=== PATIENT | female | born 1950 | race Caucasian/White ===

== ENCOUNTER → 2023-04-11 | Outpatient (CLI) | payer MEDICARE, OTHER ==
--- NOTE | 2023-04-11 14:58 | XR ---
EXAMINATION TYPE: XR chest 2V DATE OF EXAM: 04/11/2023 2:51 PM CLINICAL INDICATION:Female, 72 years old with history of Z01.818 ENCOUNTER FOR OTHER PREPROCEDURAL EX AM; [facility] COMPARISON: Chest radiographs from 04/11/2023 TECHNIQUE: XR chest 2V Frontal and lateral views of the chest. FINDINGS: Lungs/Pleura: There is no evidence of pleural effusion, focal consolidation, or pneumothorax. Pulmonary vascularity: Unremarkable. Heart/mediastinum: Cardiomediastinal silhouette is unremarkable. Musculoskeletal: No acute osseous pathology. IMPRESSION: No acute cardiopulmonary disease/process.
[2023-04-11 21:05] LABS: Basophils # (A) 0.05 X 10*3/uL (0.00-0.10); Basophils % (A) 0.5 %; Eosinophils # (A) 0.06 X 10*3/uL (0.04-0.35); Eosinophils % (A) 0.6 %; HCT 46.4 % (37.2-46.3); HGB 14.9 d/dL (12.0-15.0); Lymphocytes % (A) 24.9 %; MCH 29.6 pg (27.0-32.0); MCHC 32.1 d/dL (32.0-37.0); MCV 92.2 FL (80.0-97.0); Mean Platelet Volume 12.2 FL (9.5-12.2); Monocytes # (A) 0.76 X 10*3/uL (0.20-1.00); Monocytes % (A) 7.6 %; NRBC Per 100 WBC 0 X 10*3/uL (0.00-0.01); Neutrophils # (A) 6.64 X 10*3/uL (1.80-7.70); Neutrophils % (A) 66.1 %; Platelet Count 211 X 10*3/uL (140-440); RBC 5.03 X 10*6/uL (4.10-5.20); RDW 14.1 % (11.5-14.5); WBC 10.04 X 10*3/uL (4.50-10.00)
[2023-04-11 21:41] LABS: Blood Urea Nitrogen 21.7 mg/dL (9.0-27.0); Calcium 9.8 mg/dL (8.7-10.3); Carbon Dioxide 23.7 mmol/L (21.6-31.8); Chloride 103 mmol/L (96-109); Glucose 96 mg/dL (70-110); Potassium 3.8 mmol/L (3.5-5.5); Sodium 141 mmol/L (135-145)
== END | disposition home or self-care (01) ==
LOC: LABWHC1 13:47
PROVIDERS: ATTEND Orthopaedic Surgery
DX: Z01.818 Encounter for other preprocedural examination (principal); I49.3 Ventricular premature depolarization; R94.31 Abnormal electrocardiogram [ECG] [EKG]
CPT/HCPCS: 36415; 71046; 80048; 85025; 86850; 86900; 86901; 87070; 93005

== ENCOUNTER → 2023-04-22 | Outpatient (CLI) | payer MEDICARE, OTHER ==
[2023-04-22 21:48] LABS: Chol/HDL Ratio 4.85 Ratio; T4, Free (Free Thyroxine) 1.18 ng/dL (0.80-1.80)
== END | disposition home or self-care (01) ==
LOC: LABWHC1 13:21
PROVIDERS: ATTEND Internal Medicine Clinical Cardiac Electrophysiology
DX: I49.3 Ventricular premature depolarization (principal); E78.5 Hyperlipidemia, unspecified
CPT/HCPCS: 36415; 80061; 83721; 84439; 84443

== ENCOUNTER 2023-05-30 10:35 | Inpatient (IN) | payer MEDICARE, OTHER ==
[~2023-05-30 10:35] MED LIST: ALPRAZolam 0.25 MG TAB PO PRN; ASPIRIN 325 MG TAB PO STA; ATORVASTATIN 80 MG TAB PO STA; HEPARIN SODIUM,PORCINE (1 ML) 2,500 UNIT in SODIUM CHLORIDE 0.9% 250 ML IRRIGATION PRN; HEPARIN SODIUM,PORCINE 10,000 UNIT in SODIUM CHLORIDE 0.9% 1,000 ML IRRIGATION PRN; NITROGLYCERIN SL TABS 0.4 MG TAB SUBLINGUAL PRN; SODIUM CHLORIDE 0.9% 1,000 ML IV ONE
[2023-05-30] MEDS: ALPRAZolam 0.5 MG TAB PO PRN (11:02)
[2023-05-30] MEDS ORDERED: ACETAMINOPHEN TAB 500 MG TAB PO ONE (11:03)
[2023-05-30 11:09] LABS: Basophils # (A) 0.1 k/uL (0-0.2); Basophils % (A) 1 %; Eosinophils # (A) 0.1 k/uL (0-0.7); Eosinophils % (A) 1 %; HCT 44.2 % (34.0-46.0); HGB 14.6 gm/dL (11.4-16.0); Lymphocytes # (A) 2.6 k/uL (1.0-4.8); Lymphocytes % (A) 27 %; MCH 30.5 pg (25.0-35.0); MCHC 33.1 g/dL (31.0-37.0); MCV 92.2 fL (80.0-100.0); Mean Platelet Volume 8.7; Monocytes # (A) 0.5 k/uL (0-1.0); Monocytes % (A) 5 %; Neutrophils # (A) 6.3 k/uL (1.3-7.7); Neutrophils % (A) 65 %; Platelet Count 203 k/uL (150-450); RDW 14.2 % (11.5-15.5); WBC 9.6 k/uL (3.8-10.6)
[2023-05-30 11:44] LABS: African American GFR (CKD) >90 (>60 ml/min/1.73 sqM); Anion Gap 13 mmol/L; Blood Urea Nitrogen 21 mg/dL (7-17); Calcium 9.6 mg/dL (8.4-10.2); Carbon Dioxide 23 mmol/L (22-30); Chloride 102 mmol/L (98-107); Glucose 102 mg/dL (74-99); Non-African American GFR(CKD) >90 (>60 ml/min/1.73 sqM); Potassium 4.3 mmol/L (3.5-5.1); Sodium 138 mmol/L (137-145)
[2023-05-30] MEDS ORDERED: fentaNYL (PF) 50 MCG/ML 2 ML AMP ONE ×2 (13:41→14:19)
[2023-05-30] MEDS ORDERED: VERAPAMIL 2.5 MG/ML 2 ML AMP ONE ×2 (13:41→16:09)
[2023-05-30] MEDS: fentaNYL (PF) 50 MCG/ML 2 ML AMP IVP ONE ×8 (13:45→15:04)
[2023-05-30] MEDS: MIDAZOLAM 2 MG/2 ML VIAL IVP ONE ×8 (13:55→15:18)
[2023-05-30] MEDS ORDERED: LIDOCAINE 1% INJ 10MG/ML (20 ML MDV) SQ ONE (13:55)
[2023-05-30] MEDS ORDERED: VERAPAMIL 2.5 MG/ML 2 ML AMP INTRAARTER ONE (13:57)
[2023-05-30] MEDS ORDERED: HEPARIN SODIUM 1,000 UN/ML (10ML VL) ONE ×3 (14:00→16:08)
[2023-05-30] MEDS: HEPARIN SODIUM 1,000 UN/ML (10ML VL) IV ONE ×5 (14:01→16:26)
--- NOTE | 2023-05-30 14:38 | P.CARDCATH ---
Date of Procedure: 05/30/23 Description of Procedure: DIAGNOSTIC CORONARY ANGIOGRAPHY and LEFT HEART CATH REPORT PROCEDURES PERFORMED: Left heart catheterization Selective coronary angiography Moderate conscious sedation 26 mins Right radial access INDICATION: Positive nuclear stress test Patient was seen in the clinic for perioperative cardiac risk assessment for hip surgery. For this she underwent Lexiscan nuclear stress test which showed reversible perfusion defect inferolateral wall. For this she was scheduled for an outpatient heart catheterization. CONSENT: I have discussed the risks, benefits and alternative therapies for the above-mentioned procedure, sedation/analgesia and necessary blood product administration (if indicated, as they pertain to this patient). The patient has indicated understanding and acceptance of the risks and procedures discussed. Conscious Sedation: Patient's ECG, heart rate, blood pressure, pulse oximetry was monitored throughout the duration of procedure under my direct supervision. 3 mg Versed and 75 mg Fentanyl were used for induction of moderate conscious sedation. Total duration of moderate concious sedation 26 minutes. PROCEDURE: After explaining the risks, benefits and alternatives of the above mentioned procedures in detail to the patient, informed consent was obtained. Patient was taken to the catheterization lab, prepped and draped in usual ster ile fashion using universal precuations. Barbow and matthew test were performed to confirm adequate perfusion to fingers. Ultrasound was used to identify the radial artery. 1% lidocaine was infiltrated over the right radial artery. A 6- Latvian sheath was placed and secured in the right radial artery using modified Seldinger technique. The sheath was flushed and 5 mg verapamil was administered intra-arterially. J tipped wire was advanced under fluoroscopic guidance. Once the wire tip reached aortic root [5000] units of IV heparin was given. Over the wire JL4 diagnostic catheter was advanced. Wire was removed, catheter was flushed and manipulated under fluoroscopy to selectively engaged the left coronary ostium. Left coronary angioplasty was performed in different angiographic projections. This catheter was exchanged for a JR4 diagnostic catheter over the wire. The catheter was flushed and manipulated to cross the aortic valve. LV pressures were obtained. Pullback was performed across aortic valve and catheter was manipulated to selectively engage the right coronary ostium under fluoroscopic guidance. Right coronary angiography was performed in different angiographic projections. Catheter was removed over the wire. Radial sheath was flushed. Decision was made to proceed with further assessment of LAD stenosis by FFR and possible intervention HEMODYNAMICS: Aortic Pressure: 194/84 mmHg. LV pressure: 206/14 mmHg. LVEDP 30 mmHg. SELECTIVE CORONARY ARTERIOGRAPHY: LEFT MAIN: The left main is a large caliber vessel which trifurcates into the LAD, ramus and circumflex. Left main appears angiographically normal. RAMUS: Medium-sized vessel and appears angiographically normal. LEFT ANTERIOR DESCENDING CORONARY ARTERY: LAD is a large caliber vessel which wraps around to the apex. Proximal LAD has 10% luminal irregularities. Mid LAD just after giving diagonal branch has 80% calcific stenosis. Distal LAD has 20% luminal irregularities. It gives rise to a medium-sized diagonal branch which is approximately 2 mm in size. Proximal segment has 50-60% stenosis, LEFT CIRCUMFLEX CORONARY ARTERY: It is nondominant vessel. 100% occluded, calcific. Getting fillled retrogradely with left left and [id number] collaterals. RIGHT CORONARY ARTERY: Dominant vessel. The right coronary artery is a large caliber vessel which givesRV marginal , PDA and PLV branch. It has 20-30% luminal irregularities diffusely. IMPRESSION: 100% calcific stenosis of LCx with left left collaterals and [id number] collaterals 80% mid LAD disease 60% proximal diagonal disease 20-30% diffuse RCA disease PLAN: Plan for I have FFR assessment and possible PCI Performing Physician Juan Luis Pathak MD
[2023-05-30] MEDS ORDERED: CLOPIDOGREL 75 MG TAB ONE (14:43)
[2023-05-30] MEDS ORDERED: CLOPIDOGREL 75 MG TAB PO ONE (14:46)
[2023-05-30] MEDS ORDERED: IOPAMIDOL-370 100ML BTL INJ ONE ×4 (15:00→16:34)
[2023-05-30] MEDS ORDERED: SODIUM CHLORIDE 0.9% 1,000 ML IV ONE (15:04)
[2023-05-30] MEDS ORDERED: NITROGLYCERIN 1000MCG/10ML SYRINGE INTRACORON ONE ×2 (15:06→15:28)
[2023-05-30] MEDS ORDERED: HEPARIN SODIUM 1,000 UN/ML (10ML VL) IV ONE (15:09)
[2023-05-30] MEDS ORDERED: PROPOFOL 10 MG/ML 20 ML VIAL IV ONE (15:15)
[2023-05-30] MEDS ORDERED: ROCURONIUM 10 MG/ML (5 ML VIAL) IV ONE (15:15)
[2023-05-30] MEDS ORDERED: KETAMINE HCL IN 0.9 % NACL 50 MG/5 ML SYRINGE ONE (15:15)
[2023-05-30] MEDS ORDERED: PHENYLEPHRINE-0.9% NACL SYG 1,000 MCG/10 ML SYRINGE IVP ONE (15:39)
[2023-05-30] MEDS ORDERED: NALOXONE 0.4 MG/ML 1 ML VIAL IV PRN (17:30)
[2023-05-30 18:14] LABS: Glucose,Whole Blood 108 mg/dL (70-110)
[2023-05-30] MEDS: SODIUM CHLORIDE 0.9% 1,000 ML in EMPTY BAG 1 BAG IV SCH ×2 (18:27→22:42)
[2023-05-30] MEDS: NOREPINEPHRINE 4 MG in SODIUM CHLORIDE 0.9% 250 ML IV SCH (19:30)
--- NOTE | 2023-05-30 19:33 | XR ---
EXAMINATION TYPE: XR chest 1V DATE OF EXAM: 05/30/2023 7:16 PM CLINICAL INDICATION:Female, 72 years old with history of intubated; [facility] COMPARISON: Chest x-ray 04/11/2023 TECHNIQUE: XR chest 1V Frontal view of the chest. FINDINGS: Lines/Tubes/Devices: ET tube tip 3.4 cm above sachin. NG tube traverses below the diaphragm on the left with tip beyond th e field of view. There seems to be a peripheral catheter on the left with its tip over the axilla, co uld be PICC or midline. EKG leads overlie the chest. Heart/mediastinum: Cardiomediastinal silhouette partially obscured by the lung opacities. Heart is li ramses not significantly enlarged. Partially calcified aorta. Pulmonary vascularity: Not increased, Lungs/Pleura: Near complete opacification of the left hemithorax, with evidence of volume loss and sh ift of cardiomediastinal structures towards the left. Right lung appears slightly hyperinflated and c lear. No pneumothorax evident. Musculoskeletal: No acute osseous abnormality demonstrated in the limits of the exam. Mild degenerat emmett changes. Other findings: None. IMPRESSION: 1. Lines in place as above. 2. Near complete opacification of the left hemithorax. Likely considerations include atelectasis, wi th an element of parenchymal consolidation and/or pleural effusion possible.
[2023-05-30 19:53] LABS: ABG HCO3 23 mmol/L (21-25); ABG Oxygen Saturation 99.6 % (94-97); ABG PCO2 47 mmHg (35-45); ABG PH 7.29 (7.35-7.45); ABG PO2 308 mmHg (83-108); ABG TCO2 24 mmol/L (19-24); Allen Test Performed? Yes
[2023-05-30 19:55] LABS: Basophils # (A) 0.1 k/uL (0-0.2); Basophils % (A) 0 %; Eosinophils % (A) 0 %; HCT 43.4 % (34.0-46.0); HGB 14.1 gm/dL (11.4-16.0); Hypochromasia Slight; Lymphocytes # (A) 2.3 k/uL (1.0-4.8); Lymphocytes % (A) 17 %; MCH 30.8 pg (25.0-35.0); MCHC 32.4 g/dL (31.0-37.0); Mean Platelet Volume 8.4; Monocytes # (A) 0.8 k/uL (0-1.0); Monocytes % (A) 6 %; Neutrophils # (A) 10.4 k/uL (1.3-7.7); Neutrophils % (A) 76 %; Platelet Count 196 k/uL (150-450); RBC 4.57 m/uL (3.80-5.40); RDW 14.2 % (11.5-15.5); WBC 13.7 k/uL (3.8-10.6)
[2023-05-30 20:12] LABS: African American GFR (CKD) >90 (>60 ml/min/1.73 sqM); Anion Gap 13 mmol/L; Blood Urea Nitrogen 18 mg/dL (7-17); Calcium 8.6 mg/dL (8.4-10.2); Carbon Dioxide 18 mmol/L (22-30); Chloride 107 mmol/L (98-107); Glucose 99 mg/dL (74-99); Non-African American GFR(CKD) >90 (>60 ml/min/1.73 sqM); Potassium 3.8 mmol/L (3.5-5.1); Sodium 138 mmol/L (137-145)
[2023-05-30] MEDS ORDERED: MAG HYDROX/AL HYDROX/SIMETH 30 ML CUP PO PRN (21:30)
[2023-05-30] MEDS ORDERED: RX INFO: IV CONTRAST WAS GIVEN 1 EACH MISC MISCELLANE PRN (21:30)
[2023-05-30] MEDS ORDERED: ATROPINE SULFATE 0.1 MG/ML 10ML SYRINGE IV PRN (21:30)
[2023-05-30] MEDS ORDERED: ASPIRIN 81 MG PO PRN (21:31)
[2023-05-30 22:30] LABS: ABG Base Excess -4.1 mmol/L; ABG HCO3 22 mmol/L (21-25); ABG Oxygen Saturation 98.8 % (94-97); ABG PCO2 39 mmHg (35-45); ABG PH 7.35 (7.35-7.45); ABG PO2 134 mmHg (83-108); ABG TCO2 23 mmol/L (19-24); Allen Test Performed? Yes
[2023-05-30] MEDS: SODIUM CHLORIDE 0.9% 1,000 ML IV SCH (22:44)
[2023-05-30] MEDS: HYDROmorphone 0.5 MG/0.5 ML SYRINGE IVP PRN (23:06)
[2023-05-30 23:34] LABS: ALT 40 U/L (4-34); AST 127 U/L (14-36); African American GFR (CKD) >90 (>60 ml/min/1.73 sqM); Albumin 3.6 g/dL (3.5-5.0); Alkaline Phosphatase 97 U/L (38-126); Anion Gap 12 mmol/L; Blood Urea Nitrogen 18 mg/dL (7-17); Calcium 8.5 mg/dL (8.4-10.2); Carbon Dioxide 18 mmol/L (22-30); Chloride 108 mmol/L (98-107); Glucose 101 mg/dL (74-99); Non-African American GFR(CKD) >90 (>60 ml/min/1.73 sqM); Potassium 4.2 mmol/L (3.5-5.1); Sodium 138 mmol/L (137-145); Total Bilirubin 0.7 mg/dL (0.2-1.3); Total Protein 6.2 g/dL (6.3-8.2)
--- NOTE | 2023-05-30 23:54 | P.PRCINT ---
Percutaneous Coronary Int. - Percutaneous Coronary Intervention Percutaneous Coronary Intervention: PROCEDURES PERFORMED: Left coronary angiography, CSI rotational atherectomy LAD, PTCA diagonal 1 with a 2.5 x 12 balloon, PCI left main into LAD with overlapping 4.0 x 18mm and 4.0 x 15mm Xience MARSHA, post dilated with a 4.0 NC balloon, iFR diagonal/LAD, IVUS LAD INDICATION: Abnormal stress test, preoperative clearance PROCEDURE: After the risks, benefits and alternatives of the above mentioned procedure explained in detail with the patient, informed consent was obtained. Patient was taken to the catheterization lab and prepped and draped in usual fashion. A 6-Algerian sheath had been placed in the right radial artery. There was concern of diagonal and LAD disease with possible balance ischemia on stress test in addition to the circumflex disease. Therefore I was asked to perform iFR of the LAD and diagonal branch. Heparin was given. The FL 3.5 catheter was used to engage the left main. A 0.014 pressure wire was advanced into the left main and normalized. It was then advanced into the proximal d iagonal branch, 1 cm distal to the ostium and was abnormal at 0.79. The 0.014 pressure wire was advanced into LAD and iFR was abnormal at 0.77. Patient did have difficulty with laying flat secondary to extreme hip pain. Discussed significant CAD and need to lay flat for any intervention and patient felt would be able to lay flat. Therefore patient was given increased sedation and decision was made to perform PCI of diagonal and LAD. Initially attempted a CLS 3.5 however was too big. A 6Fr CLS 3.0 catheter was used to engage the left main. There was significant calcification and therefore decision was made to perform atherectomy. A 0.014 Viper wire was advanced into the distal LAD. CSI rotational atherectomy was performed of the LAD for 2 passes at low and 1 at high rpms. Next ballon angioplasty was performed with a 3.0 balloon. IVUS showed refernece vessel 3.75 x 4.0 vessel. A 0.014 BMW wire was advanced into the diagonal 1. Balloon angioplasty was performed of the diagonal 1 branch with a 2.5 x 12 mm balloon. Next balloon angioplasty was performed of the mid LAD with a 3.75 NC balloon. Finally repeat angioplasy was performed of the diagonal branch with a 2.5 NC balloon. Patient had struggled throughout procedure with agitation, moving off the table, and therefore anesthesia was called. Anesthesia was able to supply more sedation. Next a 4.0 x 15mm Xience MARSHA was placed in the mid LAD. The stent was post dilated with a 3.75 NC balloon. Patient did have progressive hypotension of unclear etiology and quickly went into vfib requiring defib. Repeat IVUS was performed which showed good stent apposition however a calcified left main into proximal LAD stenosis however appeared stable and initially felt best treated medically. Patient however was attempted to be weaned from sedation and had hypoxia and then had a second vfb arrest. Given repeat vfib, further angiography was performed with a 6Fr CLS 3.5 catheter. A 0.014 BMW wire was again advanced into the distal LAD. Repeat IVUS showed concern of left main into LAD disease. Therefore decision was made to cover left main into LAD. Balloon angioplasty was performed of the left main into LAD with a 4.0 NC balloon. Next a 4.0 x 18 mm XIence MARSHA was placed in the left main into LAD, overlapping the first stent. The stent was post dilated with a 4.0 NC balloon. Final angiograms were performed. Preintervention there was 70% LAD stenosis and DMITRI 3 flow and post intervention there was < 10 % stenosis and DMITRI 3 flow. The right radial sheath was removed and a TR band was placed with hemostasis achieved. The patient tolerated the procedure well. Patient was transported back to the post catheterization holding area in stable condition. Conscious Sedation: Patient was monitored under the direct supervision of myself for conscious sedation using Versed and fentanyl for a total duration of 144 minutes HEMODYNAMICS: Aorta: 133/71 SELECTIVE CORONARY ARTERIOGRAPHY: LEFT MAIN: The left main is a large caliber vessel which bifurcates into the LAD and circumflex. There is distal left main 40-50% stenosis extending into LAD. LEFT ANTERIOR DESCENDING CORONARY ARTERY: LAD is a large caliber vessel which wraps around to the apex. There is a proximal LAD 60-70% stenosis and a mid LAD eccentric LAD 70% stenosis. There is a mid LAD 40-50% stenosis. Diagonal 1 70% stenosis LEFT CIRCUMFLEX CORONARY ARTERY: Left circumflex is a moderate caliber vessel with proximal 100% stenosis with left to left collaterals RIGHT CORONARY ARTERY: The right coronary artery was not imaged, see separate report. FINAL IMPRESSION: 1. CAD as described above including 40-50% left main, proximal LAD 60-70%, mid LAD 70%, diagonal 1 70% stenosis, circumflex 100% stenosis. 2. iFR abnormal diagonal 1 and LAD 3. S/p PTCA diagonal 1 with a 2.5 x 12 balloon, PCI left main into LAD with overlapping 4.0 x 18mm and 4.0 x 15mm Xience MARSHA, post dilated with a 4.0 NC balloon 4. Vfib arrest x 2, likely related to ischemia, possibly related to CAD vs hypoxia/ sedation PLAN: 1. Aggressive risk factor modification per most recent ACC/AHA guidelines. 2. Continue dual antiplatelets with aspirin and Plavix for ideally 12 months given long area of stenosis as well as bifurcation lesion. 3. Tobacco cessation recommended.
[2023-05-31] MEDS: CHLORHEXIDINE GLUCONATE 15 ML CUP MUCOUS MEM SCH ×2 (00:11→08:01)
[2023-05-31 01:26] LABS: Glucose,Whole Blood 124 mg/dL (70-110)
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
[2023-05-31 04:48] LABS: Basophils % (A) 0 %; Eosinophils % (A) 0 %; HCT 37.1 % (34.0-46.0); HGB 12.3 gm/dL (11.4-16.0); Lymphocytes # (A) 1.9 k/uL (1.0-4.8); Lymphocytes % (A) 19 %; MCH 30.6 pg (25.0-35.0); MCHC 33.2 g/dL (31.0-37.0); MCV 91.9 fL (80.0-100.0); Mean Platelet Volume 8.7; Monocytes # (A) 0.7 k/uL (0-1.0); Monocytes % (A) 7 %; Neutrophils % (A) 72 %; Platelet Count 184 k/uL (150-450); RBC 4.03 m/uL (3.80-5.40); RDW 14.4 % (11.5-15.5); WBC 9.7 k/uL (3.8-10.6)
[2023-05-31 04:59] LABS: African American GFR (CKD) >90 (>60 ml/min/1.73 sqM); Anion Gap 10 mmol/L; Blood Urea Nitrogen 17 mg/dL (7-17); Calcium 8.5 mg/dL (8.4-10.2); Carbon Dioxide 21 mmol/L (22-30); Chloride 108 mmol/L (98-107); Glucose 90 mg/dL (74-99); Non-African American GFR(CKD) >90 (>60 ml/min/1.73 sqM); Potassium 3.6 mmol/L (3.5-5.1); Sodium 139 mmol/L (137-145)
[2023-05-31] MEDS: IPRATROPIUM-ALBUTEROL 3 ML NEB INHALATION SCH ×3 (05:04→12:08)
[2023-05-31 05:38] LABS: ABG HCO3 23 mmol/L (21-25); ABG PCO2 40 mmHg (35-45); ABG PH 7.37 (7.35-7.45); ABG PO2 146 mmHg (83-108); ABG TCO2 25 mmol/L (19-24); Allen Test Performed? Yes
[2023-05-31] MEDS ORDERED: POTASSIUM BICARBONATE/CIT AC 20 MEQ TABLET.EFF NG-TUBE SCH (08:00)
[2023-05-31] MEDS: METOPROLOL SUCCINATE (ER) 25 MG TAB.ER.24H PO SCH (08:02)
[2023-05-31] MEDS: CLOPIDOGREL 75 MG TAB PO SCH (08:02)
[2023-05-31] MEDS: ATORVASTATIN 80 MG TAB PO SCH (08:02)
[2023-05-31] MEDS: MORPHINE SULFATE 4 MG/ML SYRINGE IVP PRN ×4 (08:02→20:30)
[2023-05-31] MEDS: PANTOPRAZOLE 40 MG/10 ML VIAL IVP SCH (08:02)
[2023-05-31] MEDS: HEPARIN SODIUM,PORCINE 5,000 UNIT/ML 1 ML VIAL SQ SCH ×2 (08:02→17:28)
--- NOTE | 2023-05-31 08:27 | US ---
EXAMINATION TYPE: US chest DATE OF EXAM: 05/31/2023 Exam done portable in ICU COMPARISON: NONE CLINICAL INDICATION: Female, 72 years old with history of Markings for thoracentesis by pulmonary sta ff; TECHNIQUE: Targeted ultrasound of the posterior lower bilateral hemithoraces EXAM MEASUREMENTS: Right Pleural Effusion pocket size: 0 cm Left Pleural Effusion pocket size: 0 cm Right side not marked for possible thoracentesis outside the dept. Left side not marked for possible thoracentesis outside the dept. Pulmonologists are able to review the images in the patient?s EMR. IMPRESSIONS: No sizable pleural effusion.
--- NOTE | 2023-05-31 09:18 | XR ---
EXAMINATION TYPE: XR chest 1V portable DATE OF EXAM: 05/31/2023 COMPARISON: 05/30/2023 HISTORY: Tube placement TECHNIQUE: Single frontal view of the chest is obtained. FINDINGS: ET and NG tubes stable. There is improved aeration involving the left lung with a small ef fusion in remaining area of consolidation. Underlying COPD with no sizable pneumothorax. Reduced insp iration. Mild cardiomegaly and atherosclerotic change aorta. Degenerative changes spine. IMPRESSION: 1. Interval marked improvement in aeration involving the left lung relative to prior exam.
[2023-05-31] MEDS: HYDROmorphone 0.5 MG/0.5 ML SYRINGE IVP PRN ×2 (10:10→15:54)
[2023-05-31 12:22] LABS: Glucose,Whole Blood 96 mg/dL (70-110)
--- NOTE | 2023-05-31 12:58 | P.PN ---
Subjective Progress Note Date: 05/31/23 72 year old F with PMH of hypertension and dyslipidemia. Presented to [facility] for elective cardiac cath after being found to have a positive Lexiscan with reversible defect while undergoing cardiac clearance for elective hip surgery. Cardiac cath was complicated with 2 episodes of V. fib arrest requiring defibrillation and intubation. Cardiac cath: 40-50% left main, proximal LAD 60-70%, mid LAD 70%, diagonal 1 70% stenosis, circumflex 100% stenosis Underwent PCI to left main into LAD, PTCA diagonal 1. Transferred to the ICU for further management. 05/31 Patient was seen and examined. Extubated today. She complains of hip pain which is chronic in nature. She was on Levophed for a short period of time, now weaned off. Medications include ASA 81 mg PO QD, Lipitor 80 mg PO QD, Plavix 75 mg PO QD, Metoprolol 12.5 mg PO QD. NS running at 90 cc/hr. CBC unremarkable. ABG pH 7.37, pO2 146, pCO2 40. BMP Cl 108, bicarb 21, Cr 0.48. Repeat CXR today shows improved aeration of the left lung. General: non toxic, no distress, appears at stated age Derm: warm, dry Head: atraumatic, normocephalic, symmetric Eyes: EOMI, no lid lag, anicteric sclera Cardiovascular: S1S2 reg, no murmur Lungs: Decreased BS to auscultation bilaterally , no accessory muscle use Ext: no gross muscle atrophy, no edema, no contractures Neuro: no focal neuro deficits Psych: Alert, oriented, appropriate affect Based on my assessment of this patient, this patient meets a high complexity level of care. Patient has an acute diagnosis of V Fib arrest during cardiac cath status post PCI L main to LAD, PTCA diagonal 1 that poses a threat to life or bodily function. Acute hypoxic respiratory failure: Improving. Extubated 05/31. V. fib cardiac arrest: Likely related to hypoxia during cardiac cath. Severe CAD status post PCI to left main into LAD, PTCA diagonal 1: ASA 81 mg PO QD, Lipitor 80 mg PO QD, Plavix 75 mg PO QD, Metoprolol 12.5 mg PO QD. Obtain Echo, A1c, Lipid panel. Shock: Required short period of Levophed. None currently. Left hemithorax opacification: Chest US shows no pleural effusion. CXR done today significantly improved. CODE STATUS: FULL CODE DVT Prophylaxis: Heparin SQ GI Prophylaxis: Protonix IV Designated medical POA if patient is not able to make medical decisions for them selves: I have reviewed the following customer sales consultant notes: Cardiology, Pulmonology note. I have reviewed the results of the following tests: CBC. BMP. ABG. I have ordered the following tests: Echo. A1c. Lipid panel. I have discussed the care of this patient with the following independent historian: I have independently interpreted the following test below: CXR as above. I have discussed the management of this patient with the following physician: Objective - Vital Signs Vital signs: Vital Signs Temp 98.7 F 05/31/23 08:00 Pulse 61 05/31/23 08:00 Resp 12 05/31/23 08:00 BP 141/101 05/31/23 08:00 Pulse Ox 100 05/31/23 08:00 FiO2 50 05/31/23 08:00 Intake & Output 05/30/23 05/31/23 05/31/23 18:59 06:59 18:59 Intake Total 6129.786 9098.201 220.541 Output Total 625 890 100 Balance 488.365 475.201 120.541 Weight 89.1 kg 91.9 kg Intake: IV 1100 1035 180 Sodium Chloride 0.9% 1, 810 180 000 ml @ 90 mls/hr IV . Q11H7M [facility] Rx#:[id number] Sodium Chloride 0.9% 1, 225 000 ml In Empty Bag 1 bag @ 1 ML/KG/HR 81.647 mls/ hr IV .[id number] [facility] Rx#: [id number] Intake, IV Titration 13.365 330.201 40.541 Amount Norepinephrine 4 mg In 43.566 Sodium Chloride 0.9% 250 ml @ 0.03 MCG/KG/MIN 10. 184 mls/hr IV .Q24H [facility] Rx#:[id number] propofoL 1,000 mg In 13.365 286.635 40.541 Empty Bag 1 bag @ 15 MCG/ KG/MIN 8.019 mls/hr IV . [id number] [facility] Rx#:[id number] Output: Urine 625 890 100 Other: Voiding Method Indwelling Catheter Indwelling Catheter - Labs CBC & Chem 7: 05/31/23 04:09 05/31/23 04:09 Labs: Abnormal Lab Results - Last 24 Hours (Table) 05/30/23 05/30/23 05/30/23 Range/Units 10:45 19:28 19:28 WBC 13.7 H (3.8-10.6) k/uL Neutrophils # 10.4 H (1.3-7.7) k/uL ABG pH (7.35-7.45) ABG pCO2 (35-45) mmHg ABG pO2 (83-108) mmHg ABG Total CO2 (19-24) mmol/L ABG O2 Saturation (94-97) % Chloride (98-107) mmol/L Carbon Dioxide 18 L (22-30) mmol/L BUN 21 H 18 H (7-17) mg/dL Creatinine 0.48 L (0.52-1.04) mg/dL Glucose 102 H (74-99) mg/dL POC Glucose (mg/dL) (70-110) mg/dL AST (14-36) U/L ALT (4-34) U/L Troponin I (0.000-0.034) ng/mL Total Protein (6.3-8.2) g/dL 05/30/23 05/30/23 05/30/23 Range/Units 19:28 19:51 22:14 WBC (3.8-10.6) k/uL Neutrophils # (1.3-7.7) k/uL ABG pH 7.29 L (7.35-7.45) ABG pCO2 47 H (35-45) mmHg ABG pO2 308 H 134 H (83-108) mmHg ABG Total CO2 (19-24) mmol/L ABG O2 Saturation 99.6 H 98.8 H (94-97) % Chloride (98-107) mmol/L Carbon Dioxide (22-30) mmol/L BUN (7-17) mg/dL Creatinine (0.52-1.04) mg/dL Glucose (74-99) mg/dL POC Glucose (mg/dL) (70-110) mg/dL AST (14-36) U/L ALT (4-34) U/L Troponin I 2.810 H* (0.000-0.034) ng/mL Total Protein (6.3-8.2) g/dL 05/30/23 05/30/23 05/31/23 Range/Units 23:13 23:13 01:22 WBC (3.8-10.6) k/uL Neutrophils # (1.3-7.7) k/uL ABG pH (7.35-7.45) ABG pCO2 (35-45) mmHg ABG pO2 (83-108) mmHg ABG Total CO2 (19-24) mmol/L ABG O2 Saturation (94-97) % Chloride 108 H (98-107) mmol/L Carbon Dioxide 18 L (22-30) mmol/L BUN 18 H (7-17) mg/dL Creatinine 0.43 L (0.52-1.04) mg/dL Glucose 101 H (74-99) mg/dL POC Glucose (mg/dL) 124 H (70-110) mg/dL AST 127 H (14-36) U/L ALT 40 H (4-34) U/L Troponin I 16.500 H* (0.000-0.034) ng/mL Total Protein 6.2 L (6.3-8.2) g/dL 05/31/23 05/31/23 05/31/23 Range/Units 04:09 04:09 05:33 WBC (3.8-10.6) k/uL Neutrophils # (1.3-7.7) k/uL ABG pH (7.35-7.45) ABG pCO2 (35-45) mmHg ABG pO2 146 H (83-108) mmHg ABG Total CO2 25 H (19-24) mmol/L ABG O2 Saturation 99.0 H (94-97) % Chloride 108 H (98-107) mmol/L Carbon Dioxide 21 L (22-30) mmol/L BUN (7-17) mg/dL Creatinine 0.48 L (0.52-1.04) mg/dL Glucose (74-99) mg/dL POC Glucose (mg/dL) (70-110) mg/dL AST (14-36) U/L ALT (4-34) U/L Troponin I 27.400 H* (0.000-0.034) ng/mL Total Protein (6.3-8.2) g/dL
--- NOTE | 2023-05-31 15:15 | P.PN ---
Subjective HISTORY OF PRESENTING ILLNESS Patient is pleasant 72-year-old female with history of not seen doctor's office in, tobacco abuse, hyperlipidemia with arthritis being evaluated for hip surgery. She underwent diagnostic heart catheterization yesterday secondary to abnormal stress test which showed a CT of the circumflex however additional left main as well as LAD and diagonal stenosis. Therefore she underwent iFR of the diagonal and LAD branch which were abnormal. She had difficulty lying flat on the table with extreme hip pain despite increased amounts of Versed and fentanyl. Therefore anesthesia was called with need for increased sedation. With ballooning and stenting she did have V. fib arrest requiring cardioversion and then had recurrent V. fib when taking final pictures with additional hypotensive episodes and therefore required stenting of left main and LAD. She was intubated and sedated and transferred to ICU. Her initial chest x-ray did show complete opacification of the left lung possibly related to mucous plugging or placement of ET tube however this had resolved overnight. She was extubated this morning and denies any chest pain or pressure. She did have elevated troponins up to 27. She currently denies any chest pain or pressure or shortness breath. Blood pressure is borderline in the 110s to 120s systolic. PHYSICAL EXAMINATION Vital signs reviewed. CONSTITUTIONAL: No apparent distress. HEENT: Head is normocephalic. Pupils are equal, round. Sclerae anicteric. Mucous membranes of the mouth are moist. No JVD. No carotid bruit. CHEST EXAMINATION: Lungs are clear to auscultation. No chest wall tenderness is noted on palpation or with deep breathing. HEART EXAMINATION: Regular rate and rhythm. S1, S2 heard. No murmurs, gallops or rub. ABDOMEN: Soft, nontender. Positive bowel sounds. EXTREMITIES: 2+ peripheral pulses, no lower extremity edema and no calf tenderness. NEUROLOGIC EXAMINATION: Patient is awake, alert and oriented x3. ASSESSMENT 1. CAD status post PCI of left main into LAD and balloon angioplasty diagonal branch, 05/30/23 2. Non-STEMI, likely related to angioplasty plus or minus hypoxia 3. Acute on chronic respiratory failure component of heart failure 4. Acute on chronic diastolic heart failure 5. Status post V. fib arrest 2 in the [facility] [employer] related to angioplasty 6. Tobacco abuse 7. Hypotension previously on vasopressors may be related to sedation PLAN Patient with prolonged procedure and unfortunately had 2 episodes of V. fib arrest. May be related to sedation, hypoxia or related to coronary intervention. Patient additionally with non-STEMI likely related to angioplasty. At this point appears to be recovering well. Preliminary echo results showed preserved EF. Continue with current regimen however agree with holding losartan given decreased blood pressures. Continue metoprolol as able. Hopeful discharge within 24 hours if relatively stable. Objective - Vital Signs Vital signs: Vital Signs Temp 98.4 F 05/31/23 12:00 Pulse 79 05/31/23 14:00 Resp 10 L 05/31/23 14:00 BP 117/77 05/31/23 14:00 Pulse Ox 92 L 05/31/23 14:00 FiO2 40 05/31/23 09:15 Intake & Output 05/30/23 05/31/23 05/31/23 18:59 06:59 18:59 Intake Total 2881.863 5850.201 590.564 Output Total 625 890 270 Balance 488.365 475.201 320.564 Weight 89.1 kg 91.9 kg Intake: IV 1100 1035 540 Sodium Chloride 0.9% 1, 810 540 000 ml @ 90 mls/hr IV . Q11H7M [facility] Rx#:[id number] Sodium Chloride 0.9% 1, 225 000 ml In Empty Bag 1 bag @ 1 ML/KG/HR 81.647 mls/ hr IV .[id number] [facility] Rx#: [id number] Intake, IV Titration 13.365 330.201 50.564 Amount Norepinephrine 4 mg In 43.566 Sodium Chloride 0.9% 250 ml @ 0.03 MCG/KG/MIN 10. 184 mls/hr IV .Q24H [facility] Rx#:[id number] propofoL 1,000 mg In 13.365 286.635 50.564 Empty Bag 1 bag @ 15 MCG/ KG/MIN 8.019 mls/hr IV . [id number] [facility] Rx#:[id number] Output: Urine 625 890 270 Other: Voiding Method Indwelling Catheter Indwelling Catheter - Labs CBC & Chem 7: 05/31/23 04:09 05/31/23 04:09 Labs: Abnormal Lab Results - Last 24 Hours (Table) 05/30/23 05/30/23 05/30/23 Range/Units 19:28 19:28 19:28 WBC 13.7 H (3.8-10.6) k/uL Neutrophils # 10.4 H (1.3-7.7) k/uL ABG pH (7.35-7.45) ABG pCO2 (35-45) mmHg ABG pO2 (83-108) mmHg ABG Total CO2 (19-24) mmol/L ABG O2 Saturation (94-97) % Chloride (98-107) mmol/L Carbon Dioxide 18 L (22-30) mmol/L BUN 18 H (7-17) mg/dL Creatinine 0.48 L (0.52-1.04) mg/dL Glucose (74-99) mg/dL POC Glucose (mg/dL) (70-110) mg/dL AST (14-36) U/L ALT (4-34) U/L Troponin I 2.810 H* (0.000-0.034) ng/mL Total Protein (6.3-8.2) g/dL 05/30/23 05/30/23 05/30/23 Range/Units 19:51 22:14 23:13 WBC (3.8-10.6) k/uL Neutrophils # (1.3-7.7) k/uL ABG pH 7.29 L (7.35-7.45) ABG pCO2 47 H (35-45) mmHg ABG pO2 308 H 134 H (83-108) mmHg ABG Total CO2 (19-24) mmol/L ABG O2 Saturation 99.6 H 98.8 H (94-97) % Chloride (98-107) mmol/L Carbon Dioxide (22-30) mmol/L BUN (7-17) mg/dL Creatinine (0.52-1.04) mg/dL Glucose (74-99) mg/dL POC Glucose (mg/dL) (70-110) mg/dL AST (14-36) U/L ALT (4-34) U/L Troponin I 16.500 H* (0.000-0.034) ng/mL Total Protein (6.3-8.2) g/dL 05/30/23 05/31/23 05/31/23 Range/Units 23:13 01:22 04:09 WBC (3.8-10.6) k/uL Neutrophils # (1.3-7.7) k/uL ABG pH (7.35-7.45) ABG pCO2 (35-45) mmHg ABG pO2 (83-108) mmHg ABG Total CO2 (19-24) mmol/L ABG O2 Saturation (94-97) % Chloride 108 H 108 H (98-107) mmol/L Carbon Dioxide 18 L 21 L (22-30) mmol/L BUN 18 H (7-17) mg/dL Creatinine 0.43 L 0.48 L (0.52-1.04) mg/dL Glucose 101 H (74-99) mg/dL POC Glucose (mg/dL) 124 H (70-110) mg/dL AST 127 H (14-36) U/L ALT 40 H (4-34) U/L Troponin I (0.000-0.034) ng/mL Total Protein 6.2 L (6.3-8.2) g/dL 05/31/23 05/31/23 Range/Units 04:09 05:33 WBC (3.8-10.6) k/uL Neutrophils # (1.3-7.7) k/uL ABG pH (7.35-7.45) ABG pCO2 (35-45) mmHg ABG pO2 146 H (83-108) mmHg ABG Total CO2 25 H (19-24) mmol/L ABG O2 Saturation 99.0 H (94-97) % Chloride (98-107) mmol/L Carbon Dioxide (22-30) mmol/L BUN (7-17) mg/dL Creatinine (0.52-1.04) mg/dL Glucose (74-99) mg/dL POC Glucose (mg/dL) (70-110) mg/dL AST (14-36) U/L ALT (4-34) U/L Troponin I 27.400 H* (0.000-0.034) ng/mL Total Protein (6.3-8.2) g/dL Microbiology - Last 24 Hours (Table) 05/31/23 00:01 Gram Stain - Preliminary Sputum
[2023-05-31] MEDS ORDERED: ALBUTEROL NEBULIZED 2.5 MG/3 ML INHALATION PRN (16:16)
[2023-05-31] MEDS: SODIUM CHLORIDE 0.9% 1,000 ML IV SCH (17:28)
[2023-05-31] MEDS: NOREPINEPHRINE 4 MG in SODIUM CHLORIDE 0.9% 250 ML IV SCH (19:05)
[2023-05-31] MEDS: ALPRAZolam 0.5 MG TAB PO PRN (20:30)
[2023-06-01] MEDS: HEPARIN SODIUM,PORCINE 5,000 UNIT/ML 1 ML VIAL SQ SCH ×3 (00:40→18:09)
[2023-06-01] MEDS: HYDROcodone/APAP 5-325MG 1 EACH TAB PO PRN ×4 (01:05→22:21)
[2023-06-01] MEDS: SODIUM CHLORIDE 0.9% 1,000 ML IV SCH ×2 (01:14→09:54)
[2023-06-01] MEDS: MORPHINE SULFATE 4 MG/ML SYRINGE IVP PRN ×2 (02:21→15:34)
[2023-06-01] MEDS: ALPRAZolam 0.5 MG TAB PO PRN (04:53)
[2023-06-01 05:16] LABS: Basophils % (A) 0 %; Eosinophils # (A) 0.1 k/uL (0-0.7); Eosinophils % (A) 1 %; HCT 37.9 % (34.0-46.0); HGB 12.5 gm/dL (11.4-16.0); Lymphocytes # (A) 2.7 k/uL (1.0-4.8); Lymphocytes % (A) 26 %; MCH 30.7 pg (25.0-35.0); MCHC 33.1 g/dL (31.0-37.0); MCV 92.7 fL (80.0-100.0); Mean Platelet Volume 8.5; Monocytes # (A) 0.7 k/uL (0-1.0); Monocytes % (A) 7 %; Neutrophils # (A) 6.6 k/uL (1.3-7.7); Neutrophils % (A) 64 %; Platelet Count 179 k/uL (150-450); RBC 4.09 m/uL (3.80-5.40); WBC 10.3 k/uL (3.8-10.6)
[2023-06-01 05:25] LABS: African American GFR (CKD) >90 (>60 ml/min/1.73 sqM); Anion Gap 10 mmol/L; Blood Urea Nitrogen 18 mg/dL (7-17); Calcium 8.8 mg/dL (8.4-10.2); Carbon Dioxide 24 mmol/L (22-30); Chloride 104 mmol/L (98-107); Glucose 70 mg/dL (74-99); Non-African American GFR(CKD) >90 (>60 ml/min/1.73 sqM); Potassium 3.8 mmol/L (3.5-5.1); Sodium 138 mmol/L (137-145)
[2023-06-01] MEDS ORDERED: POTASSIUM CHLORIDE ER 20 MEQ TAB.ER PO SCH (08:00)
[2023-06-01] MEDS: IPRATROPIUM-ALBUTEROL 3 ML NEB INHALATION SCH (08:29)
--- NOTE | 2023-06-01 08:30 | XR ---
EXAMINATION TYPE: XR chest 1V portable DATE OF EXAM: 06/01/2023 COMPARISON: 05/31/2023 HISTORY: Shortness of breath TECHNIQUE: Single frontal view of the chest is obtained. FINDINGS: ET and NG tubes been removed. There is interval development of diffuse interstitial patter n. There is improved aeration involving the left lung with a small effusion in remaining area of cons olidation. Underlying COPD with no sizable pneumothorax. Reduced inspiration. Mild cardiomegaly and a therosclerotic change aorta. Degenerative changes spine. IMPRESSION: Interval development of diffuse interstitial pattern related to venous congestion or int erstitial pneumonitis. Basilar atelectasis versus early infiltrate stable.
[2023-06-01 08:41] LABS: Chol/HDL Ratio 2.88 Ratio
[2023-06-01 09:04] LABS: LDL Cholesterol,Calculated 58.1 mg/dL (0.0-131.0)
[2023-06-01] MEDS: METOPROLOL SUCCINATE (ER) 25 MG TAB.ER.24H PO SCH (09:53)
[2023-06-01] MEDS: ATORVASTATIN 80 MG TAB PO SCH (09:54)
[2023-06-01] MEDS: CLOPIDOGREL 75 MG TAB PO SCH (09:54)
[2023-06-01] MEDS: PANTOPRAZOLE 40 MG/10 ML VIAL IVP SCH (09:54)
--- NOTE | 2023-06-01 10:48 | P.PN ---
Subjective Progress Note Date: 06/01/23 72 year old F with PMH of hypertension and dyslipidemia. Presented to [facility] for elective cardiac cath after being found to have a positive Lexiscan with reversible defect while undergoing cardiac clearance for elective hip surgery. Cardiac cath was complicated with 2 episodes of V. fib arrest requiring defibrillation and intubation. Cardiac cath: 40-50% left main, proximal LAD 60-70%, mid LAD 70%, diagonal 1 70% stenosis, circumflex 100% stenosis Underwent PCI to left main into LAD, PTCA diagonal 1. Transferred to the ICU for further management. 05/31 Patient was seen and examined. Extubated today. She complains of hip pain which is chronic in nature. She was on Levophed for a short period of time, now weaned off. Medications include ASA 81 mg PO QD, Lipitor 80 mg PO QD, Plavix 75 mg PO QD, Metoprolol 12.5 mg PO QD. NS running at 90 cc/hr. CBC unremarkable. ABG pH 7.37, pO2 146, pCO2 40. BMP Cl 108, bicarb 21, Cr 0.48. Repeat CXR today shows improved aeration of the left lung. 06/01 Patient was seen and examined. She reports intractable back pain. CBC unremarkable. BMP BUN 18, glu 70. CXR shows complete expansion of the left lung with some pulmonary vascular congestion. Started on Lasix 20 mg IV QD. Echocardiogram is pending. General: non toxic, no distress, appears at stated age Derm: warm, dry Head: atraumatic, normocephalic, symmetric Eyes: EOMI, no lid lag, anicteric sclera Cardiovascular: S1S2 reg, no murmur Lungs: Decreased BS to auscultation bilaterally , no accessory muscle use Ext: no gross muscle atrophy, no edema, no contractures Neuro: no focal neuro deficits Psych: Alert, oriented, appropriate affect Based on my assessment of this patient, this patient meets a high complexity level of care. Patient has an acute diagnosis of V Fib arrest during cardiac cath status post PCI L main to LAD, PTCA diagonal 1 that poses a threat to life or bodily fu nction. Acute hypoxic respiratory failure: Improving. Extubated 05/31. Lasix 20 mg IV QD started 06/01. V. fib cardiac arrest: Likely related to hypoxia during cardiac cath. NSTEMI: Troponin 2.81, 16.5, 27.4. ASA, Lipitor, Plavix, Metoprolol as below. Severe CAD status post PCI to left main into LAD, PTCA diagonal 1: ASA 81 mg PO QD, Lipitor 80 mg PO QD, Plavix 75 mg PO QD, Metoprolol 12.5 mg PO QD. Obtain Echo, A1c, Lipid panel. Shock: Required short period of Levophed. None currently. Resolved: Left hemithorax opacification CODE STATUS: FULL CODE DVT Prophylaxis: Heparin SQ GI Prophylaxis: Protonix IV Designated medical POA if patient is not able to make medical decisions for themselves: I have reviewed the following health and safety consultant notes: Cardiology, Pulmonology note. I have reviewed the results of the following tests: CBC. BMP. I have ordered the following tests: Pending: Echo. A1c. Lipid panel. I have discussed the care of this patient with the following independent historian: I have independently interpreted the following test below: CXR as above. I have discussed the management of this patient with the following physician: This patient meets a high level of care for the following reasons: Patient requires IV lasix which requires intensive monitoring for renal toxi citiy. Patient requires IV narcotics which requires intensive monitoring for respiratory depression. Objective - Vital Signs Vital signs: Vital Signs Temp 97.9 F 06/01/23 06:00 Pulse 53 L 06/01/23 07:00 Resp 17 06/01/23 07:00 BP 109/57 06/01/23 07:00 Pulse Ox 98 06/01/23 07:00 FiO2 40 05/31/23 09:15 Intake & Output 05/31/23 06/01/23 06/01/23 18:59 06:59 18:59 Intake Total 1180.564 100 270 Output Total 530 500 0 Balance 650.564 -400 270 Weight 88.8 kg Intake: IV 630 270 Sodium Chloride 0.9% 1, 630 270 000 ml @ 90 mls/hr IV . [id number] [facility] Rx#:[id number] Intake, IV Titration 50.564 Amount propofoL 1,000 mg In 50.564 Empty Bag 1 bag @ 15 MCG/ KG/MIN 8.019 mls/hr IV . [id number] [facility] Rx#:[id number] Oral 500 100 Output: Urine 530 500 0 Other: Voiding Method Indwelling Catheter External Catheter # Voids 0 - Labs CBC & Chem 7: 06/01/23 04:53 06/01/23 04:53 Labs: Abnormal Lab Results - Last 24 Hours (Table) 06/01/23 Range/Units 04:53 BUN 18 H (7-17) mg/dL Glucose 70 L (74-99) mg/dL Microbiology - Last 24 Hours (Table) 05/31/23 00:01 Gram Stain - Preliminary Sputum
[2023-06-01 12:22] VITALS: BMI 32.8
--- NOTE | 2023-06-01 12:22 | CA ---
Transthoracic Echo Report Name: Trish Rodriguez Age: 72 Gender: F : 1950 Exam Date: 05/31/2023 10:49 Exam Location: [facility] Ht (in): 65 Wt (lb): 202 Ordering Physician: Jona Kaur MD Attending/Referring Phys: Secretarial Teacher Juana Roy [facility] Procedure CPT: Indications: vfib arrest Cardiac Hx: Technical Quality: Technically difficult study Contrast 1: Definity Total Dose (mL): 6 Contrast 2: Total Dose (mL): MEASUREMENTS (Male / Female) Normal Values 2D ECHO LV Diastolic Diameter PLAX 5.1 cm 4.2 - 5.9 / 3.9 - 5.3 cm LV Systolic Diameter PLAX 3.8 cm IVS Diastolic Thickness 1.2 cm 0.6 - 1.0 / 0.6 - 0.9 cm LVPW Diastolic Thickness 1.1 cm 0.6 - 1.0 / 0.6 - 0.9 cm LV Relative Wall Thickness 0.5 LVOT Diameter 2.0 cm Ascending Aorta Diameter 2.9 cm M-MODE Aortic Root Diameter MM 2.3 cm LA Systolic Diameter MM 4.8 cm LA Ao Ratio MM 2.1 AV Cusp Separation MM 1.6 cm DOPPLER AV Peak Velocity 256.6 cm/s AV Peak Gradient 26.3 mmHg AV Mean Velocity 184.0 cm/s AV Mean Gradient 14.8 mmHg AV Velocity Time Integral 55.6 cm LVOT Peak Velocity 178.9 cm/s LVOT Peak Gradient 12.8 mmHg LVOT Velocity Time Integral 35.5 cm LVOT Stroke Volume 107.0 cm??? LVOT Stroke Volume Index 53.9 ml/m??? LVOT Cardiac Index 3848.9 cm???/min???m??? AV Area Cont Eq vti 1.9 cm??? AV Area Cont Eq pk 2.1 cm??? MV Peak Velocity 131.0 cm/s MV Peak Gradient 6.9 mmHg MV Mean Velocity 97.7 cm/s MV Mean Gradient 4.1 mmHg MV Velocity Time Integral 39.2 cm Mitral E Point Velocity 109.9 cm/s Mitral A Point Velocity 108.0 cm/s Mitral E to A Ratio 1.0 MV Deceleration Time 278.0 ms LV E' Lateral Velocity 5.8 cm/s Mitral E to LV E' Lateral Ratio 19.0 LV E' Septal Velocity 5.1 cm/s Mitral E to LV E' Septal Ratio 21.6 TR Peak Velocity 237.5 cm/s TR Peak Gradient 22.6 mmHg Right Atrial Pressure 3.0 mmHg Pulmonary Artery Systolic Pressu 25.6 mmHg Right Ventricular Systolic Press 25.6 mmHg FINDINGS Left Ventricle Left ventricular cavity size is normal. Low normal left ventricular systolic function with no obvious regional wall motion abnormalities. left ventricular ejection fraction is estimated at 50-55%. Right Ventricle Normal right ventricular size. Right Atrium Normal right atrial size. Left Atrium Moderate left atrial dilatation. Mitral Valve Mitral valve thickened. Mild mitral annular calcification. Mild mitral regurgitation. Aortic Valve Aortic valve not well visualized. Thickening of the aortic valve cusps. Aortic valve sclerosis. No aortic regurgitation. Tricuspid Valve Structurally normal tricuspid valve. Trace tricuspid regurgitation. Pulmonic Valve Pulmonic valve not well visualized. Pericardium No pericardial effusion. Aorta Normal size aortic root and proximal ascending aorta. CONCLUSIONS Normal LV size and wall thickness. Normal LV systolic function LVEF estimated at 55% Moderate left atrial dilatation next and mild mitral regurgitation Aortic valve sclerosis with no stenosis No pericardial effusion RVSP estimated at 26 mmHg Previewed by: Dr Juan Luis Pathak (Electronically Signed) Final Date: 01 June 2023 12:22
--- NOTE | 2023-06-01 13:20 | P.PN ---
Subjective Progress Note Date: 06/01/23 Principal diagnosis: Ventricular fibrillation cardiac arrest I am seeing this patient in consultation today 05/31/2023 after the patient underwent successful stenting of the left main to LAD 2. During the procedure, the patient did have a V. fib cardiac arrest 2, was successfully resuscitated with a limited downtime. Patient was intubated in the [facility], and transferred to the intensive care unit in critical condition. Patient is a 72-year-old white female with past medical history significant for hypertension, hyperlipidemia, and current tobacco smoker. Patient was undergoing cardiac clearance for a potential procedure, she was found to have a abnormal nuclear s tress test with reversible ischemia of the inferolateral wall. Patient was brought in for an elective heart catheterization yesterday, which showed significant multivessel coronary artery disease. Two stents were placed within the left main to the LAD. During the procedure, the patient did have a V. fib cardiac arrest 2, and was successfully resuscitated with a limited downtime. Patient was intubated by [facility], and transferred to the intensive care unit. Patient is currently intubated mechanical ventilator. Post-intubation chest x- ray shows the endotracheal tube approximately 3.4 cm above the sachin. Orogastric tube traverses below the diaphragm. The left hemithorax is completely opacified, possible mucous plug, obstruction/atelectasis or even possible pleural effusion. Lung sounds have equal aeration. Peak pressures are 26 and static airway pressures are 15. Most recent ABG shows pH of 7.35, pCO2 39, pO2 of 134, this was done on FiO2 of 50%. Current ventilator settings are a ssist control, respiratory rate 18, tidal volume 450, FiO2 50%, PEEP of 5. Patient is sedated on propofol at 50 mcg/kg/m. She is breathing above set respiratory rate. Appears to be uncomfortable and is reaching for the endotracheal tube. She does not follow commands but will withdraw to painful s timuli. Blood pressure was marginal on arrival, and she was started on low-dose norepinephrine which is infusing at 0.03 mcg/kg/m. Normal saline is infusing at 90 ML's per hour. CBC following the procedure the WBC count of 13.7, hemoglobin 14.1, hematocrit 43.4, platelets 196. Most recent CMP shows a sodium 138, potassium 4.2, chloride 108, serum bicarb 18, BUN 18, creatinine 0.43, glucose 101. LFTs mildly elevated. Troponins are elevated and trending up, most recent 16.5 following the patient's heart catheterization, PCI/stenting, and V. fib arrest. Patient will be monitored in the intensive care unit. Patient reevaluated today on 06/01/2023, patient was extubated yesterday to a nasal cannula, and she remains extubated. Patient is sitting at a bedside chair, not in any distress, apparently she had issues with low blood pressure yesterday, patient was given fluid yesterday, and her IV fluid is running at 90 mL per hour. Chest x-ray today is showing mild interstitial edema as I recommended cutting down her IV fluid to KVO, and 20 mg of Lasix was given IV push. Patient is on 3 L nasal cannula, not in distress. CBC is relatively normal, basic metabolic profile is normal, renal profile is normal. Echocardiogram showed good LV function, relatively normal right-sided pressures, aortic sclerosis but no stenosis. Patient did undergo PCI of the left main into LAD and balloon angioplasty of diagonal branch on 05/30/2023 Objective - Vital Signs Vital signs: Vital Signs Temp 98.7 F 06/01/23 12:00 Pulse 70 06/01/23 12:00 Resp 17 06/01/23 12:00 BP 108/59 06/01/23 12:00 Pulse Ox 92 L 06/01/23 12:00 FiO2 40 05/31/23 09:15 Intake & Output 05/31/23 06/01/23 06/01/23 18:59 06:59 18:59 Intake Total 1180.564 100 270 Output Total 530 500 350 Balance 650.564 -400 -80 Weight 88.8 kg 89.4 kg Intake: IV 630 270 Sodium Chloride 0.9% 1, 630 270 000 ml @ 10 mls/hr IV . Q24H [facility] Rx#:[id number] Intake, IV Titration 50.564 Amount propofoL 1,000 mg In 50.564 Empty Bag 1 bag @ 15 MCG/ KG/MIN 8.019 mls/hr IV . [id number] [facility] Rx#:[id number] Oral 500 100 Output: Urine 530 500 350 Other: Voiding Method Indwelling Catheter External Catheter # Voids 0 - Exam Physical Exam: Revealed 72-year-old female in no distress Head: Atraumatic, normocephalic HEENT:[Neck is supple.] [No neck masses.] [No thyromegaly.] [No JVD.] Chest: [Symmetrical chest expansion fine crackles at the bases no rhonchi and no wheezes Cardiac Exam: [Normal S1 and S2, no S3 gallop, no murmur.] Abdomen: [Soft, nontender, no megaly, no rebound, no guarding, normal bowel sounds.] Extremities: [No clubbing, no edema, no cyanosis.] Neurological Exam: [No focal neurologic deficit.] Alert and oriented 3. Psychiatric: Normal mood affect and normal mental status examination. Skin: No rashes - Labs CBC & Chem 7: 06/01/23 04:53 06/01/23 04:53 Labs: Abnormal Lab Results - Last 24 Hours (Table) 06/01/23 Range/Units 04:53 BUN 18 H (7-17) mg/dL Glucose 70 L (74-99) mg/dL Microbiology - Last 24 Hours (Table) 05/31/23 00:01 Gram Stain - Preliminary Sputum Assessment and Plan Assessment: Impression: Multivessel coronary artery disease, s/p PTCA diagonal 1 with a 2.5 x 12 balloon, PCI left main into LAD with overlapping 4.0 x 18mm and 4.0 x 15mm Xience MARSHA, post dilated with a 4.0 NC balloon V. fib cardiac arrest 2, with successful resuscitation and a limited downtime, patient required intubation and mechanical ventilation for this event, however she was extubated successfully on 05/31/2023 Hypotension, requiring minimal vasopressor support, exact etiology is not clear, possibly cardiogenic in nature considering the clinical history Acute diastolic congestive heart failure as noted on chest x-ray today, patient has preserved LV function based on the echocardiogram, Elevated troponins, following PCI/stenting and cardiac arrest Leukocytosis, likely reactive Mild transaminitisHistory of hypertension History of hyperlipidemia Obesity, with a BMI of 32.7 kg/m Chronic ongoing tobacco dependence Recommendation: Continue present supportive care measures Gentle diuresis patient was given 1 dose of Lasix only Cut down her IV fluid to KVO reviewed the results of her echocardiogram And consider transferring the patient to a monitor bed on selective Resume home meds We'll continue to follow Time with Patient: Less than 30
--- NOTE | 2023-06-01 15:48 | P.PN ---
Subjective HISTORY OF PRESENTING ILLNESS Patient is pleasant 72-year-old female with history of not seen doctor's office in, tobacco abuse, hyperlipidemia with arthritis being evaluated for hip surgery. She underwent diagnostic heart catheterization yesterday secondary to abnormal stress test which showed a CT of the circumflex however additional left main as well as LAD and diagonal stenosis. Therefore she underwent iFR of the diagonal and LAD branch which were abnormal. She had difficulty lying flat on the table with extreme hip pain despite increased amounts of Versed and fentanyl. Therefore anesthesia was called with need for increased sedation. With ballooning and stenting she did have V. fib arrest requiring cardioversion and then had recurrent V. fib when taking final pictures with additional hypotensive episodes and therefore required stenting of left main and LAD. She was intubated and sedated and transferred to ICU. Her initial chest x-ray did show complete opacification of the left lung possibly related to mucous plugging or placement of ET tube however this had resolved overnight. She was extubated this morning and denies any chest pain or pressure. She did have elevated troponins up to 27. She currently denies any chest pain or pressure or shortness breath. Blood pressure is borderline in the 110s to 120s systolic. 06/01 Patient seen and examined. Patient denies any chest pain or pressure. She is having worsening the left hip pain and compared to before her surgery. Echo shows left ventricular EF 50-55% PHYSICAL EXAMINATION Vital signs reviewed. CONSTITUTIONAL: No apparent distress. HEENT: Head is normocephalic. Pupils are equal, round. Sclerae anicteric. Mucous membranes of the mouth are moist. No JVD. No carotid bruit. CHEST EXAMINATION: Lungs are clear to auscultation. No chest wall tenderness is noted on palpation or with deep breathing. HEART EXAMINATION: Regular rate and rhythm. S1, S2 heard. No murmurs, gallops or rub. ABDOMEN: Soft, nontender. Positive bowel sounds. EXTREMITIES: 2+ peripheral pulses, no lower extremity edema and no calf tenderness. NEUROLOGIC EXAMINATION: Patient is awake, alert and oriented x3. ASSESSMENT 1. CAD status post PCI of left main into LAD and balloon angioplasty diagonal branch, 05/30/23 2. Non-STEMI, likely related to angioplasty plus or minus hypoxia 3. Acute on chronic respiratory failure component of heart failure 4. Acute on chronic diastolic heart failure 5. Status post V. fib arrest 2 in the [facility] [employer] [facility] related to angioplasty 6. Tobacco abuse 7. Hypotension previously on vasopressors may be related to sedation PLAN: Patient stable for transfer from the ICU. Appears stable from cardiac standpoint status post PCI. Continue with aspirin and Plavix. Unfortunately she is having worsened hip pain and await x-ray. Patient may need rehab, therapy on discharge. Objective - Vital Signs Vital signs: Vital Signs Temp 98.7 F 06/01/23 12:00 Pulse 68 06/01/23 15:00 Resp 21 06/01/23 15:00 BP 99/52 06/01/23 15:00 Pulse Ox 94 L 06/01/23 15:00 FiO2 40 05/31/23 09:15 Intake & Output 05/31/23 06/01/23 06/01/23 18:59 06:59 18:59 Intake Total 1180.564 100 670 Output Total 530 500 550 Balance 650.564 -400 120 Weight 88.8 kg 89.4 kg Intake: IV 630 270 Sodium Chloride 0.9% 1, 630 270 000 ml @ 10 mls/hr IV . Q24H [facility] Rx#:[id number] Intake, IV Titration 50.564 Amount propofoL 1,000 mg In 50.564 Empty Bag 1 bag @ 15 MCG/ KG/MIN 8.019 mls/hr IV . [id number] [facility]EE[facility] Rx#:[id number] Oral 500 100 400 Output: Urine 530 500 550 Other: Voiding Method Indwelling Catheter External Catheter # Voids 0 - Labs CBC & Chem 7: 06/01/23 04:53 06/01/23 04:53 Labs: Abnormal Lab Results - Last 24 Hours (Table) 06/01/23 Range/Units 04:53 BUN 18 H (7-17) mg/dL Glucose 70 L (74-99) mg/dL Microbiology - Last 24 Hours (Table) 05/31/23 00:01 Gram Stain - Preliminary Sputum
--- NOTE | 2023-06-01 17:53 | XR ---
EXAMINATION TYPE: XR Hip Bilateral and AP pelvis DATE OF EXAM: 06/01/2023 COMPARISON: None HISTORY: Limited range of motion TECHNIQUE: Bilateral hips examined in 2 projections each FINDINGS: There is loss of joint spaces at the bilateral hips. Early femoral head deformity may be pr esent. Acetabular spurring is present. No acute fractures are evident. IMPRESSION: 1. Moderate to early advanced degenerative changes bilateral hips
[2023-06-01] MEDS: FUROSEMIDE 10 MG/ML 2 ML VIAL IV SCH (18:09)
[2023-06-01] MEDS: NOREPINEPHRINE 4 MG in SODIUM CHLORIDE 0.9% 250 ML IV SCH (18:10)
[2023-06-02] MEDS: HEPARIN SODIUM,PORCINE 5,000 UNIT/ML 1 ML VIAL SQ SCH ×3 (00:25→17:01)
[2023-06-02] MEDS: HYDROcodone/APAP 5-325MG 1 EACH TAB PO PRN ×5 (03:27→22:14)
[2023-06-02] MEDS: SODIUM CHLORIDE 0.9% 1,000 ML IV SCH (04:35)
--- NOTE | 2023-06-02 08:13 | XR ---
EXAMINATION TYPE: XR chest 1V portable DATE OF EXAM: 06/02/2023 COMPARISON: 06/01/2023 HISTORY: Pneumonia TECHNIQUE: Single frontal view of the chest is obtained. FINDINGS: Interval improvement in interstitial. Background COPD and basilar atelectasis. Aorta is ec tatic and atherosclerotic changes. Degenerative changes spine. No pneumothorax. IMPRESSION: Interval improving interstitial pattern likely on the basis of resolving vascular conges tion
[2023-06-02 08:28] LABS: African American GFR (CKD) >90 (>60 ml/min/1.73 sqM); Anion Gap 10 mmol/L; Blood Urea Nitrogen 17 mg/dL (7-17); Carbon Dioxide 26 mmol/L (22-30); Chloride 102 mmol/L (98-107); Glucose 109 mg/dL (74-99); Non-African American GFR(CKD) >90 (>60 ml/min/1.73 sqM); Potassium 3.9 mmol/L (3.5-5.1); Sodium 138 mmol/L (137-145)
[2023-06-02] MEDS: ATORVASTATIN 80 MG TAB PO SCH (09:25)
[2023-06-02] MEDS: PANTOPRAZOLE 40 MG/10 ML VIAL IVP SCH (09:25)
[2023-06-02] MEDS: FUROSEMIDE 10 MG/ML 2 ML VIAL IV SCH (09:25)
[2023-06-02] MEDS: METOPROLOL SUCCINATE (ER) 25 MG TAB.ER.24H PO SCH (09:25)
[2023-06-02] MEDS: CLOPIDOGREL 75 MG TAB PO SCH (09:26)
[2023-06-02] MEDS: ALPRAZolam 0.5 MG TAB PO PRN (10:36)
--- NOTE | 2023-06-02 13:28 | P.PN ---
Subjective Progress Note Date: 06/02/23 Principal diagnosis: Ventricular fibrillation cardiac arrest I am seeing this patient in consultation today 05/31/2023 after the patient underwent successful stenting of the left main to LAD 2. During the procedure, the patient did have a V. fib cardiac arrest 2, was successfully resuscitated with a limited downtime. Patient was intubated in the Retail Aide, and transferred to the intensive care unit in critical condition. Patient is a 72-year-old white female with past medical history significant for hypertension, hyperlipidemia, and current tobacco smoker. Patient was undergoing cardiac clearance for a potential procedure, she was found to have a abnormal nuclear s tress test with reversible ischemia of the inferolateral wall. Patient was brought in for an elective heart catheterization yesterday, which showed significant multivessel coronary artery disease. Two stents were placed within the left main to the LAD. During the procedure, the patient did have a V. fib cardiac arrest 2, and was successfully resuscitated with a limited downtime. Patient was intubated by FENCE MACHINE OPERATOR, and transferred to the intensive care unit. Patient is currently intubated mechanical ventilator. Post-intubation chest x- ray shows the endotracheal tube approximately 3.4 cm above the sachin. Orogastric tube traverses below the diaphragm. The left hemithorax is completely opacified, possible mucous plug, obstruction/atelectasis or even possible pleural effusion. Lung sounds have equal aeration. Peak pressures are 26 and static airway pressures are 15. Most recent ABG shows pH of 7.35, pCO2 39, pO2 of 134, this was done on FiO2 of 50%. Current ventilator settings are a ssist control, respiratory rate 18, tidal volume 450, FiO2 50%, PEEP of 5. Patient is sedated on propofol at 50 mcg/kg/m. She is breathing above set respiratory rate. Appears to be uncomfortable and is reaching for the endotracheal tube. She does not follow commands but will withdraw to painful s timuli. Blood pressure was marginal on arrival, and she was started on low-dose norepinephrine which is infusing at 0.03 mcg/kg/m. Normal saline is infusing at 90 ML's per hour. CBC following the procedure the WBC count of 13.7, hemoglobin 14.1, hematocrit 43.4, platelets 196. Most recent CMP shows a sodium 138, potassium 4.2, chloride 108, serum bicarb 18, BUN 18, creatinine 0.43, glucose 101. LFTs mildly elevated. Troponins are elevated and trending up, most recent 16.5 following the patient's heart catheterization, PCI/stenting, and V. fib arrest. Patient will be monitored in the intensive care unit. Patient reevaluated today on 06/01/2023, patient was extubated yesterday to a nasal cannula, and she remains extubated. Patient is sitting at a bedside chair, not in any distress, apparently she had issues with low blood pressure yesterday, patient was given fluid yesterday, and her IV fluid is running at 90 mL per hour. Chest x-ray today is showing mild interstitial edema as I recommended cutting down her IV fluid to KVO, and 20 mg of Lasix was given IV push. Patient is on 3 L nasal cannula, not in distress. CBC is relatively normal, basic metabolic profile is normal, renal profile is normal. Echocardiogram showed good LV function, relatively normal right-sided pressures, aortic sclerosis but no stenosis. Patient did undergo PCI of the left main into LAD and balloon angioplasty of diagonal branch on 05/30/2023 Reevaluated today on 06/02/2023, patient is now on the medical floor, doing great, no cough no wheezing no shortness of breath, patient has mostly some back pain. But no active pulmonary issues. Patient received 1 dose of Lasix yesterday, and her chest x-ray showed significant improvement in her interstitial edema this is likely on the basis of resolving vascular congestion/pulmonary edema. We'll transition Lasix today to oral at 20 mg daily. Patient is now on Plavix, she is also on aspirin, and statins Cardiology to address possible discharge planning on this patient once they believe she is ready to be discharged home considering the patient had recent cardiac event as noted earlier including ventricular fibrillation cardiac arrest, and she had PTCA diagonal 1, PCI of left main into LAD Objective - Vital Signs Vital signs: Vital Signs Temp 97.7 F 06/02/23 12:00 Pulse 60 06/02/23 12:00 Resp 16 06/02/23 12:00 BP 134/77 06/02/23 12:00 Pulse Ox 99 06/02/23 12:00 FiO2 40 05/31/23 09:15 Intake & Output 06/01/23 06/02/23 06/02/23 18:59 06:59 18:59 Intake Total 670 360 Output Total 550 Balance 120 360 Weight 89.4 kg 89.4 kg Intake: IV 270 Sodium Chloride 0.9% 1, 270 000 ml @ 10 mls/hr IV . Q24H [facility] Rx#:[id number] Oral 400 360 Output: Urine 550 Other: Voiding Method Bedside Commode Toilet Toilet # Voids 0 1 2 - Exam Physical Exam: Revealed 72-year-old female in no distress, on room air and O2 sats is 99% Head: Atraumatic, normocephalic HEENT:[Neck is supple.] [No neck masses.] [No thyromegaly.] [No JVD.] Chest: [Symmetrical chest expansion . Throughout, no crackles or rhonchi or wheezes Cardiac Exam: [Normal S1 and S2, no S3 gallop, no murmur.] Abdomen: [Soft, nontender, no megaly, no rebound, no guarding, normal bowel sounds.] Extremities: [No clubbing, no edema, no cyanosis.] Neurological Exam: [No focal neurologic deficit.] Alert and oriented 3. Psychiatric: Normal mood affect and normal mental status examination. Skin: No rashes - Labs CBC & Chem 7: 06/01/23 04:53 06/02/23 07:46 Labs: Abnormal Lab Results - Last 24 Hours (Table) 06/02/23 Range/Units 07:46 Creatinine 0.50 L (0.52-1.04) mg/dL Glucose 109 H (74-99) mg/dL Microbiology - Last 24 Hours (Table) 05/31/23 00:01 Gram Stain - Final Sputum Sputum Culture - Final Assessment and Plan Assessment: Impression: Multivessel coronary artery disease, s/p PTCA diagonal 1 with a 2.5 x 12 balloon, PCI left main into LAD with overlapping 4.0 x 18mm and 4.0 x 15mm Xience MARSHA, post dilated with a 4.0 NC balloon V. fib cardiac arrest 2, with successful resuscitation and a limited downtime, patient required intubation and mechanical ventilation for this event, however she was extubated successfully on 05/31/2023 Hypotension, requiring minimal vasopressor support, exact etiology is not clear, possibly cardiogenic in nature considering the clinical history Acute diastolic congestive heart failure as noted on chest x-ray today, patient has preserved LV function based on the echocardiogram, Elevated troponins, following PCI/stenting and cardiac arrest Leukocytosis, likely reactive Mild transaminitisHistory of hypertension History of hyperlipidemia Obesity, with a BMI of 32.7 kg/m Chronic ongoing tobacco dependence Recommendation: Discontinue IV Lasix and transitioned to oral Lasix 20 mg daily for now. Continue present supportive care measures Chest x-ray today showed complete resolution of her interstitial edema Continue IV fluid to KVO Consider discharge planning once the patient is cleared by cardiology Continue aspirin statins and Plavix We'll continue to follow Time with Patient: Less than 30
--- NOTE | 2023-06-02 14:13 | P.PN ---
Subjective HISTORY OF PRESENT ILLNESS: Patient is pleasant 72-year-old female with history of not seen doctor's office in, tobacco abuse, hyperlipidemia with arthritis being evaluated for hip surgery. She underwent diagnostic heart catheterization yesterday secondary to abnormal stress test which showed a CT of the circumflex however additional left main as well as LAD and diagonal stenosis. Therefore she underwent iFR of the diagonal and LAD branch which were abnormal. She had difficulty lying flat on the table with extreme hip pain despite increased amounts of Versed and fentanyl. Therefore anesthesia was called with need for increased sedation. With ballooning and stenting she did have V. fib arrest requiring cardioversion and then had recurrent V. fib when taking final pictures with additional hypotensive episodes and therefore required stenting of left main and LAD. She was intubated and sedated and transferred to ICU. Her initial chest x-ray did show complete opacification of the left lung possibly related to mucous plugging or placement of ET tube however this had resolved overnight. She was extubated this morning and denies any chest pain or pressure. She did have elevated troponins up to 27. She currently denies any chest pain or pressure or shortness breath. Blood pressure is borderline in the 110s to 120s systolic. 06/01 Patient seen and examined. Patient denies any chest pain or pressure. She is having worsening the left hip pain and compared to before her surgery. Echo shows left ventricular EF 50-55% 06/02/2023 Patient seen and examined this more at the bedside. She denies chest pain or pressure. She denies shortness of breath. She continues to have discomfort in the hips. Hip x-ray revealed moderate to early advanced degenerative changes of bilateral hips. PHYSICAL EXAM: VITAL SIGNS: Reviewed. GENERAL: Well-developed in no acute distress. NECK: Supple. No JVD or thyromegaly LUNGS: Respirations even and unlabored. Lungs essentially clear to auscultation bilaterally. HEART: Regular rate and rhythm. S1 and S2 heard. EXTREMITIES: Normal range of motion. No clubbing or cyanosis. Peripheral pulses intact. No lower extremity edema ASSESSMENT: 1. CAD status post PCI of left main into LAD and balloon angioplasty diagonal branch, 05/30/23 2. Non-STEMI, likely related to angioplasty plus or minus hypoxia 3. Acute on chronic respiratory failure component of heart failure 4. Acute on chronic diastolic heart failure 5. Status post V. fib arrest 2 in the Sign Board Erector related to angioplasty 6. Tobacco abuse 7. Hypotension previously on vasopressors may be related to sedation PLAN: Continue current cardiac medications Anticipate discharge to subacute rehab tomorrow Nurse practitioner note has been reviewed by physician. Signing provider agrees with the documented findings, assessment, and plan of care. Objective - Vital Signs Vital signs: Vital Signs Temp 97.7 F 06/02/23 04:00 Pulse 73 06/02/23 04:00 Resp 16 06/02/23 04:00 BP 172/79 06/02/23 04:00 Pulse Ox 96 06/02/23 08:29 FiO2 40 05/31/23 09:15 Intake & Output 06/01/23 06/02/23 06/02/23 18:59 06:59 18:59 Intake Total 670 Output Total 550 Balance 120 Weight 89.4 kg Intake: IV 270 Sodium Chloride 0.9% 1, 270 000 ml @ 10 mls/hr IV . Q24H [facility] Rx#:[id number] Oral 400 Output: Urine 550 Other: Voiding Method Bedside Commode Toilet # Voids 0 1 - Labs CBC & Chem 7: 06/01/23 04:53 06/02/23 07:46 Labs: Abnormal Lab Results - Last 24 Hours (Table) 06/02/23 Range/Units 07:46 Creatinine 0.50 L (0.52-1.04) mg/dL Glucose 109 H (74-99) mg/dL Microbiology - Last 24 Hours (Table) 05/31/23 00:01 Gram Stain - Final Sputum Sputum Culture - Final
--- NOTE | 2023-06-02 15:08 | P.PN ---
Subjective Progress Note Date: 06/02/23 72 year old F with PMH of hypertension and dyslipidemia. Presented to [facility] for elective cardiac cath after being found to have a positive Lexiscan with reversible defect while undergoing cardiac clearance for elective hip surgery. Cardiac cath was complicated with 2 episodes of V. fib arrest requiring defibrillation and intubation. Cardiac cath: 40-50% left main, proximal LAD 60-70%, mid LAD 70%, diagonal 1 70% stenosis, circumflex 100% stenosis Underwent PCI to left main into LAD, PTCA diagonal 1. Transferred to the ICU for further management. 05/31 Patient was seen and examined. Extubated today. She complains of hip pain which is chronic in nature. She was on Levophed for a short period of time, now weaned off. Medications include ASA 81 mg PO QD, Lipitor 80 mg PO QD, Plavix 75 mg PO QD, Metoprolol 12.5 mg PO QD. NS running at 90 cc/hr. CBC unremarkable. ABG pH 7.37, pO2 146, pCO2 40. BMP Cl 108, bicarb 21, Cr 0.48. Repeat CXR today shows improved aeration of the left lung. 06/01 Patient was seen and examined. She reports intractable back pain. CBC unremarkable. BMP BUN 18, glu 70. CXR shows complete expansion of the left lung with some pulmonary vascular congestion. Started on Lasix 20 mg IV QD. Echocardiogram is pending. 06/02 Patient was seen and examined. Patient with intractable back pain. BMP Cr 0.5, glu 109. CXR shows improved pulmonary vascular congestion. Hip XR moderate DJD bilateral hips. BMP Cr 0.5. A1c 5.7. Lipid panel T. chol 134, LDL 58.1, HDL 46.5. Echo EF 55%. PT consult pending. General: non toxic, moderate distress, appears at stated age Derm: warm, dry Head: atraumatic, normocephalic, symmetric Eyes: EOMI, no lid lag, anicteric sclera Cardiovascular: S1S2 reg, no murmur Lungs: Decreased BS to auscultation bilaterally , no accessory muscle use Ext: no gross muscle atrophy, no edema, no contractures Neuro: no focal neuro deficits Psych: Alert, oriented, appropriate affect Based on my assessment of this patient, this patient meets a moderate complexity level of care. Patient has an acute diagnosis of V Fib arrest during cardiac cath status post PCI L main to LAD, PTCA diagonal 1 that poses a threat to life or bodily function. Intractable back pain: Likely due to DJD of the hips. Sees Dr. Broderick outpatient. She will likely need SNF on discharge. Consult pain management for severe uncontrolled pain. Acute hypoxic respiratory failure: Improving. Extubated 05/31. Lasix 20 mg IV QD started 06/01 and transitioned to PO 06/02. V. fib cardiac arrest: Likely related to hypoxia during cardiac cath. NSTEMI: Troponin 2.81, 16.5, 27.4. ASA, Lipitor, Plavix, Metoprolol as below. Severe CAD status post PCI to left main into LAD, PTCA diagonal 1: ASA 81 mg PO QD, Lipitor 80 mg PO QD, Plavix 75 mg PO QD, Metoprolol 12.5 mg PO QD. Echo, A1c, Lipid panel as above. Shock: Required short period of Levophed. None currently. Resolved: Left hemithorax opacification CODE STATUS: FULL CODE DVT Prophylaxis: Heparin SQ GI Prophylaxis: Protonix IV Designated medical POA if patient is not able to make medical decisions for themselves: I have reviewed the following benefits consultant notes: Cardiology, Pulmonology note. I have reviewed the results of the following tests: BMP. Echo. A1c. Lipid panel. I have ordered the following tests: I have discussed the care of this patient with the following independent historian: I have independently interpreted the following test below: CXR as above. I have discussed the management of this patient with the following physician: Objective - Vital Signs Vital signs: Vital Signs Temp 97.7 F 06/02/23 04:00 Pulse 73 06/02/23 04:00 Resp 16 06/02/23 04:00 BP 172/79 06/02/23 04:00 Pulse Ox 96 06/02/23 08:29 FiO2 40 05/31/23 09:15 Intake & Output 06/01/23 06/02/23 06/02/23 18:59 06:59 18:59 Intake Total 670 180 Output Total 550 Balance 120 180 Weight 89.4 kg Intake: IV 270 Sodium Chloride 0.9% 1, 270 000 ml @ 10 mls/hr IV . Q24H [facility] Rx#:[id number] Oral 400 180 Output: Urine 550 Other: Voiding Method Bedside Commode Toilet # Voids 0 1 - Labs CBC & Chem 7: 06/01/23 04:53 06/02/23 07:46 Labs: Abnormal Lab Results - Last 24 Hours (Table) 06/02/23 Range/Units 07:46 Creatinine 0.50 L (0.52-1.04) mg/dL Glucose 109 H (74-99) mg/dL Microbiology - Last 24 Hours (Table) 05/31/23 00:01 Gram Stain - Final Sputum Sputum Culture - Final
--- NOTE | 2023-06-02 16:10 | P.PAINPG ---
Objective - Vital Signs Vital signs: Vital Signs Temp 97.7 F 06/02/23 12:00 Pulse 60 06/02/23 12:00 Resp 16 06/02/23 12:00 BP 134/77 06/02/23 12:00 Pulse Ox 99 06/02/23 12:00 FiO2 40 05/31/23 09:15 Intake & Output 06/01/23 06/02/23 06/02/23 18:59 06:59 18:59 Intake Total 670 360 Output Total 550 800 Balance 120 -440 Weight 89.4 kg 89.4 kg Intake: IV 270 Sodium Chloride 0.9% 1, 270 000 ml @ 10 mls/hr IV . Q24H [facility] Rx#:[id number] Oral 400 360 Output: Urine 550 800 Other: Voiding Method Bedside Commode Toilet Toilet # Voids 0 1 2 - Labs CBC & Chem 7: 06/01/23 04:53 06/02/23 07:46 Labs: Abnormal Lab Results - Last 24 Hours (Table) 06/02/23 Range/Units 07:46 Creatinine 0.50 L (0.52-1.04) mg/dL Glucose 109 H (74-99) mg/dL Microbiology - Last 24 Hours (Table) 05/31/23 00:01 Gram Stain - Final Sputum Sputum Culture - Final PQRS Measure Charge Sheet Comment: HISTORY OF PRESENT ILLNESS: A 72 yr old inpatient female as a referral from Dr Kaur presents today w severe and chronic LBP secondary to DDD, spondylosis and facet arthropathy without myelopathy for evaluation. While undergoing a catheterization, she suffered one ventricular fibrillation, then one ventricular fibrillation arrest. She was defibrillated and intubated thereafter. She had multiple partially occluded coronary vessels including 100% of the circumflex artery. She was extubated 1 day ago and placed in the cardiac step down unit, wherefore she will be transferred possibly to [facility] for inpatient rehab. She presents today sitting upright in chair, using walker to stand from a sitting position. She is visited by a female resource analyst and feeling upbeat. Pt states pain level is provoked at 9 /10 in intensity, constant, localized in the mid to lower lumbar spine, predominantly axial, sharp in character w occasional shooting pain towards the BL hips. Pain is provoked by weight bearing activity. Pt uses a walker to ambulate. Pain is alleviated by medications (MS 4mg IVP q4h prn, [facility] 5/325mg q4h prn, ASA 81mg), repositioning and rest. She is not an interventional candidate due to ASA and Plavix use, and will need medical clearance to stop those medications for several days for interventional pain management. At this time, we can manage pain w oral pain medications and she may follow up in our clinic on an outpatient basis. PMH: L Hip DJD, OA, Hyperlipidemia, HTN, OAB, Cervical CA () PSH: Tonsillectomy SH: 25 pack/ yr tobacco use, Occasional ETOH use, No illicit drug use FH: Fa- Lung CA. Mo- CAD/ Coronary Aneurysm. Bro- MA/ Coronary Stent All: See list Meds: See list REVIEW OF ORGAN SYSTEMS: CONSTITUTIONAL: No fevers or chills. No recent weight loss. NEUROLOGICAL: + numbness and tingling along the distal extremities. No seizure disorders or headaches. MUSCULOSKELETAL: + pain PSYCHIATRIC: Denies current depression or suicidal thoughts. Physical Examinations : Constitutional : Cooperative , not in acute distress . Neurologic : Cranial nerve II to XII intact. No focal neurological deficits. Psychiatric : alert & oriented x 3. Matching mood & appropriate affect. Judgment & insight intact. Musculoskeletal : Cervical Spine Motor strength in the deltoid and biceps: Normal right side. Normal Left side Motor strength biceps and the wrist extensors: Normal right side . Normal left side Motor strength in the triceps muscle: Normal right side. Normal left side Deep tendon reflexes: Normal at the biceps. Normal at Brachioradialis. Normal at triceps Vertebral body tenderness to deep palpation over Cervical facet loading test: positive bilaterally Spurling test: positive bilaterally Neck distraction test: positive bilaterally Breanna sign: positive bilaterally Lumbar spine Motor strength lower extremities ,thigh and legs 5/5 Right side , 5/5 Left side Deep tendon reflexes : Normal Knee Jerk. Normal Ankle Jerk Vertebral body tenderness over Bobby Test positive Lumbar facet Loading Test: positive Right / positive Left Range of motion of the lumbar spine Flexion 30 degrees, extension 10 degrees Straight Leg Raise test: Left/ Right positive at degree Jagdish test: positive right / positive left. Severe tenderness over the Sacroiliac joint on the Right / Left sides Gaenslen test: positive bilaterally Seated flexion test: positive bilaterally. Sacral spine : Severe tenderness over the Sacroiliac joint: right side / left side Range of motion: Flexion of the lumbar spine <60 degrees Range of motion: Extension of the lumbar spine <20 degrees Gaenslen's Test positive Jagdish test: positive right side / left side Thigh Thrust Test Sacral Thrust Test Assessment/ Plan : Lumbar DDD, L Hip DJD Recommendation of medication management. [facility] 10/325mg #18 Use, side effects, adverse reactions, safe storage discussed. Pt may be transferred to [facility] rehab where her medications will be managed for her She may follow up at our [facility] on an outpatient basis. All questions answered. I have spent greater than 30 minutes on patient care today. Dr Lockett was available by phone for the evaluation of this patient. The time was used to review the medical records including relevant urine studies and Prescription history (MAPs), review of the available imaging, evaluation and examination of the patient, coordination of care with the medical staff and if applicable referring physicians, as well as creation of the medical record - Pain Location Bilateral Generalized Non-Pharmacological Interventions: Position/Reposition Pharmacological Interventions: Discuss Pain Med Options PQRS Narrative: Blood Pressure [Right Arm 134/77 Sitting] Blood Pressure [Left Arm 104/61 Sitting] Blood Pressure 133/67 Pain Intensity [Left Hip] 10 Pain Intensity [Bilateral 0 Generalized] Pain Intensity 5 Pain Scale Used [Left Hip] Numeric (1 - 10) Pain Scale Used [Bilateral Numeric (1 - 10) Generalized] Pain Scale Used Numeric (1 - 10) Scale Used Numeric (1 - 10) Home Medications: Ambulatory Orders Acetaminophen [Tylenol Extra Strength] 500 mg PO DIRECTED PRN 04/13/23 Ibuprofen [Motrin Ib] 600 mg PO Q8H PRN 05/25/23 Losartan [Cozaar] 25 mg PO DAILY 05/25/23 Magnesium 500 mg PO HS PRN 05/25/23 Metoprolol Succinate [Metoprolol Succinate ER] 12.5 mg PO DAILY 05/25/23 Rosuvastatin Calcium 40 mg PO DAILY 05/25/23 Docusate [Colace] 2 cap PO DAILY PRN 05/26/23 Aspirin 81 mg PO DIRECTED PRN 05/30/23 HYDROcodone/APAP 10-325MG [[facility] 10-325] 1 tab PO Q4HR PRN 3 Days #18 tab Controlled Substance Measures - Controlled Substance Measures Is patient prescribed a controlled substance at discharge?: Yes When asked, does pt state using other controlled substances?: No If prescribed controlled substance>3 days was MAPS reviewed?: Prescribed <3 Days
[2023-06-02 17:36] VITALS: RESP 17
[2023-06-03] MEDS: HEPARIN SODIUM,PORCINE 5,000 UNIT/ML 1 ML VIAL SQ SCH ×3 (00:02→16:05)
[2023-06-03] MEDS: MORPHINE SULFATE 4 MG/ML SYRINGE IVP PRN (00:02)
[2023-06-03] MEDS: HYDROcodone/APAP 5-325MG 1 EACH TAB PO PRN ×4 (01:08→16:10)
[2023-06-03] MEDS: SODIUM CHLORIDE 0.9% 1,000 ML IV SCH (04:10)
[2023-06-03] MEDS: METOPROLOL SUCCINATE (ER) 25 MG TAB.ER.24H PO SCH (08:23)
[2023-06-03] MEDS: PANTOPRAZOLE 40 MG/10 ML VIAL IVP SCH (08:23)
[2023-06-03] MEDS: CLOPIDOGREL 75 MG TAB PO SCH (08:23)
[2023-06-03] MEDS: ATORVASTATIN 80 MG TAB PO SCH (08:24)
[2023-06-03] MEDS ORDERED: FUROSEMIDE 20 MG TAB PO SCH (09:00)
[2023-06-03 11:54] VITALS: BP 135/62; PULSE 68; TEMP 98
--- NOTE | 2023-06-03 12:52 | P.DS ---
Providers Date of admission: 05/30/23 17:33 Attending physician: Juan Luis Pathak MD Consults: 05/30/23 17:29 Consult Physician Routine Consulting Provider: Marislo Wall Consult Reason/Comments: ICU Do you want consulting provider notified?: Already Contacted 05/30/23 20:22 Consult Physician Routine Consulting Provider: Mitch Farmer Consult Reason/Comments: Medical Management Do you want consulting provider notified?: Already Contacted 05/30/23 21:30 Consult Physician Routine Consulting Provider: [facility] Consult Reason/Comments: Post Interventional Patient Do you want consulting provider notified?: Already Contacted Primary care physician: Stated None Hospital Course: This is a 72-year-old female who underwent diagnostic heart catheterization secondary to abnormal stress test which showed a CT of the circumflex however additional left main as well as LAD and diagonal stenosis. She underwent iFR of the diagonal and LAD branch which were abnormal. The patient was having difficulty lying flat on the table with extreme hip pain despite increased amounts of Versed and fentanyl. Anesthesia was called for increased sedation needs. With ballooning and stenting she did have A. fib arrest requiring cardioversion and then had recurrent V. fib when taking final pictures with additional hypotensive episodes and therefore required stenting of the left main and LAD. She was intubated and sedated and transferred to the intensive care unit. She was successfully extubated to a nasal cannula. The patient has had no further episodes of chest pain or pressure. No further complaints of shortness of breath. She did have worsening left hip pain. X-rays were completed revealing moderate to early advance degenerative changes. She was seen pain management who recommended [place] 10. The patient was found not to be a candidate for intervention for her hip pain secondary to aspirin and Plavix use. The patient was deemed stable for discharge to subacute rehab today. Discharge diagnosis 1. CAD status post PCI of left main into LAD and balloon angioplasty diagonal branch, 05/30/23 2. Non-STEMI, likely related to angioplasty plus or minus hypoxia 3. Acute on chronic respiratory failure component of heart failure 4. Acute on chronic diastolic heart failure 5. Status post V. fib arrest 2 in the Delivery Consultant related to angioplasty 6. Tobacco abuse 7. Hypotension previously on vasopressors may be related to sedation Nurse practitioner note has been reviewed by physician. Signing provider agrees with the documented findings, assessment, and plan of care. Plan - Discharge Summary Discharge Rx Participant: Yes New Discharge Prescriptions: New HYDROcodone/APAP 10-325MG [[place] 10-325] 1 tab PO Q4HR PRN 3 Days #18 tab PRN Reason: Pain Furosemide [Lasix] 20 mg PO DAILY tab Atorvastatin [Lipitor] 80 mg PO DAILY tab Nitroglycerin Sl Tabs [Nitrostat] 0.4 mg SUBLINGUAL Q5M PRN tab PRN Reason: Chest Pain Clopidogrel [Plavix] 75 mg PO DAILY tab Metoprolol Succinate (ER) [Toprol XL] 12.5 mg PO DAILY tab Continue Docusate [Colace] 2 cap PO DAILY PRN PRN Reason: Constipation Aspirin 81 mg PO DIRECTED PRN PRN Reason: Pre-Op Acetaminophen [Tylenol Extra Strength] 500 mg PO DIRECTED PRN PRN Reason: Pain Magnesium 500 mg PO HS PRN PRN Reason: leg cramps Discontinued Metoprolol Succinate [Metoprolol Succinate ER] 12.5 mg PO DAILY Losartan [Cozaar] 25 mg PO DAILY Ibuprofen [Motrin Ib] 600 mg PO Q8H PRN PRN Reason: Pain Rosuvastatin Calcium 40 mg PO DAILY Discharge Medication List Acetaminophen [Tylenol Extra Strength] 500 mg PO DIRECTED PRN 04/13/23 [History] Magnesium 500 mg PO HS PRN 05/25/23 [History] Docusate [Colace] 2 cap PO DAILY PRN 05/26/23 [History] Aspirin 81 mg PO DIRECTED PRN 05/30/23 [History] Atorvastatin [Lipitor] 80 mg PO DAILY tab 06/03/23 [Rx] Clopidogrel [Plavix] 75 mg PO DAILY tab 06/03/23 [Rx] Furosemide [Lasix] 20 mg PO DAILY tab 06/03/23 [Rx] HYDROcodone/APAP 10-325MG [[place] 10-325] 1 tab PO Q4HR PRN 3 Days #18 tab 06/03/23 [Rx] Metoprolol Succinate (ER) [Toprol XL] 12.5 mg PO DAILY tab 06/03/23 [Rx] Nitroglycerin Sl Tabs [Nitrostat] 0.4 mg SUBLINGUAL Q5M PRN tab 06/03/23 [Rx] Follow up Appointment(s)/Referral(s): Lonnie Wood MD [STAFF PHYSICIAN] - 06/09/23 9:45 am Patient Instructions/Handouts: Moderate Sedation (DC), After Radial Heart Catheterization (GEN) Activity/Diet/Wound Care/Special Instructions: No driving for two days Ok to shower tomorrow but no baths, pools, lakes, doing dishes by hand for five days. Signs of infection IE: fever, rash, drainage from puncture site, swelling go to ER/doctor for immediate evaluation. Avoid using right wrist/hand to bend, flex, lift greater than 5 lbs for five days. For Heavy Bleeding of puncture site apply firm direct pressure and return to ER. Do not attempt to drive self. low sodium/low fat diet medications as directed by Cardiologists
--- NOTE | 2023-06-03 13:09 | P.PN ---
Subjective Progress Note Date: 06/03/23 72 year old F with PMH of hypertension and dyslipidemia. [facility]ed to [facility] for elective cardiac cath after being found to have a positive Lexiscan with reversible defect while undergoing cardiac clearance for elective hip surgery. Cardiac cath was complicated with 2 episodes of V. fib arrest requiring defibrillation and intubation. Cardiac cath: 40-50% left main, proximal LAD 60-70%, mid LAD 70%, diagonal 1 70% stenosis, circumflex 100% stenosis Underwent PCI to left main into LAD, PTCA diagonal 1. Transferred to the ICU for further management. 05/31 Patient was seen and examined. Extubated today. She complains of hip pain which is chronic in nature. She was on Levophed for a short period of time, now weaned off. Medications include ASA 81 mg PO QD, Lipitor 80 mg PO QD, Plavix 75 mg PO QD, Metoprolol 12.5 mg PO QD. NS running at 90 cc/hr. CBC unremarkable. ABG pH 7.37, pO2 146, pCO2 40. BMP Cl 108, bicarb 21, Cr 0.48. Repeat CXR today shows improved aeration of the left lung. 06/01 Patient was seen and examined. She reports intractable back pain. CBC unremarkable. BMP BUN 18, glu 70. CXR shows complete expansion of the left lung with some pulmonary vascular congestion. Started on Lasix 20 mg IV QD. Echocardiogram is pending. 06/02 Patient was seen and examined. Patient with intractable back pain. BMP Cr 0.5, glu 109. CXR shows improved pulmonary vascular congestion. Hip XR moderate DJD bilateral hips. BMP Cr 0.5. A1c 5.7. Lipid panel T. chol 134, LDL 58.1, HDL 46.5. Echo EF 55%. PT consult pending. 06/03 Patient was seen and examined. No acute events overnight. Plans for SNF today. Pain management will follow the patient after discharge. General: non toxic, moderate distress, appears at stated age Derm: warm, dry Head: atraumatic, normocephalic, symmetric Eyes: EOMI, no lid lag, anicteric sclera Cardiovascular: S1S2 reg, no murmur Lungs: Decreased BS to auscultation bilaterally , no accessory muscle use Ext: no gross muscle atrophy, no edema, no contractures Neuro: no focal neuro deficits Psych: Alert, oriented, appropriate affect Based on my assessment of this patient, this patient meets a moderate complexity level of care. Patient has an acute diagnosis of V Fib arrest during cardiac cath status post PCI L main to LAD, PTCA diagonal 1 that poses a threat to life or bodily function. Intractable back pain: Likely due to DJD of the hips. Sees Dr. Broderick outpatient. Plans for SNF today. Consult pain management for severe uncontrolled pain. Acute hypoxic respiratory failure: Improving. Extubated 05/31. Lasix 20 mg IV QD started 06/01 and transitioned to PO 06/02. V. fib cardiac arrest: Likely related to hypoxia during cardiac cath. NSTEMI: Troponin 2.81, 16.5, 27.4. ASA, Lipitor, Plavix, Metoprolol as below. Severe CAD status post PCI to left main into LAD, PTCA diagonal 1: ASA 81 mg PO QD, Lipitor 80 mg PO QD, Plavix 75 mg PO QD, Metoprolol 12.5 mg PO QD. Echo, A1c, Lipid panel as above. Shock: Required short period of Levophed. None currently. Resolved: Left hemithorax opacification CODE STATUS: FULL CODE DVT Prophylaxis: Heparin SQ GI Prophylaxis: Protonix IV Designated medical POA if patient is not able to make medical decisions for themselves: I have reviewed the following technical solutions consultant notes: Cardiology, Pulmonology note. I have reviewed the results of the following tests: I have ordered the following tests: I have discussed the care of this patient with the following independent historian: I have independently interpreted the following test below: I have discussed the management of this patient with the following physician: Objective - Vital Signs Vital signs: Vital Signs Temp 98.0 F 06/03/23 11:32 Pulse 68 06/03/23 11:32 Resp 17 06/03/23 11:32 BP 135/62 06/03/23 11:32 Pulse Ox 92 L 06/03/23 11:32 FiO2 40 05/31/23 09:15 Intake & Output 06/02/23 06/03/23 06/03/23 18:59 06:59 18:59 Intake Total 540 780 236 Output Total 800 300 Balance -260 480 236 Weight 89.4 kg 88.9 kg Intake: Oral 540 780 236 Output: Urine 800 300 Other: Voiding Method Toilet Toilet Toilet # Voids 2 1 - Labs CBC & Chem 7: 06/01/23 04:53 06/02/23 07:46
--- NOTE | 2023-06-03 14:13 | P.PN ---
Subjective Progress Note Date: 06/03/23 Principal diagnosis: Ventricular fibrillation cardiac arrest I am seeing this patient in consultation today 05/31/2023 after the patient underwent successful stenting of the left main to LAD 2. During the procedure, the patient did have a V. fib cardiac arrest 2, was successfully resuscitated with a limited downtime. Patient was intubated in the [facility], and transferred to the intensive care unit in critical condition. Patient is a 72-year-old white female with past medical history significant for hypertension, hyperlipidemia, and current tobacco smoker. Patient was undergoing cardiac clearance for a potential procedure, she was found to have a abnormal nuclear s tress test with reversible ischemia of the inferolateral wall. Patient was brought in for an elective heart catheterization yesterday, which showed significant multivessel coronary artery disease. Two stents were placed within the left main to the LAD. During the procedure, the patient did have a V. fib cardiac arrest 2, and was successfully resuscitated with a limited downtime. Patient was intubated by [facility], and transferred to the intensive care unit. Patient is currently intubated mechanical ventilator. Post-intubation chest x- ray shows the endotracheal tube approximately 3.4 cm above the sachin. Orogastric tube traverses below the diaphragm. The left hemithorax is completely opacified, possible mucous plug, obstruction/atelectasis or even possible pleural effusion. Lung sounds have equal aeration. Peak pressures are 26 and static airway pressures are 15. Most recent ABG shows pH of 7.35, pCO2 39, pO2 of 134, this was done on FiO2 of 50%. Current ventilator settings are a ssist control, respiratory rate 18, tidal volume 450, FiO2 50%, PEEP of 5. Patient is sedated on propofol at 50 mcg/kg/m. She is breathing above set respiratory rate. Appears to be uncomfortable and is reaching for the endotracheal tube. She does not follow commands but will withdraw to painful s timuli. Blood pressure was marginal on arrival, and she was started on low-dose norepinephrine which is infusing at 0.03 mcg/kg/m. Normal saline is infusing at 90 ML's per hour. CBC following the procedure the WBC count of 13.7, hemoglobin 14.1, hematocrit 43.4, platelets 196. Most recent CMP shows a sodium 138, potassium 4.2, chloride 108, serum bicarb 18, BUN 18, creatinine 0.43, glucose 101. LFTs mildly elevated. Troponins are elevated and trending up, most recent 16.5 following the patient's heart catheterization, PCI/stenting, and V. fib arrest. Patient will be monitored in the intensive care unit. Patient reevaluated today on 06/01/2023, patient was extubated yesterday to a nasal cannula, and she remains extubated. Patient is sitting at a bedside chair, not in any distress, apparently she had issues with low blood pressure yesterday, patient was given fluid yesterday, and her IV fluid is running at 90 mL per hour. Chest x-ray today is showing mild interstitial edema as I recommended cutting down her IV fluid to KVO, and 20 mg of Lasix was given IV push. Patient is on 3 L nasal cannula, not in distress. CBC is relatively normal, basic metabolic profile is normal, renal profile is normal. Echocardiogram showed good LV function, relatively normal right-sided pressures, aortic sclerosis but no stenosis. Patient did undergo PCI of the left main into LAD and balloon angioplasty of diagonal branch on 05/30/2023 Reevaluated today on 06/02/2023, patient is now on the medical floor, doing great, no cough no wheezing no shortness of breath, patient has mostly some back pain. But no active pulmonary issues. Patient received 1 dose of Lasix yesterday, and her chest x-ray showed significant improvement in her interstitial edema this is likely on the basis of resolving vascular congestion/pulmonary edema. We'll transition Lasix today to oral at 20 mg daily. Patient is now on Plavix, she is also on aspirin, and statins Cardiology to address possible discharge planning on this patient once they believe she is ready to be discharged home considering the patient had recent cardiac event as noted earlier including ventricular fibrillation cardiac arrest, and she had PTCA diagonal 1, PCI of left main into LAD Patient was reevaluated today on 06/03/2023, seems to be doing quite well, relatively asymptomatic. She has mostly symptoms of pain related to her osteoarthritis, pulmonary-erwin no cough no wheezing no shortness of breath, patient is being considered for discharge planning if cleared by cardiology Objective - Vital Signs Vital signs: Vital Signs Temp 98.0 F 06/03/23 11:32 Pulse 68 06/03/23 11:32 Resp 17 06/03/23 11:32 BP 135/62 06/03/23 11:32 Pulse Ox 92 L 06/03/23 11:32 FiO2 40 05/31/23 09:15 Intake & Output 06/02/23 06/03/23 06/03/23 18:59 06:59 18:59 Intake Total 540 780 236 Output Total 800 300 Balance -260 480 236 Weight 89.4 kg 88.9 kg Intake: Oral 540 780 236 Output: Urine 800 300 Other: Voiding Method Toilet Toilet Toilet # Voids 2 1 - Exam Physical Exam: Revealed 72-year-old female in no distress, sitting at a bedside chair, in no distress Head: Atraumatic, normocephalic HEENT:[Neck is supple.] [No neck masses.] [No thyromegaly.] [No JVD.] Chest: [Symmetrical chest expansion . Clear bilaterally no rhonchi and no wheezes Cardiac Exam: [Normal S1 and S2, no S3 gallop, no murmur.] Abdomen: [Soft, nontender, no megaly, no rebound, no guarding, normal bowel sounds.] Extremities: [No clubbing, no edema, no cyanosis.] Neurological Exam: [No focal neurologic deficit.] Alert and oriented 3. Psychiatric: Normal mood affect and normal mental status examination. Skin: No rashes - Labs CBC & Chem 7: 06/01/23 04:53 06/02/23 07:46 Assessment and Plan Assessment: Impression: Multivessel coronary artery disease, s/p PTCA diagonal 1 with a 2.5 x 12 balloon, PCI left main into LAD with overlapping 4.0 x 18mm and 4.0 x 15mm Xience MARSHA, post dilated with a 4.0 NC balloon V. fib cardiac arrest 2, with successful resuscitation and a limited downtime, patient required intubation and mechanical ventilation for this event, however she was extubated successfully on 05/31/2023 Hypotension, requiring minimal vasopressor support, exact etiology is not clear, possibly cardiogenic in nature considering the clinical history Acute diastolic congestive heart failure as noted on chest x-ray today, patient has preserved LV function based on the echocardiogram, Elevated troponins, following PCI/stenting and cardiac arrest Leukocytosis, likely reactive Mild transaminitisHistory of hypertension History of hyperlipidemia Obesity, with a BMI of 32.7 kg/m Chronic ongoing tobacco dependence Recommendation: Pulmonary-erwin the patient is doing great, We'll clear the patient for discharge if cleared by cardiology Will follow as needed Time with Patient: Less than 30
--- NOTE | 2023-06-06 20:25 | CDI ---
Documentation Clarification Form Date: 06/06/2023 08:03:37 PM From: Miriam Cobb Phone: Admit Date: 05/30/2023 05:33:00 PM Patient Name: Trish Rodriguez Visit Number: [id number] Discharge Date: 06/03/2023 04:21:00 PM ATTENTION: The Clinical Documentation Specialists (CDI) and [facility] Coding Staff appreciate your assistance in clarifying documentation. Please respond to the clarification below the line at the bottom and electronically sign. The CDI & [facility] Coding staff will review the response and follow-up if needed. Please note: Queries are made part of the Legal Health Record. If you have any questions, please contact the author of this message via ITS. Dr. Juan Luis Pathak Shock is documented per Cardiac Cath. Additional clarification regarding the type of shock is requested. Patient history/risk factors: 72yo F, CAD, HTN w ACDHF, HLD, ACHF, smoker Clinical Indicators: Vfibarrestx 2,likelyrelated toischemia, possibly related toCADvs hypoxia/ sedation; Cardiac cathwas complicated with 2 episodes ofV. fibarrest Hypotensionpreviously on vasopressors may be related to sedation Treatment: Levophed; defibrillationand intubation. Please clarify the type of shock, if known: [ X ] Cardiogenic Shock [ ] Traumatic Shock [ ] Hypotensive shock due to medication [ ] Other, please specify [ ] Unable to determine (Template Last Revised: August 2020) MTDD
== END 2023-06-03 16:21 | disposition short-term general hospital (02) | DRG 321 ==
LOC: CATHCVL 10:35 → 2SICU 16:42 → CATHCVL 17:25 → 2SICU 17:33 → 3SCARD 06-01 18:40
PROVIDERS: ADMIT Student in an Organized Health Care Education/Training Program; ATTEND Student in an Organized Health Care Education/Training Program
PROC: 3E033XZ Introduction of Vasopressor into Peripheral Vein, Percutaneous Approach (ICD-10-PCS; 2023-05-30)
PROC: 027035Z Dilation of Coronary Artery, One Artery with Two Drug-eluting Intraluminal Devices, Percutaneous Approach (ICD-10-PCS; principal; 2023-05-30 12:00)
PROC: 02C03Z7 Extirpation of Matter from Coronary Artery, One Artery, Orbital Atherectomy Technique, Percutaneous Approach (ICD-10-PCS; 2023-05-30 12:00)
PROC: B2111ZZ Fluoroscopy of Multiple Coronary Arteries using Low Osmolar Contrast (ICD-10-PCS; 2023-05-30 12:00)
PROC: 4A023N7 Measurement of Cardiac Sampling and Pressure, Left Heart, Percutaneous Approach (ICD-10-PCS; 2023-05-30 12:00)
PROC: 4A033BC Measurement of Arterial Pressure, Coronary, Percutaneous Approach (ICD-10-PCS; 2023-05-30 12:00)
PROC: B240ZZ3 Ultrasonography of Single Coronary Artery, Intravascular (ICD-10-PCS; 2023-05-30 12:00)
PROC: 5A2204Z Restoration of Cardiac Rhythm, Single (ICD-10-PCS; 2023-05-30 12:00)
PROC: 0D9670Z Drainage of Stomach with Drainage Device, Via Natural or Artificial Opening (ICD-10-PCS; 2023-05-31)
DX: I25.10 Atherosclerotic heart disease of native coronary artery without angina pectoris (principal); I21.A1 Myocardial infarction type 2; J96.21 Acute and chronic respiratory failure with hypoxia; I50.33 Acute on chronic diastolic (congestive) heart failure; I46.2 Cardiac arrest due to underlying cardiac condition; I49.01 Ventricular fibrillation; I11.0 Hypertensive heart disease with heart failure; I25.82 Chronic total occlusion of coronary artery; I48.91 Unspecified atrial fibrillation; I70.0 Atherosclerosis of aorta; E66.9 Obesity, unspecified; M51.36 Other intervertebral disc degeneration, lumbar region; G89.29 Other chronic pain; M54.50 Low back pain, unspecified; M47.819 Spondylosis without myelopathy or radiculopathy, site unspecified; E78.5 Hyperlipidemia, unspecified; F17.210 Nicotine dependence, cigarettes, uncomplicated; T42.75XA Adverse effect of unspecified antiepileptic and sedative-hypnotic drugs, initial encounter; M16.0 Bilateral primary osteoarthritis of hip; J98.4 Other disorders of lung; N32.81 Overactive bladder; R74.01 Elevation of levels of liver transaminase levels; D72.828 Other elevated white blood cell count; Z28.310 Unvaccinated for COVID-19; Z82.49 Family history of ischemic heart disease and other diseases of the circulatory system; Z68.32 Body mass index [BMI] 32.0-32.9, adult; Z85.41 Personal history of malignant neoplasm of cervix uteri; Z79.899 Other long term (current) drug therapy
CPT/HCPCS: 36600; 71045; 73521; 76604; 76937; 80048; 80053; 80061; 82805; 83036; 83735; 84484; 85025; 87070; 87205; 92921; 92933; 92978; 93306; 93458; 93799; 94002; 94003; 94640; 94760

== ENCOUNTER → 2023-05-30 | Outpatient (CLI) | payer MEDICARE, OTHER ==
[2023-05-30 16:00] LABS: Chol/HDL Ratio 2.53 Ratio; LDL Cholesterol,Calculated 77.3 mg/dL (0.0-131.0); VLDL Calculation 18.24 mg/dL (5.00-40.00)
== END | disposition home or self-care (01) ==
LOC: LABWHC1 09:41
PROVIDERS: ATTEND Internal Medicine Clinical Cardiac Electrophysiology
DX: E78.5 Hyperlipidemia, unspecified (principal)
CPT/HCPCS: 36415; 80061

== ENCOUNTER → 2023-08-11 | Outpatient (CLI) | payer MEDICARE, OTHER ==
[2023-08-11 14:23] LABS: African American GFR (CKD) >90 (>60 ml/min/1.73 sqM); Blood Urea Nitrogen 24 mg/dL (7-17); Non-African American GFR(CKD) 89 (>60 ml/min/1.73 sqM)
--- NOTE | 2023-08-12 10:20 | CT ---
EXAMINATION TYPE: CT angio abd aorta w/Runoff CT DLP: 2642.70 mGycm, Automated exposure control for dose reduction was used. DATE OF EXAM: 08/11/2023 3:33 PM COMPARISON: None CLINICAL INDICATION:Female, 72 years old with history of I73.9 PERIPHERAL VASCULAR DISEASE, UNSPECIFI ED; PHH, Peripheral vascular disease, LT extremity worse according to patient. TECHNIQUE: Multiple thin slice sub-millimeter images were obtained after administration of contrast. 3-D reconstructed images and maximum intensity projection images were obtained. CT angio abd aorta w /Runoff CT Contrast: Contrast used:100 mL of Isovue 370 with IV Contrast, Oral contrast used: None FINDINGS: CTA Abdomen and pelvis: Visualized portions of the ascending thoracic aorta are patent. The abdominal aorta demonstrates scattered calcified noncalcified plaque. There is at least 70-90% stenosis of the origin of the celiac axis secondary to calcified and noncalcified plaque series 17 image 91. The sup ine. Mesenteric artery is patent. Calcified and noncalcified plaque at the origins of the renal arter ies with at least 25-50% stenosis on the right and less than 25% stenosis on the left. Inferior mesen teric artery is patent. No evidence for aortic dissection or intramural hematoma on noncontrast imagi ng. No evidence for abdominal aortic aneurysm. 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 The common iliac arteries a re patent bilaterally. The left external iliac arteries patent. The right external iliac artery is oc cluded series 6 image 138. There is reconstitution at the common femoral artery. CTA Lower extremities: Right: The common femoral artery is patent. The superficial femoral arteries are occluded extending f rom its origin with reconstitution at the popliteal artery. There is diminutive appearance of the ves sels of the leg. The anterior tibial artery crosses the ankle the posterior tibial artery is poorly v isualized. Left: The common femoral artery is patent. Superficial femoral arteries is occluded extending from it s origin with reconstitution just [id number]. Additional site of high-grade stenosis of at least 50-70% series 17 image 22. The popliteal artery is patent. Anterior and posterior tibial arteries as well as the peroneal artery are patent. Anterior and posterior tibial arteries cross the ankle. LOWER CHEST: Right lower lobe 4 and 6 mm pulmonary nodules. The heart is mildly enlarged for size. Th ere is mitral valve annular calcifications and aortic valve coronary calcifications. No evidence of f ocal consolidation, pneumothorax or pleural effusion. LIVER: Unremarkable GALLBLADDER AND BILE DUCTS: Unremarkable. PANCREAS: Unremarkable. SPLEEN: Unremarkable. ADRENAL GLANDS: Unremarkable. KIDNEYS AND URETERS: No evidence of hydronephrosis or renal calculus. The ureters are unremarkable. PELVIS BLADDER: Unremarkable REPRODUCTIVE: Coarse calcifications within the uterus compatible fibroid change. ABDOMEN & PELVIS STOMACH AND BOWEL: No evidence of bowel obstruction. Scattered colonic diverticula. PERITONEUM: No evidence of pneumoperitoneum or free fluid. MUSCULOSKELETAL: Moderate disc degeneration changes are present throughout the thoracolumbar spine. LYMPH NODES: No gross evidence for lymphadenopathy. SOFT TISSUE/ABDOMINAL WALL: Unremarkable IMPRESSION Right: * Occlusion of the right external iliac artery extending just past its origin with reconstitution at the common femoral artery. * Occlusion of the right superficial femoral artery from origin to the popliteal artery. 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 * Anterior tibial artery crosses the ankle, the posterior tibial artery is diminutive and does not f illing across the ankle. Left: * Occlusion of the left superficial femoral artery from origin to the just above the knee. Additiona l 50-70% stenosis in the remaining portion just above the popliteal artery. * The anterior and posterior tibial arteries cross the ankle. 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 * 25-50% stenosis of the right renal artery at its origin.
== END | disposition home or self-care (01) ==
LOC: RADCTMAIN 13:14
PROVIDERS: ATTEND Internal Medicine
DX: I70.1 Atherosclerosis of renal artery (principal); I77.4 Celiac artery compression syndrome; I74.5 Embolism and thrombosis of iliac artery; I72.3 Aneurysm of iliac artery; I70.203 Unspecified atherosclerosis of native arteries of extremities, bilateral legs
CPT/HCPCS: 82565; 84520; 75635; 36415; Q9967

== ENCOUNTER → 2023-12-20 | Outpatient (CLI) | payer MEDICARE, OTHER | END | disposition home or self-care (01) | LOC: LABPAT 12:53 | PROVIDERS: ATTEND Orthopaedic Surgery | DX: Z01.812 Encounter for preprocedural laboratory examination (principal); M16.12 Unilateral primary osteoarthritis, left hip; Z22.322 Carrier or suspected carrier of Methicillin resistant Staphylococcus aureus | CPT/HCPCS: 36415; 86850; 86900; 86901; 87070 ==

== ENCOUNTER 2023-12-23 07:40 | Inpatient (IN) | payer MEDICARE, OTHER ==
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
[~2023-12-23 07:40] MED LIST changes: +ACETAMINOPHEN TAB 500 MG TAB PO PRN; -ALPRAZolam 0.25 MG TAB PO PRN; -ASPIRIN 325 MG TAB PO STA; -ATORVASTATIN 80 MG TAB PO STA; -HEPARIN SODIUM,PORCINE (1 ML) 2,500 UNIT in SODIUM CHLORIDE 0.9% 250 ML IRRIGATION PRN; -HEPARIN SODIUM,PORCINE 10,000 UNIT in SODIUM CHLORIDE 0.9% 1,000 ML IRRIGATION PRN; +LIDOCAINE 1% (10MG/ML) FOR IV START INTRADERMA PRN; -NITROGLYCERIN SL TABS 0.4 MG TAB SUBLINGUAL PRN; -SODIUM CHLORIDE 0.9% 1,000 ML IV ONE; +TRANEXAMIC 1,000 MG/100ML-NACL 1,000 MG in SALINE 1 100ML.BAG IVPB PRN
[2023-12-23 08:36] LABS: Glucose,Whole Blood 101 mg/dL (70-110)
[2023-12-23] MEDS: LACTATED RINGERS 1,000 ML IV SCH (08:37)
[2023-12-23] MEDS: IV FLUID CONTINUATION 1,000 ML IV ONE ×2 (08:42→11:00)
[2023-12-23] MEDS: DEXAMETHASONE SOD PHOSPHATE 4 MG/ML 1 ML VIAL IV ONE (09:01)
[2023-12-23] MEDS: MELOXICAM 7.5 MG TAB PO PRN (09:01)
[2023-12-23] MEDS: MIDAZOLAM 2 MG/2 ML VIAL IV PRN (09:26)
--- NOTE | 2023-12-23 09:42 | P.ANPRN ---
Procedure Note - Anesthesia - Nerve Block Performed Left Eusebio Single Time Out Performed: Yes ([id number]) Date of Procedure: 12/23/23 Procedure Start Time: 09:15 Procedure Stop Time: 09:20 Location of Patient: PreOp Indication: Acute Post-Operative Pain, Requested by Surgeon Sedation Type: Sedate with meaningful contact maintained Preparation: Sterile Prep, Sterile Dressing Position: Supine Catheter: None Needle Types: Pajunk Needle Gauge: 21 Ultrasound used to visualize needle placement: Yes Ultrasound used to observe medication spread: Yes Injectate: 0.5% Ropivacaine (see comment for volume) (20 ml) Narrative: one attempt Blood Aspirated: No Pain Paresthesia on Injection Noted: No Resistance on Injection: Normal Image Stored and Saved: Yes Events: Uneventful and Well Tolerated
[2023-12-23] MEDS ORDERED: HYDROmorphone (PF) 1 MG/ML ONE (09:48)
[2023-12-23] MEDS ORDERED: fentaNYL (PF) 50 MCG/ML 2 ML AMP ONE (09:48)
[2023-12-23] MEDS ORDERED: LIDOCAINE 1% INJ 10MG/ML (20 ML MDV) ONE (09:48)
[2023-12-23] MEDS ORDERED: TRANEXAMIC 1,000 MG/100ML-NACL PREMIX BAG ONE (09:48)
[2023-12-23] MEDS ORDERED: SUCCINYLCHOLINE CHLORIDE 200 MG/10 ML VIAL IV ONE (09:48)
[2023-12-23] MEDS ORDERED: hydrALAZINE HCL 20 MG/ML 1 ML VIAL ONE (09:48)
[2023-12-23] MEDS ORDERED: ROPIVACAINE 5 MG/ML 30 ML VIAL ONE (09:48)
[2023-12-23] MEDS ORDERED: ROCURONIUM 10 MG/ML (5 ML VIAL) IV ONE (09:48)
[2023-12-23] MEDS ORDERED: GLYCOPYRROLATE 0.2 MG/ML 2 ML VIAL ONE (09:48)
[2023-12-23] MEDS ORDERED: MIDAZOLAM 2 MG/2 ML VIAL ONE (09:48)
[2023-12-23] MEDS ORDERED: PROPOFOL 10 MG/ML 20 ML VIAL IV ONE (09:48)
[2023-12-23] MEDS ORDERED: NEOSTIGMINE 1 MG/ML 10 ML VIAL ONE (09:48)
[2023-12-23] MEDS: ceFAZolin 3,000 MG in SODIUM CHLORIDE 0.9% IRRIGATIO 3,000 ML IRRIGATION ONE (10:28)
[2023-12-23] MEDS ORDERED: NALOXONE 0.4 MG/ML 1 ML VIAL IV PRN (11:46)
[2023-12-23] MEDS ORDERED: MAGNESIUM HYDROXIDE 2,400 MG/30 ML CUP PO PRN (11:46)
[2023-12-23] MEDS ORDERED: HYDROmorphone 0.5 MG/0.5 ML SYRINGE IVP PRN (11:46)
[2023-12-23] MEDS ORDERED: oxyCODONE-APAP 5-325MG 1 EACH TAB PO PRN (11:49)
--- NOTE | 2023-12-23 11:59 | XR ---
EXAMINATION TYPE: XR Hip Limited LT DATE OF EXAM: 12/23/2023 COMPARISON: NONE HISTORY: Postop TECHNIQUE: One view submitted. FINDINGS: There is postsurgical change compatible hip replacement surgery. A large calcification the pelvis cou ld be related to a fibroid but is nonspecific. IMPRESSION: 1. Postoperative change.
--- NOTE | 2023-12-23 11:59 | FL ---
EXAMINATION TYPE: FL guidance operating room DATE OF EXAM: 12/23/2023 HISTORY: Fluoroscopy time Total dose area product (DAP) in uGy*m?, mGy*cm? (or similar): 2.3585 IMPRESSION: 1. Fluoroscopy time.
--- NOTE | 2023-12-23 12:06 | P.OP ---
Date of Procedure: 12/23/23 Preoperative Diagnosis: Left hip severe osteoarthrosis Postoperative Diagnosis: Same Procedure(s) Performed: Left total hip arthroplastypress-fitanterior approach Implants: Depuy Corail size 14-125 degreepress-fit collared femoral stem, 36+1.5 cobalt chrome femoral head, 56 mm [place] acetabular shell with neutral polyethylene liner. I did utilize a 6.5 x 30 mm cancellous screw. Anesthesia: RADHA, regional Surgeon: Bradley Broderick Health Unit Coordinator #1: Brian Hillman Estimated Blood Loss (ml): 100 Pathology: none sent Condition: stable Disposition: PACU Indications for Procedure: The patient is a 73-year-old female who presents with progressive left hip pain secondary to osteoarthrosis despite conservative measures. A discussion of the risks and benefits of operative intervention versus continued conservative measures was made with the patient. She opted to proceed with surgery. Operative risks include infection, neurovascular injury, development of blood clots, fracture, leg length discrepancy, possible instability, possible component loosening/failure and possible need for subsequent procedures was discussed. Informed consent was obtained. Operative Findings: As below Description of Procedure: The patient was brought to the operating room, and after induction of spinal anesthesia was placed supine on the Shelly table. Positioning was checked with fluoroscopy. The left hip was then prepped and draped in a normal fashion. A 12 cm incision was then made starting 2 fingerbreadths distal and 3 finger breaths posterior to the ASIS in line with the proximal femur. The skin was incised sharply. Subcutaneous tissues were divided sharply. Electrocautery was used for hemostasis. The fascia was split in line with skin incision. The interval between the sartorius and tensor fascia callum was then bluntly developed. The posterior fascia was opened with electrocautery. The lateral circumflex vessels were identified and cauterized prior to sectioning. A retractor was placed along the superior femoral neck as well as the anterior acetabular rim. A wide capsulotomy was performed. The neck cut was then made at a 45 angle to the shaft approximately 1 1/2 cm above the level of the lesser trochanter. The head was extracted. Attention was then paid towards preparing the acetabular. Anterior and posterior retractors were placed. The remaining capsular labral tissue sharply debrided clearly defining the acetabular margins. I began reaming with a 49 mm reamer taking care to initially medialize then reaming at 45 of abduction and 20 of anteversion. Sequential reaming is performed up to 53 mm. A trial 54 mm acetabular shell was inserted in the same orientation and was fully seated. There was good rim fit and stability. Positioning was checked with fluoroscopy. The final 54 mm acetabular shell was inserted again at 45 of abduction and 20 of anteversion. I was unable to obtain good stability with this therefore this was removed and I reamed up to 55 mm. A 56 mm trial shell was inserted. A final 56 mm acetabular shell was inserted at 45 degrees of abduction and 20 degrees of anteversion. There was good purchase. I did place an additional 6.5 x 30 mm cancellous screw posterior superior with the aid of fluoroscopy. Good purchase was obtained. Again fluoroscopy was used to check the adequacy of placement. A neutral polyethylene liner was gently impacted. Care was taken to avoid any soft tissue interposition. Pulsatile lavage was utilized. Attention was then paid towards preparing the proximal femur. The central region was cleared of soft tissue. A canal finder was used to find the femoral canal. Sequential broaching was performed up to size 14 taking care to lateralize proximally. A calcar mill was used to fashion the medial calcar. There was good rotational stability. A 125 degree neck along with a 36 mm +1.5 head was placed. The hip was gently reduced. Fluoroscopy was used to check the adequacy of positioning along with leg lengths. I felt both were good. The hip was gently dislocated. The trial components were removed. The final size 14 collared standard press- fit femoral stem was inserted parallel to the posterior cortex. This was fully seated and there was good rotational stability. A 36 mm +1.5 head was placed. This was gently impacted. The hip was then gently reduced. Final fluoroscopic view showed adequate placement implant along with taoism of leg length. Stability was checked with 80 of external rotation and 60 of extension of the right hip. The wound was irrigated with sterile lavage. The fascia was closed with running 0 Vicryl suture. There was minimal drainage therefore a deep drain was not placed. The second dose of IV TXA was given. The subcutaneous tissues were reapproximated interrupted 2-0 Vicryl sutures. The skin was reapproximated with 3-0 subcuticular strata fix suture. Skin tape and adhesive was applied. A sterile dressing was applied. The patient was then awoken from sedation and transferred to recovery room in good condition. Blood loss was estimated at 100 mL. No complications were incurred. Sponge and needle counts were correct at the end of the case. Brian CONRAD assisted during the major components is case to include exposure, bone resection, implantation, and closure.
--- NOTE | 2023-12-23 12:36 | XR ---
EXAMINATION TYPE: XR Hip Limited LT DATE OF EXAM: 12/23/2023 COMPARISON: NONE HISTORY: Postop TECHNIQUE: One view submitted. FINDINGS: There is postsurgical change compatible hip replacement surgery. Soft tissue air compatible with rece nt surgery. Vascular calcifications. Large pelvic calcification may be related to uterine fibroid but is nonspecific. IMPRESSION: 1. Postoperative change.
[2023-12-23] MEDS: HYDROmorphone 0.5 MG/0.5 ML SYRINGE IVP PRN ×2 (12:59→16:31)
[2023-12-23] MEDS: hydrALAZINE HCL 20 MG/ML 1 ML VIAL IVP STA (13:00)
[2023-12-23] MEDS: ONDANSETRON 4 MG/2 ML VIAL IVP ONE (14:41)
[2023-12-23] MEDS ORDERED: MAGNESIUM OXIDE 400 MG TAB PO PRN ×2 (16:14→16:16)
[2023-12-23] MEDS ORDERED: NITROGLYCERIN SL TABS 0.4 MG TAB SUBLINGUAL PRN (16:14)
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
[2023-12-23] MEDS: hydrOXYzine pamoate 25 MG CAP PO PRN (17:01)
[2023-12-23] MEDS: NICOTINE 14MG/24HR PATCH TRANSDERM SCH (18:20)
[2023-12-23] MEDS: SENNOSIDES-DOCUSATE SODIUM 1 EACH TAB PO SCH (20:59)
[2023-12-24] MEDS: ONDANSETRON 4 MG/2 ML VIAL IVP PRN (02:55)
--- NOTE | 2023-12-24 06:49 | P.PN ---
Subjective Progress Note Date: 12/24/23 Principal diagnosis: Left hip osteoarthritis Patient was seen at bedside this morning lying in the right lateral recumbent position on 4 S. Patient says she has been having a lot of pain since surgery yesterday. She says she also has bilateral knee pain as well has her other hip. Patient says overnight she vomited several times. Patient is unaware of any medications that she has allergies to. Patient says she is looking forward to working with therapy later this morning. Patient is hoping to go to rehab upon discharge from the hospital. Patient says anytime she moves in bed the pain does increase around her left hip. Patient states there is some radiation up into her buttocks and just to above her left knee. Patient says she has not had a bowel movement yet, however, patient has been passing gas. Patient denies chest pain, fever, change in vision, loss of bowel/bladder control. Objective - Vital Signs Vital signs: Vital Signs Temp 99.0 F 12/24/23 02:06 Pulse 81 12/24/23 02:06 Resp 18 12/24/23 02:06 BP 171/64 12/24/23 02:06 Pulse Ox 96 12/24/23 02:06 FiO2 Intake & Output 12/23/23 12/23/23 12/24/23 06:59 18:59 06:59 Intake Total 751 Output Total 500 Balance 251 Weight 84.82 kg Intake: IV 751 Output: Urine 400 Estimated Blood Loss 100 Other: Voiding Method Bedside Commode # Voids 1 # Bowel Movements 1 - Exam Left hip: Incision is clean, dry, and intact. The exofin fusion tape is in good condition. There is minimal soft tissue swelling and ecchymosis surrounding the medial and lateral aspects of the incision. Calf is soft, no tenderness with palpation. Plantar flexion, dorsiflexion, EHL, FHL are intact. Sensory exam to light touch throughout the extremity is intact, dorsal pedis pulses 2+. Assessment and Plan Assessment: 1. Left hip osteoarthritis -Postop day 1 status post direct anterior left total hip arthroplasty Plan: 1. Left hip osteoarthritis -direct anterior left total hip arthroplasty performed yesterday, 12/23/2023. Patient at bedside this morning. Pain medication as needed. Zofran added for nausea and vomiting. PT/OT daily. Assess dressing daily. Case management to work on rehab placement. We will continue to follow patient during stay in hospital. Plan for discharge to rehab on Tuesday. 2. Appreciate medical management 3. Pain management -Percocet; Vistaril; Dilaudid 4. DVT prophylaxis -Plavix 5. GI prophylaxis -senna 6. PT/OT -weightbearing as tolerated with walker 7. Encourage incentive spirometer use 8. Discharge planning -plan for discharge to rehab on Tuesday Time with Patient: Less than 30
[2023-12-24] MEDS: CLOPIDOGREL 75 MG TAB PO SCH (09:06)
[2023-12-24] MEDS: oxyCODONE-APAP 7.5-325MG 1 EACH TAB PO PRN (09:06)
[2023-12-24] MEDS: METOPROLOL SUCCINATE (ER) 25 MG TAB.ER.24H PO SCH (09:09)
[2023-12-24] MEDS: ASPIRIN 81 MG PO SCH (09:10)
[2023-12-24] MEDS: ATORVASTATIN 80 MG TAB PO SCH (09:10)
[2023-12-24] MEDS: FUROSEMIDE 20 MG TAB PO SCH (09:10)
[2023-12-24] MEDS: DULoxetine HCL 30 MG CAPSULE.DR PO SCH (09:10)
[2023-12-24 09:27] LABS: HCT 33.6 % (37.2-46.3); HGB 11.2 g/dL (12.0-15.0); MCH 30.4 pg (27.0-32.0); MCHC 33.3 g/dL (32.0-37.0); MCV 91.1 FL (80.0-97.0); Mean Platelet Volume 12.3 FL (9.5-12.2); NRBC Per 100 WBC 0 X 10*3/uL (0.00-0.01); Platelet Count 132 X 10*3/uL (140-440); RBC 3.69 X 10*6/uL (4.10-5.20); RDW 14.1 % (11.5-14.5); WBC 10.97 X 10*3/uL (4.50-10.00)
[2023-12-24 10:16] LABS: Basophils # (A) 0.02 X 10*3/uL (0.00-0.10); Basophils % (A) 0.2 %; Eosinophils # (A) 0 X 10*3/uL (0.04-0.35); Eosinophils % (A) 0 %; Monocytes % (A) 14.6 %; Neutrophils # (A) 8.21 X 10*3/uL (1.80-7.70); Neutrophils % (A) 74.8 %
[2023-12-24] MEDS: CYCLOBENZAPRINE 5 MG TAB PO PRN (14:50)
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
--- NOTE | 2023-12-25 08:47 | P.PN ---
Subjective Progress Note Date: 12/25/23 Principal diagnosis: Left hip osteoarthritis Patient was seen at bedside this morning lying in the left lateral recumbent position on 4 S. Patient says she has been having a lot of pain since surgery still. She says she also has bilateral knee pain as well has her other hip. P melissa says she also has low back pain. Patient says she has not previously seen anyone for her back. She says she has been had to change positions every 15 minutes due to the ongoing pain. Patient says she is looking forward to working with therapy later this morning. Patient is hoping to go to rehab upon discharge from the hospital. Patient says anytime she moves in bed the pain does increase around her left hip. Patient states there is some radiation up into her buttocks and just to above her left knee. Patient says she has not had a bowel movement yet, however, patient has been passing gas. Patient denies chest pain, fever, change in vision, loss of bowel/bladder control. Objective - Vital Signs Vital signs: Vital Signs Temp 97.8 F 12/25/23 02:00 Pulse 88 12/25/23 02:00 Resp 15 12/24/23 20:00 BP 116/63 12/25/23 02:00 Pulse Ox 95 12/25/23 02:00 FiO2 Intake & Output 12/24/23 12/25/23 12/25/23 18:59 06:59 18:59 Other: Voiding Method Bedside Commode # Voids 1 2 - Exam Left hip: Incision is clean, dry, and intact. The exofin fusion tape is in good condition. There is minimal soft tissue swelling and ecchymosis surrounding the medial and lateral aspects of the incision. Calf is soft, no tenderness with palpation. Plantar flexion, dorsiflexion, EHL, FHL are intact. Sensory exam to light touch throughout the extremity is intact, dorsal pedis pulses 2+. - Labs CBC & Chem 7: 12/24/23 06:45 Labs: Abnormal Lab Results - Last 24 Hours (Table) 12/24/23 Range/Units 06:45 WBC 10.97 H (4.50-10.00) X 10*3/uL RBC 3.69 L (4.10-5.20) X 10*6/uL Hgb 11.2 L (12.0-15.0) g/dL Hct 33.6 L (37.2-46.3) % Plt Count 132 L (140-440) X 10*3/uL MPV 12.3 H (9.5-12.2) FL Neutrophils # 8.21 H (1.80-7.70) X 10*3/uL Monocytes # 1.60 H (0.20-1.00) X 10*3/uL Eosinophils # 0 L (0.04-0.35) X 10*3/uL Assessment and Plan Assessment: 1. Left hip osteoarthritis -Postop day 2 status post direct anterior left total hip arthroplasty Plan: 1. Left hip osteoarthritis -direct anterior left total hip arthroplasty performed 12/23/2023. Patient at bedside this morning. Pain medication as needed. Zofran added for nausea and vomiting. PT/OT daily. Assess dressing daily. Case management to work on rehab placement. Lyrica 150 mg twice daily added. Flexeril 5 mg 3 times daily. we will continue to follow patient during stay in hospital. Plan for discharge to rehab tomorrow 2. Appreciate medical management 3. Pain management -Percocet; Vistaril; Dilaudid; Flexeril; Lyrica 4. DVT prophylaxis -Plavix 5. GI prophylaxis -senna 6. PT/OT -weightbearing as tolerated with walker 7. Encourage incentive spirometer use 8. Discharge planning -plan for discharge to rehab tomorrow Time with Patient: Less than 30
[2023-12-25] MEDS: PREGABALIN 75 MG CAP PO SCH (08:48)
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
[2023-12-26 08:35] LABS: Basophils # (A) 0.04 X 10*3/uL (0.00-0.10); Basophils % (A) 0.6 %; Eosinophils # (A) 0.07 X 10*3/uL (0.04-0.35); HCT 27.8 % (37.2-46.3); HGB 9.2 g/dL (12.0-15.0); Lymphocytes # (A) 1.94 X 10*3/uL (0.90-5.00); Lymphocytes % (A) 27.6 %; MCH 30.6 pg (27.0-32.0); MCHC 33.1 g/dL (32.0-37.0); MCV 92.4 FL (80.0-97.0); Mean Platelet Volume 11.8 FL (9.5-12.2); Monocytes % (A) 11.4 %; NRBC Per 100 WBC 0 X 10*3/uL (0.00-0.01); Neutrophils # (A) 4.17 X 10*3/uL (1.80-7.70); Neutrophils % (A) 59.1 %; Platelet Count 126 X 10*3/uL (140-440); RBC 3.01 X 10*6/uL (4.10-5.20); RDW 14.2 % (11.5-14.5); WBC 7.04 X 10*3/uL (4.50-10.00)
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
--- NOTE | 2023-12-26 15:13 | P.PN ---
Subjective Progress Note Date: 12/26/23 Principal diagnosis: Left hip osteoarthritis Patient was seen at bedside this morning lying in the right lateral recumbent position on 4 S. patient says the pain has been somewhat improved in the hip. She says she is still having pain though. Patient says she also has low back p ain. Patient says she has not previously seen anyone for her back. She says she has had to change positions every 15 minutes due to the ongoing pain. Patient says she worked with physical therapy this morning walked around the room To the hallway and back. Patient is hoping to go to rehab upon discharge from the hospital. Patient says anytime she moves in bed the pain does increase around her left hip. Patient states cardiology did come in to see her earlier this morning. Patient says she did have a small bowel movement on Tuesday. Patient says she has been urinating since surgery without issue. Patient denies chest pain, fever, change in vision, loss of bowel/bladder control. Objective - Vital Signs Vital signs: Vital Signs Temp 98.3 F 12/26/23 13:34 Pulse 61 12/26/23 13:34 Resp 16 12/26/23 13:34 BP 102/61 12/26/23 13:34 Pulse Ox 98 12/26/23 13:34 FiO2 Intake & Output 12/25/23 12/26/23 12/26/23 18:59 06:59 18:59 Other: Voiding Method Toilet Toilet # Voids 6 3 - Exam Left hip: Incision is clean, dry, and intact. The exofin fusion tape is in good condition. There is minimal soft tissue swelling and ecchymosis surrounding the medial and lateral aspects of the incision. Calf is soft, no tenderness with palpation. Plantar flexion, dorsiflexion, EHL, FHL are intact. Sensory exam to light touch throughout the extremity is intact, dorsal pedis pulses 2+. - Labs CBC & Chem 7: 12/26/23 03:26 Labs: Abnormal Lab Results - Last 24 Hours (Table) 12/25/23 12/25/23 12/26/23 Range/Units 15:25 19:08 03:26 RBC 3.01 L (4.10-5.20) X 10*6/uL Hgb 9.2 L (12.0-15.0) g/dL Hct 27.8 L (37.2-46.3) % Plt Count 126 L (140-440) X 10*3/uL Troponin I 0.115 H* 0.099 H* (0.000-0.034) ng/mL Assessment and Plan Assessment: 1. Left hip osteoarthritis -Postop day 3 status post direct anterior left total hip arthroplasty Plan: 1. Left hip osteoarthritis -direct anterior left total hip arthroplasty performed 12/23/2023. Patient at bedside this morning. Pain medication as needed. Zofran added for nausea and vomiting. PT/OT daily. Assess dressing daily. Case management to work on rehab placement. we will continue to follow patient during stay in hospital. Plan for discharge to rehab 2. Appreciate medical management 3. Pain management -Percocet; Vistaril; Dilaudid; Flexeril; Lyrica 4. DVT prophylaxis -Plavix 5. GI prophylaxis -senna 6. PT/OT -weightbearing as tolerated with walker 7. Encourage incentive spirometer use 8. Discharge planning -plan for discharge to rehab Time with Patient: Less than 30
--- NOTE | 2023-12-26 20:39 | P.PN ---
Subjective Progress Note Date: 12/26/23 - Chief Complaint Hip surgery - History of Present Illness This is a 73-year-old patient who follows with Dr. Wong. Chronic stable medical conditions include CHF, hyperlipidemia, hypertension, osteoarthritis, overactive bladder, constipation, CAD with stent depression. Patient has undergone left total hip arthroplasty. Has some postoperative pain. Dry mouth. No nausea vomiting. Does use a walker at baseline. December 23: Significant pain at the operative site. Uncomfortable. Seen by orthopedics. Decreased appetite. Encouraged to eat a senior stack engineer diet. Some nausea December 24: Still having pain at the left hip surgical site. Today at pain below the left breast area for about 20 minutes. Troponin was 0.1 on 8-second 1 was 0.115. Patient already receiving aspirin and Plavix. EKG was unremarkable. Patient put on telemetry cardiology was consulted. Cardiology was consulted. Pain after 20 minutes resolved. 12/26/2023 Patient is seen and evaluated in follow-up today status post left hip arthroplasty. Patient reports continued pain at the surgical site. On exam patient is lying on the left hip and has been instructed to change positions frequently and get up out of the bed more often. Patient to work with physical therapy daily with plans on discharge to [facility] sometime this week. Patient did have episode of chest pain and was evaluated by cardiology recommending continue current medications and continue telemetry monitoring with outpatient follow-up. Patient with incentive spirometer at the bedside encouraged the patient to continue using at least 10 times every hour while awake. Patient needs encouragement with increased activity and supportive care. We will continue to follow with orthopedics during hospitalization. Review of systems: Constitutional: No reports of fatigue, fever, or chills Cardiovascular: No reports of chest pain or palpitations Respiratory: No reports of shortness of breath or cough GI: No reports of nausea, vomiting, or diarrhea, patient reports is passing gas and did have a bowel movement : No reports of dysuria or retention Neurovascular: reports of generalized weakness or numbness Physical examination: VITAL SIGNS: stable GENERAL: In bed, Laying directly on her left hip EYES: Pupils equal. Conjunctiva normal. HEENT: External appearance of nose and ears normal, oral cavity grossly normal. NECK: JVD not raised; masses not palpable. HEART: First and second heart sounds are normal; no edema. LUNGS: Respiratory rate normal; clear to auscultation. ABDOMEN: Soft, nontender, liver spleen not palpable, no masses palpable. PSYCH: Alert and oriented x3; mood and affect a bit anxious MUSCULOSKELETAL:No Clubbing/cyanosis;muscles-grossly intact. Dressing over the left hip incision site. OA Assessment: -Left total hip arthroplasty -chest pain, likely angina versus non-Q NC -history of CAD with stent -History of Chronic congestive heart failure, EF not known -Depression anxiety -Hyperlipidemia -Primary osteoarthritis multiple joints including low back pain -Chronic gait dysfunction uses a walker at baseline -Chronic nicotine dependence cigarette smoker -GI prophylaxis -DVT prophylaxis -Full code Plan: Patient being monitored with cardiology, orthopedics following as patient reported a history of coronary artery disease and reporting chest pain yesterday evening maintained on telemetry. Cardiology recommending continuing current medications Patient work with PT/OT therapy daily and plans are for discharge to ECF Patient has been instructed to increase activity as tolerated with orthopedic restrictions and limit laying directly on the left hip surgical site Encouraged incentive spirometer use at least 10 times every hour while awake Follow-up on repeat labs and replace electrolytes per protocol Continue current home medications and resumed as appropriate We will continue to follow with orthopedics during hospitalization. Thank you kindly for this consultation. The impression and plan of care has been dictated by Janel Merritt, Nurse Practitioner as directed. Dr. Angelita MD I have performed a history and examination and MDM of this patient, discussed the same with the dictator, and agree with the dictator's assessment and plan as written ,documented as a scribe. Based on total visit time, I have performed more than 50% of the visit. Objective - Vital Signs Vital signs: Vital Signs Temp 97.9 F 12/26/23 07:16 Pulse 65 12/26/23 09:40 Resp 17 12/26/23 09:40 BP 113/57 12/26/23 07:16 Pulse Ox 95 12/26/23 07:16 FiO2 Intake & Output 12/25/23 12/26/23 12/26/23 18:59 06:59 18:59 Other: Voiding Method Toilet Toilet # Voids 6 3 - Labs CBC & Chem 7: 12/26/23 03:26 Labs: Abnormal Lab Results - Last 24 Hours (Table) 12/25/23 12/25/23 12/25/23 Range/Units 11:44 15:25 19:08 RBC (4.10-5.20) X 10*6/uL Hgb (12.0-15.0) g/dL Hct (37.2-46.3) % Plt Count (140-440) X 10*3/uL Troponin I 0.118 H* 0.115 H* 0.099 H* (0.000-0.034) ng/mL 12/26/23 Range/Units 03:26 RBC 3.01 L (4.10-5.20) X 10*6/uL Hgb 9.2 L (12.0-15.0) g/dL Hct 27.8 L (37.2-46.3) % Plt Count 126 L (140-440) X 10*3/uL Troponin I (0.000-0.034) ng/mL
--- NOTE | 2023-12-27 09:45 | CA ---
Transthoracic Echo Report Name: Trish Rodriguez Age: 73 Gender: F : 1950 Exam Date: 12/26/2023 14:04 Exam Location: [place] [facility] Ht (in): 65 Wt (lb): 186 Ordering Physician: Juan Luis Pathak MD ([id number]) Attending/Referring Phys: Street Car Mechanic Liya Macedo RDCS Procedure CPT: Indications: cardiomyopathy Cardiac Hx: Technical Quality: Fair Contrast 1: Total Dose (mL): Contrast 2: Total Dose (mL): MEASUREMENTS (Male / Female) Normal Values 2D ECHO LV Diastolic Diameter PLAX 4.8 cm 4.2 - 5.9 / 3.9 - 5.3 cm LV Systolic Diameter PLAX 3.9 cm IVS Diastolic Thickness 1.5 cm 0.6 - 1.0 / 0.6 - 0.9 cm LVPW Diastolic Thickness 1.4 cm 0.6 - 1.0 / 0.6 - 0.9 cm LV Relative Wall Thickness 0.6 RV Internal Dim ED PLAX 3.3 cm LA Systolic Diameter LX 4.6 cm 3.0 - 4.0 / 2.7 - 3.8 cm LV Diastolic Volume MOD BP 134.3 cm??? 67 - 155 / 56 - 104 cm??? LV Systolic Volume MOD BP 58.5 cm??? 22 - 58 / 19 - 49 cm??? LV Ejection Fraction MOD BP 56.5 % >= 55 % LV Cardiac Index MOD BP 2317.3 cm???/min???m??? LV Diastolic Volume MOD 4C 159.4 cm??? LV Systolic Volume MOD 4C 84.3 cm??? LV Ejection Fraction MOD 4C 47.1 % LV Cardiac Index MOD 4C 2296.0 cm???/min???m??? LV Diastolic Length 4C 8.1 cm LV Systolic Length 4C 7.0 cm LV Diastolic Volume MOD 2C 120.4 cm??? LV Systolic Volume MOD 2C 43.5 cm??? LV Ejection Fraction MOD 2C 63.9 % LV Cardiac Index MOD 2C 2351.8 cm???/min???m??? LV Diastolic Length 2C 8.2 cm LV Systolic Length 2C 6.3 cm LA Volume 101.6 cm??? 18 - 58 / 22 - 52 cm??? LA Volume Index 50.9 cm???/m??? 16 - 28 cm???/m??? M-MODE Aortic Root Diameter MM 2.9 cm AV Cusp Separation MM 1.9 cm DOPPLER AV Peak Velocity 284.7 cm/s AV Peak Gradient 32.4 mmHg AV Mean Velocity 200.0 cm/s AV Mean Gradient 17.9 mmHg AV Velocity Time Integral 67.4 cm MV Area PHT 2.8 cm??? Mitral E Point Velocity 123.0 cm/s Mitral A Point Velocity 114.4 cm/s Mitral E to A Ratio 1.1 MV Deceleration Time 266.6 ms FINDINGS Left Ventricle Left ventricular ejection fraction is estimated at 50-55 %. Left ventricular cavity size normal. Moderately increased septal wall thickness. Moderately increased posterior wall thickness. Severely increased left ventricular diastolic volume. Mildly increased left ventricular systolic volume. Right Ventricle Mild right ventricular dilatation. Unable to estimate the right ventricular systolic pressure. Right Atrium Normal right atrial size. No right atrial thrombus or mass seen. Left Atrium Moderately increased left atrial diameter. Severely increased left atrial volume. Mildly increased left atrial area. No left atrial thrombus or mass present. Mitral Valve Mitral valve thickened. Moderate mitral annular calcification. Mild mitral regurgitation. Aortic Valve Trileaflet aortic valve. Aortic valve sclerosis. Mild aortic stenosis with a peak gradient of 32 mmHg and a mean gradient of 18 mmHg. Tricuspid Valve Structurally normal tricuspid valve. No tricuspid stenosis, regurgitation or prolapse. Pulmonic Valve Structurally normal pulmonic valve. No pulmonic regurgitation. Pericardium No pericardial effusion. Aorta Normal size aortic root and proximal ascending aorta. CONCLUSIONS Left ventricular ejection fraction 50-55% Moderate increased left ventricular wall thickness Mild to moderately dilated left atrium Mild mitral regurgitation Mild aortic stenosis Previewed by: Dr. Jack Cherry DO (Electronically Signed) Final Date: 27 December 2023 09:44
--- NOTE | 2023-12-27 10:12 | P.PN ---
Subjective Progress Note Date: 12/27/23 Principal diagnosis: Left hip osteoarthritis Patient was seen at bedside this morning lying in the right lateral recumbent position sleeping on 4 S. patient says the pain has been somewhat improved in the hip. Patient says she worked with physical therapy yesterday morning and wa lked around the room to the hallway and back. Patient is hoping to go to rehab upon discharge from the hospital. Patient says anytime she moves in bed the pain does increase around her left hip. Patient states cardiology did come in to see her yesterday. Patient says she did have a small bowel movement on Tuesday. Patient says she has been urinating since surgery without issue. Patient denies chest pain, fever, change in vision, loss of bowel/bladder control. Objective - Vital Signs Vital signs: Vital Signs Temp 98.4 F 12/27/23 07:54 Pulse 57 L 12/27/23 07:54 Resp 16 12/27/23 07:54 BP 102/65 12/27/23 07:54 Pulse Ox 96 12/27/23 07:54 FiO2 Intake & Output 12/26/23 12/27/23 12/27/23 18:59 06:59 18:59 Intake Total 540 Balance 540 Intake: Oral 540 Other: Voiding Method Toilet Toilet # Voids 5 2 - Exam Left hip: Incision is clean, dry, and intact. The exofin fusion tape is in good condition. There is minimal soft tissue swelling and ecchymosis surrounding the medial and lateral aspects of the incision. Calf is soft, no tenderness with palpation. Plantar flexion, dorsiflexion, EHL, FHL are intact. Sensory exam to light touch throughout the extremity is intact, dorsal pedis pulses 2+. - Labs CBC & Chem 7: 12/26/23 03:26 Assessment and Plan Assessment: 1. Left hip osteoarthritis -Postop day 4 status post direct anterior left total hip arthroplasty Plan: 1. Left hip osteoarthritis -direct anterior left total hip arthroplasty performed 12/23/2023. Patient at bedside this morning. Pain medication as needed. Zofran added for nausea and vomiting. PT/OT daily. Assess dressing daily. Case management to work on rehab placement. we will continue to follow patient during stay in hospital. Plan for discharge to rehab 2. Appreciate medical and cardio management 3. Pain management -Percocet; Vistaril; Dilaudid; Flexeril; Lyrica 4. DVT prophylaxis -Plavix 5. GI prophylaxis -senna 6. PT/OT -weightbearing as tolerated with walker 7. Encourage incentive spirometer use 8. Discharge planning -plan for discharge to rehab Time with Patient: Less than 30
--- NOTE | 2023-12-27 18:25 | P.PN ---
Subjective HISTORY OF PRESENTING ILLNESS Patient is a pleasant 73-year-old female with history of hypertension, hyperlipidemia, osteoarthritis and CAD status post stenting who presented for hip surgery. She did undergo cardiac workup for preoperative clearance in May of last year with findings of RN CLINICAL DOCUMENTATION of the circumflex as well as diagonal, left main and LAD disease with mild to moderate disease of the RCA. Functional assessment was abnormal and therefore underwent complex PCI with issues with sedation and patient not being able to sit on table as well as V. fib arrest during the time of the intervention. She has done fairly well since however severely debilitated with her hip and given that his been more than 6 months patient was cleared for surgery with stopping her Plavix. Patient underwent successful left total hip arthroplasty 12/23/2023. She did have a 20 minute episode of left-sided chest pain and therefore EKG and troponins were dr kathleen. EKG showed normal sinus rhythm with no significant ST or T-wave abnormalities. Troponins came back mildly elevated 0.1, 0.1, 0.09. She denies any recurrence of chest pain. She has been on Plavix. Denies any significant bleeding however hemoglobin is down to 9.2. Patient has been on metoprolol, Lasix, Plavix, aspirin, Lipitor. Blood pressures in the 110s to 130s. Currently states she feels well other than hip pain. 12/26 patient seen and examined. Patient denies any further chest pain or pressure. She states her hip pain is still bothering her. Echo performed and shows ejection fraction 50-55%. No repeat hemoglobin has been performed. PHYSICAL EXAMINATION Vital signs reviewed. CONSTITUTIONAL: No apparent distress. HEENT: Head is normocephalic. Pupils are equal, round. Sclerae anicteric. Mucous membranes of the mouth are moist. No JVD. No carotid bruit. CHEST EXAMINATION: Lungs are clear to auscultation. No chest wall tenderness is noted on palpation or with deep breathing. HEART EXAMINATION: Regular rate and rhythm. S1, S2 heard. No murmurs, gallops or rub. ABDOMEN: Soft, nontender. Positive bowel sounds. EXTREMITIES: 2+ peripheral pulses, no lower extremity edema and no calf tenderness. NEUROLOGIC EXAMINATION: Patient is awake, alert and oriented x3. ASSESSMENT non-STEMI, likely type II mechanism related to recent surgery, anemia CAD status post prior left main into LAD, diagonal branch stenting with additional CT of circumflex Hypertension Hyperlipidemia Osteoarthritis status post left total hip arthroplasty Anemia PLAN echo showing preserved EF and no further chest pain. Continue with aspirin and Plavix as well as metoprolol. EKG showing sinus bradycardia however not symptomatic and continue with metoprolol especially given non STEMI. Further recommendations to follow. Objective - Vital Signs Vital signs: Vital Signs Temp 98.3 F 12/27/23 12:53 Pulse 92 12/27/23 12:53 Resp 16 12/27/23 12:53 BP 171/95 12/27/23 12:53 Pulse Ox 98 12/27/23 12:53 FiO2 Intake & Output 12/26/23 12/27/23 12/27/23 18:59 06:59 18:59 Intake Total 540 Output Total 300 Balance 540 -300 Intake: Oral 540 Output: Urine 300 Other: Voiding Method Toilet Toilet # Voids 5 2 - Labs CBC & Chem 7: 12/26/23 03:26
--- NOTE | 2023-12-28 05:28 | P.PN ---
Subjective Progress Note Date: 12/27/23 - Chief Complaint Hip surgery - History of Present Illness This is a 73-year-old patient who follows with Dr. Wong. Chronic stable medical conditions include CHF, hyperlipidemia, hypertension, osteoarthritis, overactive bladder, constipation, CAD with stent depression. Patient has undergone left total hip arthroplasty. Has some postoperative pain. Dry mouth. No nausea vomiting. Does use a walker at baseline. December 23: Significant pain at the operative site. Uncomfortable. Seen by orthopedics. Decreased appetite. Encouraged to eat a surface lay out technician diet. Some nausea December 24: Still having pain at the left hip surgical site. Today at pain below the left breast area for about 20 minutes. Troponin was 0.1 on 8-second 1 was 0.115. Patient already receiving aspirin and Plavix. EKG was unremarkable. Patient put on telemetry cardiology was consulted. Cardiology was consulted. Pain after 20 minutes resolved. 12/26/2023 Patient is seen and evaluated in follow-up today status post left hip arthroplasty. Patient reports continued pain at the surgical site. On exam patient is lying on the left hip and has been instructed to change positions frequently and get up out of the bed more often. Patient to work with physical therapy daily with plans on discharge to [facility] sometime this week. Patient did have episode of chest pain and was evaluated by cardiology recommending continue current medications and continue telemetry monitoring with outpatient follow-up. Patient with incentive spirometer at the bedside encouraged the patient to continue using at least 10 times every hour while awake. Patient needs encouragement with increased activity and supportive care. We will continue to follow with orthopedics during hospitalization. 12/27/2023 Patient is seen and evaluated in follow-up today status post left total hip arthroplasty. Patient continues to report pain and discomfort of the left hip and will be going to [facility] on discharge. Patient requires 3 night hospitalization to discharge on ,12/29/2023. Patient encouraged to continue using incentive spirometer at least 10 times every hour while awake and getting up out of the bed more often. Patient is being followed and evaluated by cardiology. Nursing staff reporting episodes of low heart rates, EKG obtained showing bradycardia. Will continue current medication regimen per cardiology. Patient is afebrile with no reports of chest pain or shortness of breath. Patient has been tolerating diet with no reported nausea or vomiting. Review of systems: Constitutional: reports of fatigue, no fever, or chills Cardiovascular: No reports of chest pain or palpitations Respiratory: No reports of shortness of breath or cough GI: No reports of nausea, vomiting, or diarrhea, patient reports is passing gas and did have a bowel movement : No reports of dysuria or retention Neurovascular: reports of generalized weakness and continued left hip discomfort Physical examination: VITAL SIGNS: stable GENERAL: 73-year-old female who is asleep although arousable, alert and oriented x 3, well-developed, obese with early appearing EYES: Pupils equal. Conjunctiva normal. HEENT: External appearance of nose and ears normal, oral cavity grossly normal. NECK: JVD not raised; masses not palpable. HEART: S1, S2 are muffled, bradycardia noted LUNGS: Respiratory rate normal; clear to auscultation. ABDOMEN: Soft, nontender, positive bowel sounds noted, no masses palpable. PSYCH: Alert and oriented x3; mood and affect a bit anxious MUSCULOSKELETAL:No Clubbing/cyanosis;muscles-grossly intact. Dressing over the left hip incision site. OA Assessment: -Left total hip arthroplasty -chest pain, likely angina versus non-Q CA, ACS ruled out, likely type II secondary to recent surgery -history of CAD with stent -History of Chronic congestive heart failure, EF not known -Depression anxiety -Hyperlipidemia -Primary osteoarthritis multiple joints including low back pain -Chronic gait dysfunction uses a walker at baseline -Chronic nicotine dependence cigarette smoker -GI prophylaxis -DVT prophylaxis -Full code Plan: Patient being monitored with cardiology, orthopedics following as patient reported a history of coronary artery disease and reporting chest pain yesterday evening maintained on telemetry. Cardiology recommending continuing current medications. EKG obtained showing bradycardia. 2D echo performed Patient work with PT/OT therapy daily and plans are for discharge to [facility] Patient has been instructed to increase activity as tolerated with orthopedic restrictions and limit laying directly on the left hip surgical site Encouraged incentive spirometer use at least 10 times every hour while awake Follow-up on repeat labs and replace electrolytes per protocol. Follow-up CBC. No active bleeding noted Continue current home medications and resumed as appropriate We will continue to follow with orthopedics during hospitalization. Thank you kindly for this consultation. The impression and plan of care has been dictated by Janel Merritt, Nurse Practitioner as directed. Dr. Angelita MD I have performed a history and examination and MDM of this patient, discussed the same with the dictator, and agree with the dictator's assessment and plan as written ,documented as a scribe. Based on total visit time, I have performed more than 50% of the visit. Objective - Vital Signs Vital signs: Vital Signs Temp 98.4 F 12/27/23 07:54 Pulse 57 L 12/27/23 07:54 Resp 16 12/27/23 07:54 BP 102/65 12/27/23 07:54 Pulse Ox 96 12/27/23 07:54 FiO2 Intake & Output 12/26/23 12/27/23 12/27/23 18:59 06:59 18:59 Intake Total 540 Balance 540 Intake: Oral 540 Other: Voiding Method Toilet Toilet # Voids 5 2 - Labs CBC & Chem 7: 12/26/23 03:26
[2023-12-28 08:50] LABS: Basophils # (A) 0.04 X 10*3/uL (0.00-0.10); Basophils % (A) 0.6 %; Eosinophils % (A) 4.2 %; HCT 29.2 % (37.2-46.3); HGB 9.6 g/dL (12.0-15.0); Lymphocytes # (A) 2.14 X 10*3/uL (0.90-5.00); MCH 30.1 pg (27.0-32.0); MCHC 32.9 g/dL (32.0-37.0); MCV 91.5 FL (80.0-97.0); Mean Platelet Volume 10.7 FL (9.5-12.2); Monocytes # (A) 0.81 X 10*3/uL (0.20-1.00); Monocytes % (A) 11.3 %; NRBC Per 100 WBC 0 X 10*3/uL (0.00-0.01); Neutrophils # (A) 3.79 X 10*3/uL (1.80-7.70); Neutrophils % (A) 53.1 %; Platelet Count 218 X 10*3/uL (140-440); RBC 3.19 X 10*6/uL (4.10-5.20); RDW 14.1 % (11.5-14.5); WBC 7.14 X 10*3/uL (4.50-10.00)
--- NOTE | 2023-12-28 09:01 | P.PN ---
Subjective Progress Note Date: 12/28/23 Principal diagnosis: Status post direct anterior left total hip arthroplasty, non-STEMI Patient was evaluated today at bedside, she is resting in her hospital bed. Patient denies any further chest pain. Patient has been evaluated by the cardiology group, they have adjusted medications based on her likely having a non-STEMI. She is followed also by internal medicine at this time. She continues to have discomfort in her left hip. I had a long discussion with nursing today regarding getting the patient out of bed more often and into the chair and also having a shower. Objective - Vital Signs Vital signs: Vital Signs Temp 97.8 F 12/28/23 08:00 Pulse 52 L 12/28/23 08:00 Resp 15 12/28/23 08:00 BP 100/65 12/28/23 08:00 Pulse Ox 94 L 12/28/23 08:00 FiO2 Intake & Output 12/27/23 12/28/23 12/28/23 18:59 06:59 18:59 Output Total 300 Balance -300 Output: Urine 300 Other: Voiding Method Toilet # Voids 2 - Exam Left lower extremity: Incision is clean, dry, and intact. The exofin fusion tape is in good condition. There is minimal soft tissue swelling and ecchymosis surrounding the medial and lateral aspects of the incision. Calf is soft, no tenderness with palpation. Plantar flexion, dorsiflexion, EHL, FHL are intact. Sensory exam to light touch throughout the extremity is intact, dorsal pedis pulses 2+. - Labs CBC & Chem 7: 12/28/23 05:10 Labs: Abnormal Lab Results - Last 24 Hours (Table) 12/28/23 Range/Units 05:10 RBC 3.19 L (4.10-5.20) X 10*6/uL Hgb 9.6 L (12.0-15.0) g/dL Hct 29.2 L (37.2-46.3) % Immature Gran # 0.06 H (0.00-0.04) X 10*3/uL Assessment and Plan Assessment: Postoperative day #5 status post direct anterior left total hip arthroplasty Non-STEMI Other medical comorbidities Plan: Pain control, continue with current medications DVT prophylaxis, continue with current medications cardiology recommendations Wound care, leave tape in place. Discussed with nursing and aides that they can shower directly over that today and apply a nonadherent dressing over that Out of bed for all meals, continue to utilize incentive spirometer Weight-bear as tolerated, utilize walker. Continue working with PT/OT Other medical recommendations appreciated Discharge planning: Patient will be discharged to subacute rehab on 12/29/2023 Time with Patient: Less than 30
--- NOTE | 2023-12-28 15:17 | P.PN ---
Subjective HISTORY OF PRESENTING ILLNESS Patient is a pleasant 73-year-old female with history of hypertension, hyperlipidemia, osteoarthritis and CAD status post stenting who presented for hip surgery. She did undergo cardiac workup for preoperative clearance in May of last year with findings of PUMP ATTENDANT of the circumflex as well as diagonal, left main and LAD disease with mild to moderate disease of the RCA. Functional assessment was abnormal and therefore underwent complex PCI with issues with sedation and patient not being able to sit on table as well as V. fib arrest during the time of the intervention. She has done fairly well since however severely debilitated with her hip and given that his been more than 6 months patient was cleared for surgery with stopping her Plavix. Patient underwent successful left total hip arthroplasty 12/23/2023. She did have a 20 minute episode of left-sided chest pain and therefore EKG and troponins were dr kathleen. EKG showed normal sinus rhythm with no significant ST or T-wave abnormalities. Troponins came back mildly elevated 0.1, 0.1, 0.09. She denies any recurrence of chest pain. She has been on Plavix. Denies any significant bleeding however hemoglobin is down to 9.2. Patient has been on metoprolol, Lasix, Plavix, aspirin, Lipitor. Blood pressures in the 110s to 130s. Currently states she feels well other than hip pain. 12/26 patient seen and examined. Patient denies any further chest pain or pressure. She states her hip pain is still bothering her. Echo performed and shows ejection fraction 50-55%. No repeat hemoglobin has been performed. 12/27 patient seen and examined. She still has some left hip pain and knee pain. Denies any chest pain or pressure. Feeling somewhat better. Metoprolol has been held last night secondary to asymptomatic bradycardia with heart rates in the 50s. PHYSICAL EXAMINATION Vital signs reviewed. CONSTITUTIONAL: No apparent distress. HEENT: Head is normocephalic. Pupils are equal, round. Sclerae anicteric. Mucous membranes of the mouth are moist. No JVD. No carotid bruit. CHEST EXAMINATION: Lungs are clear to auscultation. No chest wall tenderness is noted on palpation or with deep breathing. HEART EXAMINATION: Regular rate and rhythm. S1, S2 heard. No murmurs, gallops or rub. ABDOMEN: Soft, nontender. Positive bowel sounds. EXTREMITIES: 2+ peripheral pulses, no lower extremity edema and no calf tenderness. NEUROLOGIC EXAMINATION: Patient is awake, alert and oriented x3. ASSESSMENT non-STEMI, likely type II mechanism related to recent surgery, anemia CAD status post prior left main into LAD, diagonal branch stenting with additi onal CT of circumflex Hypertension Hyperlipidemia Osteoarthritis status post left total hip arthroplasty Anemia PLAN Echo showing preserved EF and no further chest pain. Continue with aspirin and Plavix as well as metoprolol. EKG showing sinus bradycardia however not symptomatic and continue with metoprolol especially given non STEMI. Further recommendations to follow. stable for discharge from a cardiology standpoint. Objective - Vital Signs Vital signs: Vital Signs Temp 97.8 F 12/28/23 14:00 Pulse 57 L 12/28/23 14:00 Resp 16 12/28/23 14:00 BP 115/62 12/28/23 14:00 Pulse Ox 98 12/28/23 14:00 FiO2 Intake & Output 12/27/23 12/28/23 12/28/23 18:59 06:59 18:59 Output Total 300 Balance -300 Output: Urine 300 Other: Voiding Method Toilet # Voids 2 - Labs CBC & Chem 7: 12/28/23 05:10 Labs: Abnormal Lab Results - Last 24 Hours (Table) 12/28/23 Range/Units 05:10 RBC 3.19 L (4.10-5.20) X 10*6/uL Hgb 9.6 L (12.0-15.0) g/dL Hct 29.2 L (37.2-46.3) % Immature Gran # 0.06 H (0.00-0.04) X 10*3/uL
--- NOTE | 2023-12-29 04:46 | P.PN ---
Subjective Progress Note Date: 12/28/23 - Chief Complaint Hip surgery - History of Present Illness This is a 73-year-old patient who follows with Dr. Wong. Chronic stable medical conditions include CHF, hyperlipidemia, hypertension, osteoarthritis, overactive bladder, constipation, CAD with stent depression. Patient has undergone left total hip arthroplasty. Has some postoperative pain. Dry mouth. No nausea vomiting. Does use a walker at baseline. December 23: Significant pain at the operative site. Uncomfortable. Seen by orthopedics. Decreased appetite. Encouraged to eat a brusher diet. Some nausea December 24: Still having pain at the left hip surgical site. Today at pain below the left breast area for about 20 minutes. Troponin was 0.1 on 8-second 1 was 0.115. Patient already receiving aspirin and Plavix. EKG was unremarkable. Patient put on telemetry cardiology was consulted. Cardiology was consulted. Pain after 20 minutes resolved. 12/26/2023 Patient is seen and evaluated in follow-up today status post left hip arthroplasty. Patient reports continued pain at the surgical site. On exam patient is lying on the left hip and has been instructed to change positions frequently and get up out of the bed more often. Patient to work with physical therapy daily with plans on discharge to [facility] sometime this week. Patient did have episode of chest pain and was evaluated by cardiology recommending continue current medications and continue telemetry monitoring with outpatient follow-up. Patient with incentive spirometer at the bedside encouraged the patient to continue using at least 10 times every hour while awake. Patient needs encouragement with increased activity and supportive care. We will continue to follow with orthopedics during hospitalization. 12/27/2023 Patient is seen and evaluated in follow-up today status post left total hip arthroplasty. Patient continues to report pain and discomfort of the left hip and will be going to [facility]CF on discharge. Patient requires 3 night hospitalization to discharge on ,12/29/2023. Patient encouraged to continue using incentive spirometer at least 10 times every hour while awake and getting up out of the bed more often. Patient is being followed and evaluated by cardiology. Nursing staff reporting episodes of low heart rates, EKG obtained showing bradycardia. Will continue current medication regimen per cardiology. Patient is afebrile with no reports of chest pain or shortness of breath. Patient has been tolerating diet with no reported nausea or vomiting. 12/28/2023 Patient seen and evaluated in follow-up currently sitting up in the chair today. Patient looks much improved today and recommend to continue with getting out of the bed more often. Patient is planning on going to [facility] on . Currently no reports of chest pain or shortness of breath. Patient was evaluated by cardiology and has been cleared for charge. Recommend outpatient follow-up. Patient is afebrile. Review of systems: Constitutional: reports of fatigue, no fever, or chills Cardiovascular: No reports of chest pain or palpitations Respiratory: No reports of shortness of breath or cough GI: No reports of nausea, vomiting, or diarrhea, patient reports is passing gas and having bowel movements : No reports of dysuria or retention Neurovascular: reports of generalized weakness and continued left hip discomfort Physical examination: VITAL SIGNS: stable GENERAL: 73-year-old female who is awake sitting up in the chair, alert and oriented x 3, well-developed, obese with early appearing EYES: Pupils equal. Conjunctiva normal. HEENT: External appearance of nose and ears normal, oral cavity grossly normal. NECK: JVD not raised; masses not palpable. HEART: S1, S2 are muffled, bradycardia noted LUNGS: Respiratory rate normal; clear to auscultation. ABDOMEN: Soft, nontender, positive bowel sounds noted, no masses palpable. PSYCH: Alert and oriented x3; mood and affect a bit anxious MUSCULOSKELETAL:No Clubbing/cyanosis;muscles-grossly intact. Dressing over the left hip incision site. OA Assessment: -Left total hip arthroplasty -chest pain, likely angina versus non-Q MD, ACS ruled out, likely type II secondary to recent surgery -history of CAD with stent -History of Chronic congestive heart failure, EF not known -Depression anxiety -Hyperlipidemia -Primary osteoarthritis multiple joints including low back pain -Chronic gait dysfunction uses a walker at baseline -Chronic nicotine dependence cigarette smoker -GI prophylaxis -DVT prophylaxis -Full code Plan: Patient being monitored with cardiology, orthopedics following as patient reported a history of coronary artery disease and reporting chest pain yesterday evening maintained on telemetry. Cardiology recommending continuing current medications. EKG obtained showing bradycardia. Cardiology recommends outpatient follow-up Patient work with PT/OT therapy daily and [facility] Patient has been instructed to increase activity as tolerated with orthopedic restrictions and limit laying directly on the left hip surgical site Encouraged incentive spirometer use at least 10 times every hour while awake Continue current home medications and resumed as appropriate Orthopedics planning for [facility]23. Patient is medically stable for discharge. We will continue to follow with orthopedics during hospitalization. Thank you kindly for this consultation. The impression and plan of care has been dictated by Janel Merritt, Nurse Practitioner as directed. Dr. Angelita MD I have performed a history and examination and MDM of this patient, discussed the same with the dictator, and agree with the dictator's assessment and plan as written ,documented as a scribe. Based on total visit time, I have performed more than 50% of the visit. Objective - Vital Signs Vital signs: Vital Signs Temp 98.4 F 12/29/23 02:26 Pulse 62 12/29/23 02:26 Resp 18 12/29/23 02:26 BP 103/64 12/29/23 02:26 Pulse Ox 96 12/29/23 02:26 FiO2 Intake & Output 12/28/23 12/28/23 12/29/23 06:59 18:59 06:59 Other: Voiding Method Toilet # Voids 2 2 - Labs CBC & Chem 7: 12/28/23 05:10 Labs: Abnormal Lab Results - Last 24 Hours (Table) 12/28/23 Range/Units 05:10 RBC 3.19 L (4.10-5.20) X 10*6/uL Hgb 9.6 L (12.0-15.0) g/dL Hct 29.2 L (37.2-46.3) % Immature Gran # 0.06 H (0.00-0.04) X 10*3/uL
[2023-12-29 06:47] VITALS: BP 106/67; RESP 14; TEMP 98.6
--- NOTE | 2023-12-29 09:06 | P.PN ---
Subjective Progress Note Date: 12/29/23 Principal diagnosis: Status post direct anterior left total hip arthroplasty, non-STEMI Patient was evaluated today at bedside, she is resting in her hospital bed. Patient denies any further chest pain. Planning for discharge to subacute rehab today. Objective - Vital Signs Vital signs: Vital Signs Temp 98.6 F 12/29/23 06:45 Pulse 65 12/29/23 06:45 Resp 14 12/29/23 06:45 BP 106/67 12/29/23 06:45 Pulse Ox 89 L 12/29/23 06:45 FiO2 Intake & Output 12/28/23 12/29/23 12/29/23 18:59 06:59 18:59 Other: # Voids 2 3 - Exam Left lower extremity: Incision is clean, dry, and intact. The exofin fusion tape is in good condition. There is minimal soft tissue swelling and ecchymosis surrounding the medial and lateral aspects of the incision. Calf is soft, no tenderness with palpation. Plantar flexion, dorsiflexion, EHL, FHL are intact. Sensory exam to light touch throughout the extremity is intact, dorsal pedis pulses 2+. - Labs CBC & Chem 7: 12/28/23 05:10 Assessment and Plan Assessment: Postoperative day #6 status post direct anterior left total hip arthroplasty Non-STEMI Other medical comorbidities Plan: Pain control, continue with current medications DVT prophylaxis, continue with current medications cardiology recommendations Wound care, continue to monitor surgical dressing Out of bed for all meals, continue to utilize incentive spirometer Weight-bear as tolerated, utilize walker. Continue working with PT/OT Other medical recommendations appreciated Discharge planning: Patient will be discharged to subacute rehab on 12/29/2023 Time with Patient: Less than 30
--- NOTE | 2023-12-29 09:08 | P.DS ---
Providers Date of admission: 12/26/23 10:02 Attending physician: Bradley Broderick Consults: 12/23/23 11:46 Consult Physician Routine Consulting Provider: Henrique iSmon Consult Reason/Comments: medical management s/p direct anterior left total hip arthroplasty Do you want consulting provider notified?: Yes 12/25/23 12:36 Consult Physician Urgent Consulting Provider: Juan Luis Pathak Consult Reason/Comments: chest pain,critical troponin Do you want consulting provider notified?: Yes Primary care physician: Neel Wong Hospital Course: Date of admission: 12/23/2023 Date of discharge: 12/29/2023 Admission diagnosis: Status post direct anterior left total hip arthroplasty Discharge diagnosis: Same, non-STEMI Attending physician: Dr. Broderick Surgical procedures: Direct anterior left total hip arthroplasty Brief history: Patient is a 73-year-old female with a history of progressive primary left hip osteoarthritis. At this point patient has failed conservative treatment measures and has opted to proceed with a elective direct anterior left total hip arthroplasty. Hospital course: Details of patient's surgery can be found in operative report. Patient tolerated the procedure well and was subsequently transported to orthopedic floor. Patient's orthopeidc and medical care was provided daily. Patient had daily laboratory tests performed for evaluation of overall blood counts. Patient had daily physical therapy to include strengthening range of motion as well as education with walker ambulation. Patient was treated with Plavix for their postoperative DVT prophylaxis during their inpatient stay. Patient had been evaluated by cardiology during her hospital stay due to abnormal chest pain. Patient was diagnosed with a non-STEMI, patient underwent no surgical intervention for this. Patient reported satisfactory pain control with oral pain medications by postoperative day 2. Patient showed satisfactory progress with physical therapy. Patient moved steadily through the program and had no difficulty meeting the goals by postoperative day 6. Given patient's otherwise satisfactory course and having met physical therapy goals, plan is to discharge patient to subacute rehab on postoperative day 6. Discharge condition/disposition: Patient will be discharged to subacute rehab in stable condition. Discharge medications: Instructions are given on resumption of patient's normal daily medications per primary care recommendation, in addition patient will be prescribed Percocet 7.5 mg / 325 mg, Lyrica 150 mg, senna S, Flexeril 5 mg. Discharge instructions: 1. Wound care and infection precautions, keep incision dry and covered while showering, no lotions, creams, moisturizers. No soaking, tubs, pools, hottubs. Do not scrub over the incision. 2. Weight-bear as tolerated with walker / cane until follow-up. 3. Ice and elevate when necessary. Do not exceed 20 minutes per hour with ice pack. 4. Utilize compression sleeve until seen at first follow up appointment. 5. Visiting nursing care. 6. Home physical therapy. 7. Pain meds and anticoagulants per prescription. 8. Pain medication has potential to cause constipation. Increase oral fluid and fiber intake. Contact primary care provider if you have not had a bowel movement within 48 hours after discharge 9. No anti-inflammatory medication until discussed at first post operative visit, this including Motrin, Aleve, Mobic, Diclofenac. 10. Follow up in office at 2 weeks postop with Edward Hernandez PA-C/Brian Leigh 11. Follow up with your primary care doctor 7-10 days after discharge. 12. Contact [facility] with any questions, . Procedures: Direct anterior left total hip arthroplasty Patient Condition at Discharge: Good Plan - Discharge Summary Discharge Rx Participant: No New Discharge Prescriptions: New Sennosides/Docusate Sodium [Senna Plus 8.6-50 mg Softgel] 1 each PO DAILY #20 capsule Pregabalin [Lyrica] 150 mg PO BID #14 cap oxyCODONE HCL/ACETAMINOPHEN [Percocet 7.5-325 mg] 1 tab PO Q6HR PRN #18 tab PRN Reason: Pain Cyclobenzaprine [Flexeril] 5 mg PO TID #21 tablet Continue Aspirin 81 mg PO DAILY #0 Clopidogrel [Plavix] 75 mg PO DAILY tab No Action Docusate [Colace] 2 cap PO DAILY PRN PRN Reason: Constipation Furosemide [Lasix] 20 mg PO DAILY tab Atorvastatin [Lipitor] 80 mg PO DAILY tab DULoxetine HCL [Cymbalta] 30 mg PO DAILY Oxycodone/Acetaminophen 1 tab PO DIRECTED Magnesium 500 mg PO HS PRN PRN Reason: leg cramps Nitroglycerin Sl Tabs [Nitrostat] 0.4 mg SUBLINGUAL Q5M PRN tab PRN Reason: Chest Pain Metoprolol Succinate (ER) [Toprol XL] 12.5 mg PO DAILY tab Discharge Medication List Magnesium 500 mg PO HS PRN 05/25/23 [History] Docusate [Colace] 2 cap PO DAILY PRN 05/26/23 [History] Aspirin 81 mg PO DAILY #0 06/03/23 [Rx] Atorvastatin [Lipitor] 80 mg PO DAILY tab 06/03/23 [Rx] Clopidogrel [Plavix] 75 mg PO DAILY tab 06/03/23 [Rx] Furosemide [Lasix] 20 mg PO DAILY tab 06/03/23 [Rx] Metoprolol Succinate (ER) [Toprol XL] 12.5 mg PO DAILY tab 06/03/23 [Rx] Nitroglycerin Sl Tabs [Nitrostat] 0.4 mg SUBLINGUAL Q5M PRN tab 06/03/23 [Rx] DULoxetine HCL [Cymbalta] 30 mg PO DAILY 12/19/23 [History] Oxycodone/Acetaminophen 1 tab PO DIRECTED 12/19/23 [History] Cyclobenzaprine [Flexeril] 5 mg PO TID #21 tablet 12/26/23 [Rx] Pregabalin [Lyrica] 150 mg PO BID #14 cap 12/26/23 [Rx] Sennosides/Docusate Sodium [Senna Plus 8.6-50 mg Softgel] 1 each PO DAILY #20 capsule 12/26/23 [Rx] oxyCODONE HCL/ACETAMINOPHEN [Percocet 7.5-325 mg] 1 tab PO Q6HR PRN #18 tab 12/26/23 [Rx] Follow up Appointment(s)/Referral(s): Brian Hillman, [facility] [PHYSICIAN REC THERAPIST] - 2 Weeks Geronimo Parham, [NON-STAFF] - As Needed Patient Instructions/Handouts: Total Hip Replacement (DC), Total Hip Replacement (GEN) Activity/Diet/Wound Care/Special Instructions: Orthopedic Discharge Instructions: 1. Wound care and infection precautions, keep incision dry and covered while showering, no lotions, creams, moisturizers. No soaking, pools, hot tubs. Do not scrub over incision. 2. Weight-bear as tolerated with walker / cane until follow-up. 3. Ice and elevate when necessary. Do not exceed 20 minutes per hour with ice pack. 4. Utilize compression sleeve until seen at first follow up appointment. 5. Pain meds and anticoagulants per prescription. 6. Pain medication has potential to cause constipation. Increase oral fluid and fiber intake. Contact primary care provider if you have not had a bowel movement within 48 hours after discharge. 7. No anti-inflammatory medication until discussed at first post operative visit, this including Motrin, Aleve, Mobic, Diclofenac. 8. Follow up in office at 2 weeks postop with Edward Hernandez PA-C / Brian Hillman PA-C 9. Follow up with your primary care doctor 7-10 days after discharge. 10. Contact [facility] with any questions, . Keep incision clean, dry, intact. While showering, cover fusion tape with saran wrap. Keep fusion tape on until follow-up appointment in office in 2 weeks Discharge Disposition: TRANSFER TO SNF/ECF
--- NOTE | 2023-12-29 10:46 | P.PN ---
Subjective Progress Note Date: 12/29/23 - Chief Complaint Hip surgery - History of Present Illness This is a 73-year-old patient who follows with Dr. Wong. Chronic stable medical conditions include CHF, hyperlipidemia, hypertension, osteoarthritis, overactive bladder, constipation, CAD with stent depression. Patient has undergone left total hip arthroplasty. Has some postoperative pain. Dry mouth. No nausea vomiting. Does use a walker at baseline. December 23: Significant pain at the operative site. Uncomfortable. Seen by orthopedics. Decreased appetite. Encouraged to eat a medical photographer diet. Some nausea December 24: Still having pain at the left hip surgical site. Today at pain below the left breast area for about 20 minutes. Troponin was 0.1 on 8-second 1 was 0.115. Patient already receiving aspirin and Plavix. EKG was unremarkable. Patient put on telemetry cardiology was consulted. Cardiology was consulted. Pain after 20 minutes resolved. 12/26/2023 Patient is seen and evaluated in follow-up today status post left hip arthroplasty. Patient reports continued pain at the surgical site. On exam patient is lying on the left hip and has been instructed to change positions frequently and get up out of the bed more often. Patient to work with physical therapy daily with plans on discharge to ECF sometime this week. Patient did have episode of chest pain and was evaluated by cardiology recommending continue current medications and continue telemetry monitoring with outpatient follow-up. Patient with incentive spirometer at the bedside encouraged the patient to continue using at least 10 times every hour while awake. Patient needs encouragement with increased activity and supportive care. We will continue to follow with orthopedics during hospitalization. 12/27/2023 Patient is seen and evaluated in follow-up today status post left total hip arthroplasty. Patient continues to report pain and discomfort of the left hip and will be going to ECF on discharge. Patient requires 3 night hospitalization to discharge on ,12/29/2023. Patient encouraged to continue using incentive spirometer at least 10 times every hour while awake and getting up out of the bed more often. Patient is being followed and evaluated by cardiology. Nursing staff reporting episodes of low heart rates, EKG obtained showing bradycardia. Will continue current medication regimen per cardiology. Patient is afebrile with no reports of chest pain or shortness of breath. Patient has been tolerating diet with no reported nausea or vomiting. 12/28/2023 Patient seen and evaluated in follow-up currently sitting up in the chair today. Patient looks much improved today and recommend to continue with getting out of the bed more often. Patient is planning on going to [facility] on . Currently no reports of chest pain or shortness of breath. Patient was evaluated by cardiology and has been cleared for charge. Recommend outpatient follow-up. Patient is afebrile. 12/29/2023 Patient is seen in follow-up today no acute overnight issues noted. Patient has been cleared by cardiology for outpatient follow-up continuing current medication regimen. Patient will be going to [facility] for continued strength and mobility and is medically stable for discharge today. Patient has been encouraged to continue using incentive spirometer at least 10 times every hour while awake. Patient to follow-up with primary care on discharge.. No reported chest pain or shortness of breath. Patient has been tolerating diet and denies any nausea or vomiting. Review of systems: Constitutional: reports of fatigue, no fever, or chills Cardiovascular: No reports of chest pain or palpitations Respiratory: No reports of shortness of breath or cough GI: No reports of nausea, vomiting, or diarrhea, patient reports is passing gas and having bowel movements : No reports of dysuria or retention Neurovascular: reports of generalized weakness and continued left hip discomfort Physical examination: VITAL SIGNS: stable GENERAL: 73-year-old female who is awake sitting up in the chair, alert and oriented x 3, well-developed, obese with early appearing EYES: Pupils equal. Conjunctiva normal. HEENT: External appearance of nose and ears normal, oral cavity grossly normal. NECK: JVD not raised; masses not palpable. HEART: S1, S2 are muffled, bradycardia noted LUNGS: Respiratory rate normal; clear to auscultation. ABDOMEN: Soft, nontender, positive bowel sounds noted, no masses palpable. PSYCH: Alert and oriented x3; mood and affect a bit anxious MUSCULOSKELETAL:No Clubbing/cyanosis;muscles-grossly intact. Dressing over the left hip incision site. OA Assessment: -Left total hip arthroplasty -chest pain, likely angina versus non-Q [place], ACS ruled out, likely type II secondary to recent surgery -history of CAD with stent -History of Chronic congestive heart failure, EF not known -Depression anxiety -Hyperlipidemia -Primary osteoarthritis multiple joints including low back pain -Chronic gait dysfunction uses a walker at baseline -Chronic nicotine dependence cigarette smoker -GI prophylaxis -DVT prophylaxis -Full code Plan: Patient being monitored with cardiology, orthopedics following as patient reported a history of coronary artery disease and reporting chest pain. Cardiology recommending continuing current medications. EKG obtained showing bradycardia. Cardiology recommends outpatient follow-up Patient work with PT/OT therapy daily and plans are for discharge to [facility]. Plan is for [facility] today. Patient has been instructed to increase activity as tolerated with orthopedic restrictions and limit laying directly on the left hip surgical site Encouraged incentive spirometer use at least 10 times every hour while awake Continue current home medications and resumed as appropriate Patient is medically stable for discharge. We will continue to follow with orthopedics during hospitalization. Thank you kindly for this consultation. The impression and plan of care has been dictated by Janel Merritt, Nurse Practitioner as directed. Dr. Angelita MD I have performed a history and examination and MDM of this patient, discussed the same with the dictator, and agree with the dictator's assessment and plan as written ,documented as a scribe. Based on total visit time, I have performed more than 50% of the visit. Objective - Vital Signs Vital signs: Vital Signs Temp 98.4 F 12/29/23 02:26 Pulse 62 12/29/23 02:26 Resp 18 12/29/23 02:26 BP 103/64 12/29/23 02:26 Pulse Ox 96 12/29/23 02:26 FiO2 Intake & Output 12/28/23 12/28/23 12/29/23 06:59 18:59 06:59 Other: Voiding Method Toilet # Voids 2 2 - Labs CBC & Chem 7: 12/28/23 05:10 Labs: Abnormal Lab Results - Last 24 Hours (Table) 12/28/23 Range/Units 05:10 RBC 3.19 L (4.10-5.20) X 10*6/uL Hgb 9.6 L (12.0-15.0) g/dL Hct 29.2 L (37.2-46.3) % Immature Gran # 0.06 H (0.00-0.04) X 10*3/uL
[2023-12-29 10:59] VITALS: PULSE 66
--- NOTE | 2024-01-02 10:21 | CDI ---
Documentation Clarification Form Date: 01/02/2024 09:26:24 AM From: Kaur Oconnell RN CCDS Phone: [phone] Admit Date: 12/26/2023 10:02:00 AM Patient Name: Trish Rodriguez Visit Number: [id number] Discharge Date: 12/29/2023 12:54:00 PM ATTENTION: The Clinical Documentation Specialists (CDI) and [facility] Coding Staff appreciate your assistance in clarifying documentation. Please respond to the clarification below the line at the bottom and electronically sign. The CDI & [facility] Coding staff will review the response and follow-up if needed. Please note: Queries are made part of the Legal Health Record. If you have any questions, please contact the author of this message via ITS. Dr. Bradley Broderick As attending Physician the patients principal diagnosis the diagnosis that was chiefly responsible for the admission - has not been clearly identified and clarification is requested. On 12/22 the patient presented for an elective direct anterior left total hip arthroplasty and on 12/25 the patient developed and was made inpatient with Cardiology consult. History/Risk factors: 73 year old male with a medical history of CAD with stent, primary osteoarthritis multiple joints including low back pain, chronic congestive heart failure and chronic nicotine dependence cigarette smoker. 12/20, HP Clinical Indicators: Lab findings, Troponin I 12/24: 0.118, 0.115, 0.099 EKG showing sinus bradycardia however not symptomatic and continue with Metoprolol especially given non STEMI. ECHO, 12/26: Left ventricular ejection fraction 50-55% Moderate increased left ventricular wall thickness. Mild to moderately dilated left atrium. Mild mitral regurgitation. Mild aortic stenosis Vital Signs: 12/22 B/P 145/67, HR 42, Temp 97.2 F L, RR 18, SpO2 95% Medicine 12/25: Still having pain at the left hip surgical site. Today at pain below the left breast area for about 20 minutes. Troponin was 0.1 on 8 second 1 was 0.115. Patient already receiving aspirin and Plavix Cardiology consult 12/25: Patient with some chest pain with additional mildly elevated troponins. Her prior troponins were elevated during the time of her stenting. Check limited 2-D echo to assess left ventricular function. Continue with aspirin and Plavix. Monitor for any recurrence of chest pain however this point appears more type II mechanism. Continue Toprol however BP's borderline. Monitor her hemoglobin. Recommend monitoring for additional 24 hours and if no recurrence of chest pain with continued treatment medically Cardiology assessment, 12/25: non-STEMI, likely type II mechanism related to recent surgery, anemia CAD status post prior left main into LAD, diagonal branch stenting with additional CT of circumflex, Treatment: ECHO, EKG, Maintaining Plavix, Aspirin and Metoprolol Consults: Cardiology above In your professional opinion, can you please clarify which diagnosis, after study, was the reason chiefly responsible for the admission? [ x] Unstable Angina with Type 2 DC [ ] Left hip osteoarthritis [ ] Other, please specify [ ] Unable to determine (Template Last Revised: August 2020) MTDD
--- NOTE | 2024-01-02 10:21 | CDI ---
Documentation Clarification Form Date: 01/02/2024 09:26:24 AM From: Kaur Oconnell RN CCDS Phone: [phone] Admit Date: 12/26/2023 10:02:00 AM Patient Name: Trish Rodriguez Visit Number: [id number] Discharge Date: 12/29/2023 12:54:00 PM ATTENTION: The Clinical Documentation Specialists (CDI) and [facility] Coding Staff appreciate your assistance in clarifying documentation. Please respond to the clarification below the line at the bottom and electronically sign. The CDI & [facility] Coding staff will review the response and follow-up if needed. Please note: Queries are made part of the Legal Health Record. If you have any questions, please contact the author of this message via ITS. Dr. Bradley Broderick As attending Physician the patients principal diagnosis the diagnosis that was chiefly responsible for the admission - has not been clearly identified and clarification is requested. On 12/22 the patient presented for an elective direct anterior left total hip arthroplasty and on 12/25 the patient developed and was made inpatient with Cardiology consult. History/Risk factors: 73 year old male with a medical history of CAD with stent, primary osteoarthritis multiple joints including low back pain, chronic congestive heart failure and chronic nicotine dependence cigarette smoker. 12/20, HP Clinical Indicators: Lab findings, Troponin I 12/24: 0.118, 0.115, 0.099 EKG showing sinus bradycardia however not symptomatic and continue with metoprolol especially given non STEMI. ECHO, 12/26: Left ventricular ejection fraction 50-55% Moderate increased left ventricular wall thickness. Mild to moderately dilated left atrium. Mild mitral regurgitation. Mild aortic stenosis Vital Signs: 12/22 B/P 145/67, HR 42, Temp 97.2 F L, RR 18, SpO2 95% Medicine 12/25: Still having pain at the left hip surgical site. Today at pain below the left breast area for about 20 minutes. Troponin was 0.1 on 8 second 1 was 0.115. Patient already receiving aspirin and Plavix Cardiology consult 12/25: Patient with some chest pain with additional mildly elevated troponins. Her prior troponins were elevated during the time of her stenting. Check limited 2-D echo to assess left ventricular function. Continue with aspirin and Plavix. Monitor for any recurrence of chest pain however this point appears more type II mechanism. Continue Toprol however BP's borderline. Monitor her hemoglobin. Recommend monitoring for additional 24 hours and if no recurrence of chest pain with continued treatment medically Treatment: ECHO, EKG , Maintaining Metoprolol Consults: Cardiology above In your professional opinion, can you please clarify which diagnosis, after study, was the reason chiefly responsible for the admission? [ ] Unstable Angina with Type 2 CO [ ] Left hip osteoarthritis [ ] Other, please specify [ ] Unable to determine (Template Last Revised: August 2020) MTDD
== END 2023-12-29 12:54 | DRG 981 ==
LOC: OR 07:40 → 4SSUR 13:46 → OR 12-26 10:02
PROVIDERS: ADMIT Orthopaedic Surgery; ATTEND Orthopaedic Surgery
PROC: 0SRB04A Replacement of Left Hip Joint with Ceramic on Polyethylene Synthetic Substitute, Uncemented, Open Approach (ICD-10-PCS; principal; 2023-12-26)
PROC: 3E0T3BZ Introduction of Anesthetic Agent into Peripheral Nerves and Plexi, Percutaneous Approach (ICD-10-PCS; 2023-12-26)
DX: I25.110 Atherosclerotic heart disease of native coronary artery with unstable angina pectoris (principal); I21.A1 Myocardial infarction type 2; M16.12 Unilateral primary osteoarthritis, left hip; E78.5 Hyperlipidemia, unspecified; F17.210 Nicotine dependence, cigarettes, uncomplicated; F32.A Depression, unspecified; F41.9 Anxiety disorder, unspecified; I11.0 Hypertensive heart disease with heart failure; I25.2 Old myocardial infarction; D64.9 Anemia, unspecified; I25.10 Atherosclerotic heart disease of native coronary artery without angina pectoris; N32.81 Overactive bladder; I50.9 Heart failure, unspecified; K59.00 Constipation, unspecified; Z79.02 Long term (current) use of antithrombotics/antiplatelets; Z79.82 Long term (current) use of aspirin; Z79.899 Other long term (current) drug therapy; Z82.49 Family history of ischemic heart disease and other diseases of the circulatory system; Z95.5 Presence of coronary angioplasty implant and graft; Z85.41 Personal history of malignant neoplasm of cervix uteri
CPT/HCPCS: 64447; 73501; 85025; 93005; 93306

== ENCOUNTER → 2024-02-24 | Outpatient (CLI) | payer MEDICARE, OTHER ==
[2024-02-24 16:42] LABS: Basophils # (A) 0.05 X 10*3/uL (0.00-0.10); Basophils % (A) 0.8 %; Eosinophils # (A) 0.28 X 10*3/uL (0.04-0.35); Eosinophils % (A) 4.4 %; HCT 40.8 % (37.2-46.3); HGB 12.4 g/dL (12.0-15.0); Lymphocytes # (A) 1.27 X 10*3/uL (0.90-5.00); Lymphocytes % (A) 19.9 %; MCH 28.6 pg (27.0-32.0); MCHC 30.4 g/dL (32.0-37.0); MCV 94.2 FL (80.0-97.0); Mean Platelet Volume 12.2 FL (9.5-12.2); Monocytes # (A) 0.64 X 10*3/uL (0.20-1.00); NRBC Per 100 WBC 0 X 10*3/uL (0.00-0.01); Neutrophils # (A) 4.12 X 10*3/uL (1.80-7.70); Neutrophils % (A) 64.6 %; Platelet Count 187 X 10*3/uL (140-440); RBC 4.33 X 10*6/uL (4.10-5.20); RDW 13.9 % (11.5-14.5); WBC 6.38 X 10*3/uL (4.50-10.00)
[2024-02-24 16:44] LABS: INR 0.99 sec (0.93-1.11); Prothrombin Time 10.7 sec (9.9-11.9)
[2024-02-24 17:10] LABS: BUN/Creat Ratio 26.67 Ratio (12.00-20.00); Calcium 9.2 mg/dL (8.7-10.3); Carbon Dioxide 24.4 mmol/L (21.6-31.8); Chloride 106 mmol/L (96-109); Glucose 98 mg/dL (70-110); Potassium 3.9 mmol/L (3.5-5.5); Sodium 142 mmol/L (135-145)
== END | disposition home or self-care (01) ==
LOC: LABPAT 11:03
PROVIDERS: ATTEND Orthopaedic Surgery
DX: Z01.818 Encounter for other preprocedural examination (principal); M16.11 Unilateral primary osteoarthritis, right hip; Z22.322 Carrier or suspected carrier of Methicillin resistant Staphylococcus aureus
CPT/HCPCS: 80048; 85025; 85610; 87070

== ENCOUNTER 2024-03-07 10:35 | Inpatient (IN) | payer MEDICARE, OTHER ==
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
[~2024-03-07 10:35] MED LIST changes: -ACETAMINOPHEN TAB 500 MG TAB PO PRN; -LIDOCAINE 1% (10MG/ML) FOR IV START INTRADERMA PRN; +fentaNYL (PF) 50 MCG/ML 2 ML AMP IV PRN
[2024-03-07] MEDS: IV FLUID CONTINUATION 1,000 ML IV ONE (11:03)
[2024-03-07] MEDS: LACTATED RINGERS 1,000 ML IV SCH (11:36)
[2024-03-07] MEDS: DEXAMETHASONE SOD PHOSPHATE 4 MG/ML 1 ML VIAL IV ONE (11:36)
[2024-03-07] MEDS: ONDANSETRON 4 MG/2 ML VIAL IVP ONE (11:36)
[2024-03-07] MEDS: ACETAMINOPHEN TAB 500 MG TAB PO PRN (11:37)
[2024-03-07] MEDS: MELOXICAM 7.5 MG TAB PO PRN (11:39)
[2024-03-07] MEDS: MIDAZOLAM 2 MG/2 ML VIAL IVP ONE (12:01)
[2024-03-07] MEDS: fentaNYL (PF) 50 MCG/ML 2 ML AMP IVP ONE (12:01)
[2024-03-07] MEDS ORDERED: SUCCINYLCHOLINE CHLORIDE 200 MG/10 ML VIAL IV ONE (12:23)
[2024-03-07] MEDS ORDERED: HYDROmorphone (PF) 1 MG/ML ONE (12:23)
[2024-03-07] MEDS ORDERED: LIDOCAINE 1% INJ 10MG/ML (20 ML MDV) ONE (12:23)
[2024-03-07] MEDS ORDERED: ROPIVACAINE 5 MG/ML 30 ML VIAL ONE (12:23)
[2024-03-07] MEDS ORDERED: GLYCOPYRROLATE 0.2 MG/ML 2 ML VIAL ONE (12:23)
[2024-03-07] MEDS ORDERED: LABETALOL 5 MG/ML VIAL MDV ONE (12:23)
[2024-03-07] MEDS ORDERED: NEOSTIGMINE 1 MG/ML 10 ML VIAL ONE (12:23)
[2024-03-07] MEDS ORDERED: PROPOFOL 10 MG/ML 20 ML VIAL IV ONE (12:23)
[2024-03-07] MEDS ORDERED: ROCURONIUM 10 MG/ML (5 ML VIAL) IV ONE (12:23)
[2024-03-07] MEDS ORDERED: MIDAZOLAM 2 MG/2 ML VIAL ONE (12:23)
[2024-03-07] MEDS ORDERED: fentaNYL (PF) 50 MCG/ML 2 ML AMP ONE (12:23)
[2024-03-07] MEDS: LACTATED RINGERS 1,000 ML IV ONE (13:01)
--- NOTE | 2024-03-07 13:56 | P.ANPRN ---
Procedure Note - Anesthesia - Nerve Block Performed Right Eusebio Single Time Out Performed: Yes (1200) Date of Procedure: 03/07/24 Procedure Start Time: 12:01 Procedure Stop Time: 12:06 Location of Patient: PreOp Indication: Acute Post-Operative Pain, Requested by Surgeon Specifically requested for management of pain by DrMarley: Bradley Broderick Sedation Type: Sedate with meaningful contact maintained Preparation: Sterile Prep Position: Supine Catheter: None Needle Types: Pajunk Needle Gauge: 21 Ultrasound used to visualize needle placement: Yes Ultrasound used to observe medication spread: Yes Injectate: 0.5% Ropivacaine (see comment for volume) (30cc) Blood Aspirated: No Pain Paresthesia on Injection Noted: No Resistance on Injection: Normal Image Stored and Saved: Yes Events: Uneventful and Well Tolerated
[2024-03-07] MEDS ORDERED: MAGNESIUM HYDROXIDE 2,400 MG/30 ML CUP PO PRN (14:20)
[2024-03-07] MEDS ORDERED: HYDROcodone/APAP 5-325MG 1 EACH TAB PO PRN (14:20)
[2024-03-07] MEDS ORDERED: HYDROmorphone 0.5 MG/0.5 ML SYRINGE IVP PRN (14:20)
[2024-03-07] MEDS ORDERED: NALOXONE 0.4 MG/ML 1 ML VIAL IV PRN (14:20)
[2024-03-07] MEDS ORDERED: CYCLOBENZAPRINE 5 MG TAB PO PRN (14:24)
--- NOTE | 2024-03-07 14:37 | P.OP ---
Date of Procedure: 03/07/24 Preoperative Diagnosis: Right hip severe osteoarthrosis Postoperative Diagnosis: Same Procedure(s) Performed: Right total hip arthroplastyanterior approachpress-fit Implants: DePuy Corail size 14-135 degreecollared press-fit femoral stem, 36+1.5 cobalt chrome femoral head, 56 mm [place] acetabular shell with neutral polyethylene liner. Anesthesia: GETA Surgeon: Bradley Broderick Outside Upholsterer #1: Brian Hillman Estimated Blood Loss (ml): 200 Pathology: none sent Condition: stable Disposition: PACU Indications for Procedure: The patient is a 73-year-old female who presents with progressive right hip pain secondary to osteoarthrosis despite conservative measures. A discussion of the risks and benefits of operative intervention versus continued conservative measures was made with the patient. She opted to proceed with surgery. Operative risks include infection, neurovascular injury, fracture, possible leg length discrepancy, possible instability, possible component loosening/failure and possible need for subsequent procedures was discussed. Informed consent was obtained. Operative Findings: As below Description of Procedure: The patient was brought to the operating room, and after induction of spinal anesthesia was placed supine on the Shelly table. Positioning was checked with fluoroscopy. The right hip was then prepped and draped in a normal fashion. A 12 cm incision was then made starting 2 fingerbreadths distal and 3 finger breaths posterior to the ASIS in line with the proximal femur. The skin was incised sharply. Subcutaneous tissues were divided sharply. Electrocautery was used for hemostasis. The fascia was split in line with skin incision. The interval between the sartorius and tensor fascia callum was then bluntly developed. The posterior fascia was opened with electrocautery. The lateral circumflex vessels were identified and cauterized prior to sectioning. A retractor was placed along the superior femoral neck as well as the anterior acetabular rim. A wide capsulotomy was performed. The neck cut was then made at a 45 angle to the shaft approximately 1 1/2 cm above the level of the lesser trochanter. The head was extracted. Attention was then paid towards preparing the acetabular. Anterior and posterior retractors were placed. The remaining capsular labral tissue sharply debrided clearly defining the acetabular margins. I began reaming with a 51 mm reamer taking care to initially medialize then reaming at 45 of abduction and 20 of anteversion. Sequential reaming is performed up to 55 mm. A trial 56 mm acetabular shell was inserted in the same orientation and was fully seated. There was good rim fit and stability. Positioning was checked with fluoroscopy. The final 56 mm acetabular shell was inserted again at 45 of abduction and 20 of anteversion. This was fully seated. There was good rim fit and stability. Again fluoroscopy was used to check the adequacy of placement. A neutral polyethylene liner was gently impacted. Care was taken to avoid any soft tissue interposition. Pulsatile lavage was utilized. Attention was then paid towards preparing the proximal femur. The central region was cleared of soft tissue. A canal finder was used to find the femoral canal. Sequential broaching was performed up to size 14 taking care to lateralize proximally. A calcar mill was used to fashion the medial calcar. There was good rotational stability. A standard neck along with a 36 mm +1.5 head was placed. The hip was gently reduced. Fluoroscopy was used to check the adequacy of positioning along with leg lengths. I felt both were good. The hip was gently dislocated. The trial components were removed. The final size 14 collared standard press-fit femoral stem was inserted parallel to the posterior cortex. This was fully seated and there was good rotational stability. A 36 mm +1.5 cobalt chrome femoral head was placed. This was gently impacted. The hip was then gently reduced. Final fluoroscopic view showed adequate placement implant along with adventist of leg length. Stability was checked with 80 of external rotation and 60 of extension of the right hip. The wound was irrigated with sterile lavage. The fascia was closed with running 0 Vicryl suture. There was minimal drainage therefore a deep drain was not placed. The second dose of IV TXA was given. The subcutaneous tissues were reapproximated interrupted 2-0 Vicryl sutures. The skin was reapproximated with 3-0 subcuticular strata fix suture. Skin tape and adhesive was applied. A sterile dressing was applied. The patient was then awoken from sedation and transferred to recovery room in good condition. Blood loss was estimated at 200 mL. No complications were incurred. Sponge and needle counts were correct at the end of the case. Brian CONRAD assisted during the major components is case to include exposure, bone resection, implantation, and closure.
[2024-03-07] MEDS: HYDROmorphone 0.5 MG/0.5 ML SYRINGE IVP PRN (14:58)
--- NOTE | 2024-03-07 15:31 | XR ---
EXAMINATION TYPE: XR Hip Limited RT DATE OF EXAM: 03/07/2024 2:52 PM CLINICAL INDICATION: Female, 73 years old with history of Status post hip surgery, assess surgical al ignme alignment COMPARISON: None. TECHNIQUE: XR Hip Limited RT; hip was examined in the frontal projection FINDINGS: Post arthroplasty changes, hardware is intact, alignment is appropriate. No evidence of fra cture. Postoperative changes of the soft tissues with subcutaneous gas. No evidence of any acute osse ous pathology or joint dislocation. IMPRESSION: Hip arthroplasty with hardware intact and in appropriate alignment. No acute fracture. [facility], , 03/07/2024 3:29 PM
[2024-03-07] MEDS: HYDROcodone/APAP 10-325MG 1 EACH TAB PO PRN (16:42)
[2024-03-07] MEDS ORDERED: NITROGLYCERIN SL TABS 0.4 MG TAB SUBLINGUAL PRN (19:53)
[2024-03-07] MEDS ORDERED: NON FORMULARY DRUG (Sennosides/Docusate Sodium [Senna Plus 8.6-50 Mg Softgel] 1 EACH Capsu PO SCH (21:00)
[2024-03-07] MEDS ORDERED: NON FORMULARY DRUG (Pregabalin [Lyrica] 150 MG Capsule) PO SCH (21:00)
[2024-03-07] MEDS: ATORVASTATIN 80 MG TAB PO SCH (21:02)
[2024-03-07] MEDS: CYCLOBENZAPRINE 5 MG TAB PO SCH (21:02)
[2024-03-07] MEDS: FAMOTIDINE 20 MG TAB PO SCH (21:02)
[2024-03-07] MEDS: SENNOSIDES-DOCUSATE SODIUM 1 EACH TAB PO SCH (21:02)
[2024-03-07] MEDS: PREGABALIN 75 MG CAP PO SCH (21:02)
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
[2024-03-07] MEDS: hydrOXYzine pamoate 25 MG CAP PO PRN (23:21)
[2024-03-08] MEDS: HYDROmorphone 0.5 MG/0.5 ML SYRINGE IVP PRN (04:13)
[2024-03-08 08:35] LABS: Basophils # (A) 0.05 X 10*3/uL (0.00-0.10); Basophils % (A) 0.6 %; Eosinophils # (A) 0.02 X 10*3/uL (0.04-0.35); Eosinophils % (A) 0.2 %; HGB 9.7 g/dL (12.0-15.0); Lymphocytes # (A) 1.55 X 10*3/uL (0.90-5.00); Lymphocytes % (A) 17.7 %; MCH 28.3 pg (27.0-32.0); MCHC 31.3 g/dL (32.0-37.0); MCV 90.4 FL (80.0-97.0); Mean Platelet Volume 11.5 FL (9.5-12.2); Monocytes # (A) 1.02 X 10*3/uL (0.20-1.00); Monocytes % (A) 11.7 %; NRBC Per 100 WBC 0 X 10*3/uL (0.00-0.01); Neutrophils # (A) 6.06 X 10*3/uL (1.80-7.70); Neutrophils % (A) 69.3 %; Platelet Count 206 X 10*3/uL (140-440); RBC 3.43 X 10*6/uL (4.10-5.20); RDW 14.2 % (11.5-14.5); WBC 8.74 X 10*3/uL (4.50-10.00)
[2024-03-08] MEDS: LACTULOSE 20 GM/30 ML CUP PO SCH (10:02)
[2024-03-08] MEDS: FUROSEMIDE 20 MG TAB PO SCH (10:04)
[2024-03-08] MEDS ORDERED: HYDROcodone/APAP 10-325MG 1 EACH TAB PO PRN (10:16)
[2024-03-08] MEDS ORDERED: HYDROcodone/APAP 5-325MG 1 EACH TAB PO PRN (10:16)
[2024-03-08] MEDS: ASPIRIN 81 MG PO SCH (10:36)
[2024-03-08] MEDS: CLOPIDOGREL 75 MG TAB PO SCH (10:37)
[2024-03-08] MEDS: oxyCODONE-APAP 7.5-325MG 1 EACH TAB PO PRN (10:47)
[2024-03-08] MEDS: RIVAROXABAN 10 MG TAB PO SCH (10:51)
--- NOTE | 2024-03-08 12:15 | P.PN ---
Subjective Progress Note Date: 03/08/24 Principal diagnosis: Right hip severe osteoarthritis Patient was seen at bedside this morning lying semirecumbent position with dressing present over it. Patient says she did work with therapy this morning is able to walk on the hallway using walker and go up and down steps. She says she has been ambulating to the bathroom as well. She says she has urinated since surgery yesterday she. Patient says she has not had bowel movement, however, patient says she has been passing gas. Patient is hoping to go to [facility]/rehab upon discharge as she did after her previous joint replacement. She says she does not have and also help her at home. Patient says she has taken Percocet at home to help with pain. Patient denies chest pain, fever, shortness breath, nausea, vomiting, change in vision, loss of bladder control. Objective - Vital Signs Vital signs: Vital Signs Temp 98.1 F 03/08/24 07:08 Pulse 58 L 03/08/24 07:08 Resp 18 03/08/24 11:35 BP 108/68 03/08/24 07:10 Pulse Ox 95 03/08/24 07:08 FiO2 Intake & Output 03/07/24 03/08/24 03/08/24 18:59 06:59 18:59 Intake Total 1550 1160 Output Total 200 Balance 1350 1160 Weight 88 kg 77.5 kg Intake: IV 1550 Intake, IV Titration 200 Amount Lactated Ringers 1,000 ml 100 @ 20 mls/hr IV .Q24H KEENAN Rx#:[id number] ceFAZolin 2 gm In Sodium 100 Chloride 0.9% 50 ml @ 100 mls/hr IVPB Q8H KEENAN Rx#: [id number] Oral 960 Output: Estimated Blood Loss 200 Other: Voiding Method Toilet Toilet # Voids 3 4 # Bowel Movements 1 - Exam Right hip: Incision is clean, dry, and intact. The exofin fusion tape is in good condition. There is minimal soft tissue swelling and ecchymosis surrounding the medial and lateral aspects of the incision. Calf is soft, no tenderness with palpation. Plantar flexion, dorsiflexion, EHL, FHL are intact. Sensory exam to light touch throughout the extremity is intact, dorsal pedis pulses 2+. - Labs CBC & Chem 7: 03/08/24 04:49 Labs: Abnormal Lab Results - Last 24 Hours (Table) 03/08/24 Range/Units 04:49 RBC 3.43 L (4.10-5.20) X 10*6/uL Hgb 9.7 L (12.0-15.0) g/dL Hct 31.0 L (37.2-46.3) % MCHC 31.3 L (32.0-37.0) g/dL Monocytes # 1.02 H (0.20-1.00) X 10*3/uL Eosinophils # 0.02 L (0.04-0.35) X 10*3/uL Assessment and Plan Assessment: 1. Right hip osteoarthritis - Postop day 1 status post direct anterior right total hip arthroplasty Plan: 1. Right hip osteoarthritis - direct anterior right total hip arthroplasty performed yesterday, 03/08/2024. Patient stable at bedside this morning. Case management working on rehab placement. Patient to be weightbearing as tolerated with walker and assistance as needed. Plan for discharge home with health services versus rehab within the next couple days. 2. Appreciate medical management 3. Pain management - Percocet; Vistaril 4. DVT prophylaxis - Plavix; aspirin 5. GI prophylaxis - senna 6. PT/OT - WBAT w/walker and assistance as needed 7. Encourage incentive spirometer use 8. Discharge planning - Plan for discharge home with health services versus rehab within the next couple days. Time with Patient: Less than 30
[2024-03-08] MEDS: FERROUS SULFATE 325 MG TAB PO SCH (12:38)
[2024-03-08] MEDS: SODIUM FERRIC GLUCONAT-SUCROSE 125 MG in SODIUM CHLORIDE 0.9% 100 ML IVPB SCH (12:41)
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
--- NOTE | 2024-03-09 07:30 | P.PN ---
Subjective Progress Note Date: 03/09/24 Principal diagnosis: Right hip severe osteoarthritis Patient was seen at bedside this morning lying back in chair with dressing over right hip. Patient says she did work with therapy yesterday morning and was able to walk down the hallway using walker and go up and down steps. She says she has been ambulating to the bathroom as well. She says she has urinated since surgery without issue. Patient says she has not had bowel movement, however, patient says she has been passing gas. Patient says she has taken Percocet at home to help with pain. Patient denies chest pain, fever, shortness breath, nausea, vomiting, change in vision, loss of bladder control. Objective - Vital Signs Vital signs: Vital Signs Temp 98.3 F 03/09/24 06:52 Pulse 66 03/09/24 06:52 Resp 17 03/09/24 06:52 BP 112/66 03/09/24 06:52 Pulse Ox 95 03/09/24 06:52 FiO2 Intake & Output 03/08/24 03/09/24 03/09/24 18:59 06:59 18:59 Intake Total 650 1340 Balance 650 1340 Intake: Oral 650 1340 Other: Voiding Method Toilet Toilet # Voids 3 3 # Bowel Movements 1 - Exam Right hip: Incision is clean, dry, and intact. The exofin fusion tape is in good condition. There is minimal soft tissue swelling and ecchymosis surrounding the medial and lateral aspects of the incision. Calf is soft, no tenderness with palpation. Plantar flexion, dorsiflexion, EHL, FHL are intact. Sensory exam to light touch throughout the extremity is intact, dorsal pedis pulses 2+. - Labs CBC & Chem 7: 03/08/24 04:49 Labs: Abnormal Lab Results - Last 24 Hours (Table) 03/08/24 Range/Units 04:49 RBC 3.43 L (4.10-5.20) X 10*6/uL Hgb 9.7 L (12.0-15.0) g/dL Hct 31.0 L (37.2-46.3) % MCHC 31.3 L (32.0-37.0) g/dL Monocytes # 1.02 H (0.20-1.00) X 10*3/uL Eosinophils # 0.02 L (0.04-0.35) X 10*3/uL Assessment and Plan Assessment: 1. Right hip osteoarthritis - Postop day 2 status post direct anterior right total hip arthroplasty Plan: 1. Right hip osteoarthritis - direct anterior right total hip arthroplasty performed 03/08/2024. Patient stable at bedside this morning. [facility] unable to approve patient for placement. Patient to be weightbearing as tolerated with walker and assistance as needed. Patient did do well with PT/OT yesterday. Discharge home today with health services. 2. Appreciate medical management 3. Pain management - Percocet; Vistaril 4. DVT prophylaxis - Plavix; aspirin 5. GI prophylaxis - senna 6. PT/OT - WBAT w/walker and assistance as needed 7. Encourage incentive spirometer use 8. Discharge planning - discharge home with health services today Time with Patient: Less than 30
--- NOTE | 2024-03-09 07:34 | P.DS ---
Providers Date of admission: 03/07/24 14:20 Expected date of discharge: 03/09/24 Attending physician: Bradley Broderick Consults: 03/07/24 14:20 Consult Physician Routine Consulting Provider: Henrique Simon Consult Reason/Comments: medical management s/p direct anterior right total hip arthroplasty Do you want consulting provider notified?: Yes Primary care physician: Neel Wong [facility] Course: Date of admission: 03/07/2024 Date of discharge: 03/09/2024 Admission diagnosis: Right hip osteoarthritis Discharge diagnosis: Same Attending physician: Dr. Broderick Surgical procedures: Direct anterior right total hip arthroplasty Brief history: Patient is a 73-year-old female with a history of progressive primary right hip osteoarthritis. At this point patient has failed conservative treatment measures and has opted to proceed with a elective direct anterior right total hip arthroplasty. Hospital course: Details of patient's surgery can be found in operative report. Patient tolerated the procedure well and was subsequently transported to orthopedic floor. Patient's orthopeidc and medical care was provided daily. Patient had daily laboratory tests performed for evaluation of overall blood counts. Patient had daily physical therapy to include strengthening range of motion as well as education with walker ambulation. Patient was treated with Plavix and aspirin for their postoperative DVT prophylaxis during their inpatient stay. Patient was noted to have a relatively uneventful postoperative course. Patient reported satisfactory pain control with oral pain medications by postoperative day 2. Patient showed satisfactory progress with physical therapy. Patient moved steadily through the program and had no difficulty meeting the goals by postoperative day 2. Given patient's otherwise satisfactory course and having met physical therapy goals, plan is to discharge patient home with health services on postoperative day 2. Discharge condition/disposition: Patient will be discharged home with health services in stable condition. Discharge medications: Instructions are given on resumption of patient's normal daily medications per primary care recommendation, in addition patient will be prescribed Percocet; senna; resume aspirin and Plavix once home for DVT prophylaxis. Discharge instructions: 1. Wound care and infection precautions, keep incision dry and covered while showering, no lotions, creams, moisturizers. No soaking, tubs, pools, hottubs. Do not scrub over the incision. 2. Weight-bear as tolerated with walker / cane until follow-up. 3. Ice and elevate when necessary. Do not exceed 20 minutes per hour with ice pack. 4. Utilize compression sleeve until seen at first follow up appointment. 5. Visiting nursing care. 6. Home physical therapy. 7. Pain meds and anticoagulants per prescription. 8. Pain medication has potential to cause constipation. Increase oral fluid and fiber intake. Contact primary care provider if you have not had a bowel movement within 48 hours after discharge 9. No anti-inflammatory medication until discussed at first post operative visit, this including Motrin, Aleve, Mobic, Diclofenac. 10. Follow up in office at 2 weeks postop with Edward Hernandez PA-C / Brian Hillman PA-C 11. Follow up with your primary care doctor 7-10 days after discharge. 12. Contact [facility] with any questions, . Assessment: Right hip osteoarthritis Procedures: Direct anterior right total hip arthroplasty Patient Condition at Discharge: Good Plan - Discharge Summary Discharge Rx Participant: No New Discharge Prescriptions: New oxyCODONE HCL/ACETAMINOPHEN [Percocet 7.5-325 mg] 1 tab PO Q6HR PRN #20 tab PRN Reason: Pain Sennosides/Docusate Sodium [Senna Plus 8.6-50 mg Softgel] 1 each PO DAILY #20 capsule Continue Aspirin 81 mg PO DAILY #0 Clopidogrel [Plavix] 75 mg PO DAILY tab No Action Furosemide [Lasix] 20 mg PO DAILY tab Pregabalin [Lyrica] 150 mg PO BID #14 cap Sennosides/Docusate Sodium [Senna Plus 8.6-50 mg Softgel] 1 each PO BID Atorvastatin [Lipitor] 80 mg PO HS Nitroglycerin Sl Tabs [Nitrostat] 0.4 mg SUBLINGUAL Q5M PRN tab PRN Reason: Chest Pain oxyCODONE HCL/ACETAMINOPHEN [Percocet 7.5-325 mg] 1 tab PO Q6HR PRN #18 tab PRN Reason: Pain Lactulose 10 gm PO DAILY Cyclobenzaprine [Flexeril] 5 mg PO HS Discharge Medication List Aspirin 81 mg PO DAILY #0 06/03/23 [Rx] Clopidogrel [Plavix] 75 mg PO DAILY tab 06/03/23 [Rx] Furosemide [Lasix] 20 mg PO DAILY tab 06/03/23 [Rx] Nitroglycerin Sl Tabs [Nitrostat] 0.4 mg SUBLINGUAL Q5M PRN tab 06/03/23 [Rx] Pregabalin [Lyrica] 150 mg PO BID #14 cap 12/26/23 [Rx] oxyCODONE HCL/ACETAMINOPHEN [Percocet 7.5-325 mg] 1 tab PO Q6HR PRN #18 tab 12/26/23 [Rx] Atorvastatin [Lipitor] 80 mg PO HS 03/01/24 [History] Cyclobenzaprine [Flexeril] 5 mg PO HS 03/01/24 [History] Lactulose 10 gm PO DAILY 03/01/24 [History] Sennosides/Docusate Sodium [Senna Plus 8.6-50 mg Softgel] 1 each PO BID 03/01/24 [History] Sennosides/Docusate Sodium [Senna Plus 8.6-50 mg Softgel] 1 each PO DAILY #20 capsule 03/09/24 [Rx] oxyCODONE HCL/ACETAMINOPHEN [Percocet 7.5-325 mg] 1 tab PO Q6HR PRN #20 tab 03/09/24 [Rx] Follow up Appointment(s)/Referral(s): Brian Hillman, [facility] [PHYSICIAN [employer]IST [employer]] - 2 Weeks Patient Instructions/Handouts: Anterior Hip Replacement (DC), Anterior Hip Replacement (GEN) Activity/Diet/Wound Care/Special Instructions: Orthopedic Discharge Instructions: 1. Wound care and infection precautions, keep incision dry and covered while showering, no lotions, creams, moisturizers. No soaking, pools, hot tubs. Do not scrub over incision. 2. Weight-bear as tolerated with walker / cane until follow-up. 3. Ice and elevate when necessary. Do not exceed 20 minutes per hour with ice pack. 4. Utilize compression sleeve until seen at first follow up appointment. 5. Pain meds and anticoagulants per prescription. 6. Pain medication has potential to cause constipation. Increase oral fluid and fiber intake. Contact primary care provider if you have not had a bowel movement within 48 hours after discharge. 7. No anti-inflammatory medication until discussed at first post operative visit, this including Motrin, Aleve, Mobic, Diclofenac. 8. Follow up in office at 2 weeks postop with Edward Hernandez PA-C / Brian Hillman PA-C 9. Follow up with your primary care doctor 7-10 days after discharge. 10. Contact [facility] with any questions, . Keep incision clean, dry, intact. While showering, cover fusion tape with Saran wrap. Keep fusion tape on until follow-up appointment in office in 2 weeks. Discharge Disposition: HOME WITH HOME HEALTH SERVICES
[2024-03-09 11:56] LABS: Basophils % (A) 1 %; Eosinophils # (A) 0.1 k/uL (0-0.7); Eosinophils % (A) 2 %; HCT 28.8 % (34.0-46.0); HGB 9.1 gm/dL (11.4-16.0); Hypochromasia Moderate; Lymphocytes # (A) 1.7 k/uL (1.0-4.8); Lymphocytes % (A) 25 %; MCH 28.5 pg (25.0-35.0); MCHC 31.4 g/dL (31.0-37.0); MCV 90.8 fL (80.0-100.0); Mean Platelet Volume 8.2; Monocytes # (A) 0.6 k/uL (0-1.0); Monocytes % (A) 9 %; Neutrophils # (A) 4.2 k/uL (1.3-7.7); Neutrophils % (A) 61 %; Platelet Count 251 k/uL (150-450); RBC 3.18 m/uL (3.80-5.40); RDW 13.9 % (11.5-15.5); WBC 6.9 k/uL (3.8-10.6)
[2024-03-09 14:27] VITALS: BP 144/64; PULSE 95; RESP 16; TEMP 98.6
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
--- NOTE | 2024-03-20 18:22 | FL ---
EXAMINATION TYPE: FL guidance operating room, XR Hip Limited RT DATE OF EXAM: 03/07/2024 2:14 PM COMPARISON: Pre Operative Images if available both CT/MRI or plain film CLINICAL INDICATION: Female, 73 years old with history of RIGHT ANTERIOR HIP; TECHNIQUE: FL guidance operating room, XR Hip Limited RT, multiple fluoroscopic images provided for p rocedure. Total fluoroscopy time: 40 seconds Total submitted images to PACS: 1 DAP: 2.5362 mGym2 Gycm2 uGym2 cGycm2 FINDINGS: Fluoroscopic images during internal fixation/arthroplasty demonstrate fixation hardware in appropriat e position. Hardware appears intact. No immediate complication identified. IMPRESSION: 1. No evidence for intraoperative complication. 2. Please see the operative/procedural note for further details. [facility], , 03/20/2024 6:19 PM
== END 2024-03-09 15:36 | disposition home health service (06) | DRG 470 ==
LOC: OR 10:35 → 4SSUR 14:20
PROVIDERS: ADMIT Orthopaedic Surgery; ATTEND Orthopaedic Surgery
PROC: 0SR902A Replacement of Right Hip Joint with Metal on Polyethylene Synthetic Substitute, Uncemented, Open Approach (ICD-10-PCS; principal; 2024-03-07 12:30)
DX: M16.11 Unilateral primary osteoarthritis, right hip (principal); D62 Acute posthemorrhagic anemia; I50.32 Chronic diastolic (congestive) heart failure; I11.0 Hypertensive heart disease with heart failure; E78.5 Hyperlipidemia, unspecified; N32.81 Overactive bladder; K59.09 Other constipation; M62.838 Other muscle spasm; N39.3 Stress incontinence (female) (male); I25.10 Atherosclerotic heart disease of native coronary artery without angina pectoris; F17.210 Nicotine dependence, cigarettes, uncomplicated; Z96.642 Presence of left artificial hip joint; Z85.41 Personal history of malignant neoplasm of cervix uteri; I25.2 Old myocardial infarction; Z79.82 Long term (current) use of aspirin; Z79.02 Long term (current) use of antithrombotics/antiplatelets; Z79.899 Other long term (current) drug therapy; Z95.5 Presence of coronary angioplasty implant and graft
CPT/HCPCS: 64447; 73501; 85025